=== PATIENT | male | born 1965 | race Caucasian/White ===

== ENCOUNTER 2016-08-06 15:20 | Emergency (ER) | payer MEDICARE, BC, OTHER ==
[~2016-08-06] VITALS: Ht 172.7 cm; Wt 110.0 kg
[~2016-08-06 15:20] MED LIST: CLON.2 PO; LORTA10 PO; NICO21DI2 TD; OXYC15TA PO; OXYC80TA PO; PROT40TA PO; SUCR1S PO; XANA0.5T PO
[2016-08-06 15:22] VITALS: BP 139/86; PULSE 107; RESP 16; TEMP 97.7; O2SAT 93
[2016-08-06] MEDS ORDERED: [UNRECOGNIZED DRUG - REMARK] LEFT EYE (15:45)
[2016-08-06] MEDS ORDERED: CLON0.2T PO ×2 (15:45→19:27)
[2016-08-06] MEDS ORDERED: DEPRESSION PO (16:03)
--- NOTE | 2016-08-06 16:05 | PD ---
HPI Chief Complaint: Fall Time Seen by Provider: 15:43 Travel History International Travel<30 days: No Contact w/Intl Traveler<30days: No Traveled to known affect area: No History of Present Illness HPI This 50-year-old male said he had a fall 2 days ago. He tripped on something and fell forward. He is not sure if he had a loss of consciousness. He does think he was on the ground for about 15 minutes. 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 At times. He also has some left facial palsy. He has a history of hypertension and has run out of his blood pressure medicine. He is here for evaluation of injuries from a fall. He complains of pain in his right arm. The arm is diffusely swollen and ecchymotic. He also has a lot of trouble with his left eye and sees an community organizer locally. He is on steroid drops in left eye. Patient admits to drinking a 12 pack a day but has never been told that he has cirrhosis and denies any history of withdrawal. PFSH Past Medical History Hx Anticoagulant Therapy: No Arthritis: Yes Depression: Yes Cardiovascular Problems: Yes (HTN) Diabetes: Yes Patient Takes Glucophage: No Diminished Hearing: No Gastrointestinal Disorders: Yes GERD: Yes Hypertension: Yes Medical other: Yes (CATERACT) Neurologic: Yes (BALANCE ISSUES) Immunizations Current: Yes Ulcer: Yes Tetanus Vaccination: > 5 Years Influenza Vaccination: Yes Past Surgical History Abdominal Surgery: Yes (gastric bypass- 2010, perforated bowel 02/19/13 & ) Cholecystectomy: Yes Ear Surgery: Yes (LEFT EAR) Eye Surgery: Yes Neurologic Surgery: Yes (removal of acoustic neuroma) Other Surgery: Yes (bicep- right arm) Social History Alcohol Use: No Tobacco Use: No (quit 3 weeks ago, smoked 4 ppd for 19 yrs) Substance Use: No Allergies-Medications (Allergen,Severity, Reaction): Coded Allergies: Ativan (Verified Allergy, Severe, AGITATION, 08/06/16) Celebrex (Verified Allergy, Severe, Swelling, 08/06/16) Reported Meds & Prescriptions Reported Meds & Active Scripts Active Reported [Depression] 1 Tab PO DIRECTED [Eye Steroid] 1 Drop LEFT EYE DIRECTED Clonidine (Clonidine HCl) 0.2 Mg Tab 0.2 Mg PO BID Review of Systems General / Constitutional: No: Fever, Chills Eyes: No: Diploplia, Blurred Vision HENT: Positive: Vertigo, No: Headaches, Rhinitis Cardiovascular: No: Chest Pain or Discomfort, Palpitations Respiratory: No: Cough Gastrointestinal: No: Nausea, Vomiting Genitourinary: No: Urgency, Frequency Musculoskeletal: Positive: Myalgias, Arthralgias Skin: No Itching, No Dryness Neurologic: Positive: Dizziness, No: Weakness Endocrine: Positive: Heat Intolerance, Cold Intolerance Hematologic/Lymphatic: Positive: Easy Bruising Physical Exam Narrative GENERAL: Well-developed male SKIN: Focused skin assessment warm/dry. There is extensive bruising of the face , the right arm and the right flank area HEAD: Normocephalic. He has bilateral periorbital ecchymoses. Pupils are equal. There is a left subconjunctival hemorrhage. It does appear to be some scleral icterus ENT: No nasal bleeding or discharge. Mucous membranes pink and moist. NECK: Trachea midline. No JVD. CARDIOVASCULAR: Regular rate and rhythm. No murmur appreciated. RESPIRATORY: No accessory muscle use. Clear to auscultation. Breath sounds equal bilaterally. GASTROINTESTINAL: Abdomen soft, non-tender, nondistended. Hepatic and splenic margins not palpable. There is extensive ecchymosis in the right flank area MUSCULOSKELETAL: No obvious deformities. No clubbing. No cyanosis. No edema. He has bruising and swelling of the upper and lower arm on the right side. This some tenderness with palpation of the elbow. Passive flexion and extension of the wrist does not elicit much pain NEUROLOGICAL: Awake and alert. No obvious cranial nerve deficits. Motor grossly within normal limits. Normal speech. PSYCHIATRIC: Appropriate mood and affect; insight and judgment normal. Data Data Last Documented VS Vital Signs Date Time Temp Pulse Resp B/P Pulse Ox O2 Delivery O2 Flow Rate FiO2 08/06/16 15:22 97.7 107 16 139/86 93 Orders Complete Blood Count With Diff (08/06/16 15:53) Comprehensive Metabolic Panel (08/06/16 15:53) Creatine Kinase (Cpk) (08/06/16 15:53) Prothrombin Time / Inr (Pt) (08/06/16 15:53) Act Partial Throm Time (Ptt) (08/06/16 15:53) Urinalysis - C+S If Indicated (08/06/16 15:53) Ct Brain W/O Iv Contrast(Rout) (08/06/16 15:53) Elbow, Complete (4 Vws) (08/06/16 15:53) Wrist, Complete ([id number]) (08/06/16 15:53) Ondansetron Inj (Zofran Inj) (08/06/16 17:00) Morphine Inj (Morphine Inj) (08/06/16 17:00) Phytonadione Inj (Vitamin K Inj) (08/06/16 17:00) Ct Abd/Pel W Iv Contrast(Rout) (08/06/16 16:53) Iohexol 350 Inj (Omnipaque 350 Inj) (08/06/16 18:13) Labs Laboratory Tests Test 08/06/16 08/06/16 16:00 16:20 White Blood Count 5.9 TH/MM3 Red Blood Count 2.55 MIL/MM3 Hemoglobin 9.0 GM/DL Hematocrit 26.6 % Mean Corpuscular Volume 104.5 FL Mean Corpuscular Hemoglobin 35.2 PG Mean Corpuscular Hemoglobin 33.7 % Concent Red Cell Distribution Width 17.8 % Platelet Count 22 TH/MM3 Mean Platelet Volume 8.3 FL Neutrophils (%) (Auto) 68.2 % Lymphocytes (%) (Auto) 18.2 % Monocytes (%) (Auto) 8.8 % Eosinophils (%) (Auto) 0.7 % Basophils (%) (Auto) 4.1 % Neutrophils # (Auto) 4.1 TH/MM3 Lymphocytes # (Auto) 1.1 TH/MM3 Monocytes # (Auto) 0.5 TH/MM3 Eosinophils # (Auto) 0.0 TH/MM3 Basophils # (Auto) 0.2 TH/MM3 CBC Comment AUTO DIFF Differential Comment AUTO DIFF CONFIRMED Platelet Estimate LOW Platelet Morphology Comment NORMAL Rouleau PRESENT Prothrombin Time 22.9 SEC Prothromb Time International 2.0 RATIO Ratio Activated Partial 48.3 SEC Thromboplast Time Sodium Level 130 MEQ/L Potassium Level 3.9 MEQ/L Chloride Level 96 MEQ/L Carbon Dioxide Level 20.3 MEQ/L Anion Gap 14 MEQ/L Blood Urea Nitrogen 6 MG/DL Creatinine 0.58 MG/DL Estimat Glomerular Filtration 147 ML/MIN Rate Random Glucose 140 MG/DL Calcium Level 7.2 MG/DL Protein Corrected Calcium 7.1 MG/DL Total Bilirubin 7.5 MG/DL Aspartate Amino Transf 259 U/L (AST/SGOT) Alanine Aminotransferase 55 U/L (ALT/SGPT) Alkaline Phosphatase 119 U/L Total Creatine Kinase 163 U/L Total Protein 7.5 GM/DL Albumin 1.8 GM/DL [facility] Medical Decision Making Medical Screen Exam Complete: Yes Emergency Medical Condition: Yes Medical Record Reviewed: Yes Differential Diagnosis Differential includes hepatic cirrhosis, multiple contusions, coagulopathy Narrative Course His INR is 2. His platelet count is 21,000. Gastrointestinal abdomen and CT scan is suggestive of cirrhosis he does have contusion in the flank. I think the patient would benefit from admission. He clearly needs stop drinking and has multiple problems related to heavy drinking. I discussed this at length with the patient. He is quite alert and oriented now and understands is going on. I recommended admission and the patient refuses. He says he has a dog at home that he has to care. I will prescribe him some pain medication for the arm recommended he keep it elevated. The importance that he stop drinking was stressed to the patient Diagnosis Primary Impression: Cirrhosis Qualified Code: K70.31 - Alcoholic cirrhosis of liver with ascites Additional Impressions: Coagulopathy Contusion Scripts Hydrocodone-Acetaminophen (Lortab)7.5-325 Mg Tab1 Tab PO Q4H PRN (PAIN) #20 TAB Ref 0 Prov:Kory Sanchez MD 08/06/16 Disposition: 01 DISCHARGE HOME Condition: Stable Kory Sanchez MD Aug 06, 2016 16:05
[2016-08-06 16:08] LABS: AUTOMATED NEUTROPHIL # 4.1 TH/MM3 (1.8-7.7); BASOPHIL # 0.2 TH/MM3 (0-0.2); BASOPHIL % 4.1 % (0.0-2.0); EOSINOPHIL % 0.7 % (0.0-4.0); HEMATOCRIT 26.6 % (39.0-51.0); LYMPH % 18.2 % (9.0-44.0); LYMPHOCYTE # 1.1 TH/MM3 (1.0-4.8); MEAN CELL VOLUME 104.5 FL (80.0-100.0); MEAN CORPUSCULAR HEMOGLOBIN 35.2 PG (27.0-34.0); MEAN CORPUSCULAR HGB CONC 33.7 % (32.0-36.0); MONO % 8.8 % (0.0-8.0); NEUT % 68.2 % (16.0-70.0); PLATELET COUNT 22 TH/MM3 (150-450); RED BLOOD COUNT 2.55 MIL/MM3 (4.50-5.90); RED CELL DISTRIBUTION WIDTH 17.8 % (11.6-17.2); WHITE BLOOD COUNT 5.9 TH/MM3 (4.0-11.0)
[2016-08-06 16:13] LABS: HEMO FLAGS AUTO DIFF
[2016-08-06 16:40] LABS: POTASSIUM 3.9 MEQ/L (3.5-5.1)
[2016-08-06 16:44] LABS: ROULEAUX PRESENT (NORMAL)
[2016-08-06 16:44] LABS: APTT (PATIENT) 48.3 SEC (24.3-30.1); PROTHROMBIN TIME - PATIENT 22.9 SEC (9.8-11.6)
[2016-08-06 16:47] LABS: PLATELET ESTIMATE SMEAR LOW (NORMAL); PLATELET MORPHOLOGY NORMAL (NORMAL); SCAN/DIFF AUTO DIFF CONFIRMED
[2016-08-06] MEDS ORDERED: PHYTONADIONE 10 MG/ML VIAL SQ ONE (17:00)
[2016-08-06] MEDS ORDERED: ONDANSETRON HCL 4 MG/2 ML VIAL IV PUSH ONE (17:00)
[2016-08-06] MEDS ORDERED: MORPHINE SULFATE 8 MG/ML INJ IV PUSH ONE (17:00)
--- NOTE | 2016-08-06 17:27 | RADHPO ---
EXAM DATE/TIME: 08/06/2016 16:53 [facility] COMPARISON: No previous studies available for comparison. INDICATIONS : Fall. Right elbow pain. MEDICAL HISTORY : None. SURGICAL HISTORY : None. ENCOUNTER: Initial ACUITY: 1 day PAIN SCORE: 7/10 LOCATION: Right upper extremity FINDINGS: Multiple view examination of the right elbow demonstrates no soft tissue swelling, joint effusion, or fracture. The osseous structures are in normal alignment. Bony mineralization is normal. CONCLUSION: 1. No acute fracture. No joint effusion identified. Mild irregularity at the radial tuberosity which appears chronic. Enthesopathy at the lateral epicondyle. Santos Benitez MD on August 06, 2016 at 17:25 Board Certified Radiologist. This report was verified electronically.
--- NOTE | 2016-08-06 17:29 | RADHPO ---
EXAM DATE/TIME: 08/06/2016 16:56 [facility] COMPARISON: No previous studies available for comparison. INDICATIONS : Fall. Right wrist pain. MEDICAL HISTORY : None. SURGICAL HISTORY : None. ENCOUNTER: Initial ACUITY: 2 days PAIN SCORE: 6/10 LOCATION: Right upper extremity FINDINGS: Three view examination of the right wrist demonstrates no soft tissue swelling, dislocation, or fract ure. The carpal bones are in normal alignment. The joint spaces are maintained. Bony mineralizatio n is normal. CONCLUSION: Unremarkable examination of the right wrist. Santos Benitez MD on August 06, 2016 at 17:26 Board Certified Radiologist. This report was verified electronically.
[2016-08-06 17:33] LABS: BICARBONATE 20.3 MEQ/L (21.0-32.0); TOTAL BILIRUBIN ADULT 7.5 MG/DL (0.2-1.0)
[2016-08-06 17:34] LABS: CALCIUM-PROTEIN CORRECTED 7.1 MG/DL (8.5-10.1)
[2016-08-06] MEDS ORDERED: IOHEXOL 350 MG/ML 10 ML VIAL (for RAD DIAG) IV ONE (18:13)
--- NOTE | 2016-08-06 18:24 | RADHPO ---
EXAM DATE/TIME: 08/06/2016 17:46 [facility] COMPARISON: No previous studies available for comparison. INDICATIONS : Fell two days ago. RADIATION DOSE: 59.62 CTDIvol (mGy) MEDICAL HISTORY : Hypertension. SURGICAL HISTORY : Left acoustic neuroma removed. ENCOUNTER: Initial ACUITY: 2 days PAIN SCALE: 0/10 LOCATION: cranial TECHNIQUE: Multiple contiguous axial images were obtained of the head. Using automated exposure control and adj ustment of the mA and/or kV according to patient size, radiation dose was kept as low as reasonably a chievable to obtain optimal diagnostic quality images. FINDINGS: CEREBRUM: The ventricles are normal for age. No evidence of midline shift, mass lesion, hemorrhage or acute in farction. No extra-axial fluid collections are seen. POSTERIOR FOSSA: The cerebellum and brainstem are intact. The 4th ventricle is midline. The cerebellopontine angle i s unremarkable. EXTRACRANIAL: The visualized portion of the orbits is intact. SKULL: There postoperative changes of partial resection in the left temporal bone with fluid in left mastoid air cells. CONCLUSION: 1. No acute intracranial abnormalities. Left mastoid air cell disease with postoperative changes of p artial resection of left temporal bone. Santos Benitez MD on August 06, 2016 at 18:21 Board Certified Radiologist. This report was verified electronically.
--- NOTE | 2016-08-06 18:32 | RADHPO ---
EXAM DATE/TIME: 08/06/2016 17:52 [facility] COMPARISON: No previous studies available for comparison. INDICATIONS : Fell two days ago. Right abdominal bruising and redness. IV CONTRAST: 90 cc Omnipaque 350 (iohexol) IV ORAL CONTRAST: No oral contrast ingested. RADIATION DOSE: 22.29 CTDIvol (mGy) MEDICAL HISTORY : Gastroesophageal reflux disease. Hypertension. SURGICAL HISTORY : Gastric bypass. Cholecystectomy. ENCOUNTER: Initial ACUITY: 2 days PAIN SCALE: 0/10 LOCATION: abdomen TECHNIQUE: Volumetric scanning of the abdomen and pelvis was performed. Using automated exposure control and ad justment of the mA and/or kV according to patient size, radiation dose was kept as low as reasonably achievable to obtain optimal diagnostic quality images. FINDINGS: There is a small left-sided pleural effusion. There is mild to moderate ascites. There is hepatic nile atosis. Spleen, adrenals, kidneys and pancreas unremarkable. Previous cholecystectomy. There is no bowel obstruction. No free air. No acute bony abnormalities. Postoperative changes of gas tric bypass surgery. There is also mild anasarca. Probable 2.6 cm hematoma right lateral abdominal wall. CONCLUSION: 1. Subcutaneous bruise in the right flank with probable 2.6 cm hematoma. Mild anasarca. 2. Mild to moderate ascites with hepatic steatosis. 3. Small left pleural effusion. Santos Benitez MD on August 06, 2016 at 18:23 Board Certified Radiologist. This report was verified electronically.
[2016-08-06] MEDS ORDERED: HYDR-3534 PO (19:02)
[2016-08-06 19:12] VITALS: BP 139/79; PULSE 102; RESP 16; O2SAT 98
== END 2016-08-06 19:43 | disposition home or self-care (01) ==
LOC: PHED 15:20
DX: S40.021A Contusion of right upper arm, initial encounter (principal); S00.83XA Contusion of other part of head, initial encounter; K74.60 Unspecified cirrhosis of liver; D68.9 Coagulation defect, unspecified; I10 Essential (primary) hypertension; E11.9 Type 2 diabetes mellitus without complications; K21.9 Gastro-esophageal reflux disease without esophagitis; Z87.891 Personal history of nicotine dependence; R42 Dizziness and giddiness; W18.09XA Striking against other object with subsequent fall, initial encounter; Y93.9 Activity, unspecified; Y92.9 Unspecified place or not applicable; Y99.8 Other external cause status
CPT/HCPCS: 70450; 73080; 73110; 74177; 80053; 82550; 85025; 85610; 85730; 96372; 96374; 96375; 99284; J2270; J2405; J3430; Q9967

== ENCOUNTER 2016-08-07 18:28 | Inpatient (IN) | payer MEDICARE, BC, OTHER ==
[~2016-08-07] VITALS: Ht 172.7 cm; Wt 118.2 kg
[2016-08-07] VITALS (7 sets, daily range): BP systolic 115–153; BP diastolic 66–82; PULSE 84–94; RESP 18–19; TEMP 97.7–98; O2SAT 92–95
[~2016-08-07 18:28] MED LIST changes: -CLON.2 PO; +CLON0.2T PO; +DEPRESSION PO; +HYDR-3534 PO; -LORTA10 PO; -NICO21DI2 TD; -OXYC15TA PO; -OXYC80TA PO; -PROT40TA PO; -SUCR1S PO; -XANA0.5T PO; +[UNRECOGNIZED DRUG - REMARK] LEFT EYE
--- NOTE | 2016-08-07 19:44 | PD ---
HPI Chief Complaint: Pain: Acute or Chronic Time Seen by Provider: 19:29 Travel History International Travel<30 days: No Contact w/Intl Traveler<30days: No Traveled to known affect area: No History of Present Illness HPI The patient is a 50-year-old male alcoholic who was seen here yesterday for a fall and was offered admission by Dr. Jerome. Apparently his platelet count was low at 22,000 and he had ecchymoses over the right arm. X-rays of the right arm showed no fracture. The patient lives alone but he had several friends over, drinking beer, and he got up to go to the bathroom but fell on the floor and couldn't get up. An ambulance needed be called because he was generally weak and could not get off the floor. He states he normally drinks a 12 pack a day. PFSH Past Medical History Hx Anticoagulant Therapy: No Arthritis: Yes Depression: Yes Cardiovascular Problems: Yes (HTN) Diabetes: Yes Patient Takes Glucophage: No Diminished Hearing: No Gastrointestinal Disorders: Yes GERD: Yes Hypertension: Yes Neurologic: Yes (BALANCE ISSUES) Immunizations Current: Yes Ulcer: Yes Past Surgical History Abdominal Surgery: Yes (gastric bypass- 2010, perforated bowel 02/19/13 & ) Cholecystectomy: Yes Ear Surgery: Yes (LEFT EAR) Eye Surgery: Yes Neurologic Surgery: Yes (removal of acoustic neuroma) Other Surgery: Yes (bicep- right arm) Social History Alcohol Use: Yes (~12 PK DAILY) Tobacco Use: Yes (~1 PK DAILY) Substance Use: No Allergies-Medications (Allergen,Severity, Reaction): Coded Allergies: Ativan (Verified Allergy, Severe, AGITATION, 08/07/16) Celebrex (Verified Allergy, Severe, Swelling, 08/07/16) Reported Meds & Prescriptions Reported Meds & Active Scripts Active Lortab (Hydrocodone-Acetaminophen) 7.5-325 Mg Tab 1 Tab PO Q4H PRN Reported [Depression] 1 Tab PO DIRECTED [Eye Steroid] 1 Drop LEFT EYE DIRECTED Clonidine (Clonidine HCl) 0.2 Mg Tab 0.2 Mg PO BID Review of Systems Except as stated in HPI: all other systems reviewed are Neg Physical Exam Narrative GENERAL: The patient is alert, oriented 3, smells slightly of beer but does not appear clinically intoxicated. His vital signs are normal. SKIN: Focused skin assessment warm/dry. HEAD: Atraumatic. Normocephalic. EYES: Pupils equal and round. No scleral icterus. No injection or drainage. ENT: No nasal bleeding or discharge. Mucous membranes pink and moist. Ecchymoses are present over the entire right arm. The right arm is generally swollen but no obvious bony deformity is present. NECK: Trachea midline. No JVD. CARDIOVASCULAR: Regular rate and rhythm. No murmur appreciated. RESPIRATORY: No accessory muscle use. Clear to auscultation. Breath sounds equal bilaterally. GASTROINTESTINAL: Abdomen soft, non-tender, nondistended. Hepatic and splenic margins not palpable. MUSCULOSKELETAL: No obvious deformities. No clubbing. No cyanosis. No edema. NEUROLOGICAL: Awake and alert. No obvious cranial nerve deficits. Motor grossly decreased in all 4 extremities, particularly the right arm. Normal speech. The patient has decreased pinprick sensation on the entire right arm but does feel pinprick. He can move the right arm, his strength is decreased. Pain and swelling of the right arm apparently decreases strength and ability to move normally. PSYCHIATRIC: Appropriate mood and affect; insight and judgment normal. RECTAL EXAM: No masses or tenderness, stool is brown, diarrhea and strongly guaiac positive Data Data Last Documented VS Vital Signs Date Time Temp Pulse Resp B/P Pulse Ox O2 Delivery O2 Flow Rate FiO2 08/07/16 20:25 92 18 153/72 94 Room Air 08/07/16 18:33 98.0 Orders Complete Blood Count With Diff (08/07/16 19:38) Comprehensive Metabolic Panel (08/07/16 19:38) Prothrombin Time / Inr (Pt) (08/07/16 19:38) Act Partial Throm Time (Ptt) (08/07/16 19:38) Alcohol (Ethanol) (08/07/16 19:38) Lipase (08/07/16 20:53) Type And Screen (08/07/16 20:53) Ecg Monitoring (08/07/16 20:53) Iv Access Insert/Monitor (08/07/16 20:53) Oximetry (08/07/16 20:53) Sodium Chloride 0.9% Flush (Ns Flush) (08/07/16 21:00) Sodium Chlor 0.9% 1000 Ml Inj (Ns 1000 M (08/07/16 20:53) Pantoprazole Inj (Protonix Inj) (08/07/16 21:00) Pantoprazole Inj (Protonix Inj) (08/07/16 21:00) Labs Laboratory Tests Test 08/07/16 08/07/16 19:00 20:19 Prothrombin Time 22.9 SEC Prothromb Time International 2.0 RATIO Ratio Activated Partial 49.0 SEC Thromboplast Time Sodium Level 121 MEQ/L Potassium Level 4.5 MEQ/L Chloride Level 88 MEQ/L Carbon Dioxide Level 20.0 MEQ/L Anion Gap 13 MEQ/L Blood Urea Nitrogen 10 MG/DL Creatinine 0.80 MG/DL Estimat Glomerular Filtration 102 ML/MIN Rate Random Glucose 136 MG/DL Calcium Level 7.0 MG/DL Protein Corrected Calcium 7.0 MG/DL Total Bilirubin 8.4 MG/DL Aspartate Amino Transf 277 U/L (AST/SGOT) Alanine Aminotransferase 58 U/L (ALT/SGPT) Alkaline Phosphatase 109 U/L Total Protein 7.2 GM/DL Albumin 1.7 GM/DL Ethyl Alcohol Level 258 MG/DL White Blood Count 7.9 TH/MM3 Red Blood Count 2.23 MIL/MM3 Hemoglobin 8.0 GM/DL Hematocrit 23.3 % Mean Corpuscular Volume 104.4 FL Mean Corpuscular Hemoglobin 35.8 PG Mean Corpuscular Hemoglobin 34.3 % Concent Red Cell Distribution Width 16.9 % Platelet Count 28 TH/MM3 Mean Platelet Volume 8.1 FL Neutrophils (%) (Auto) 77.8 % Lymphocytes (%) (Auto) 12.3 % Monocytes (%) (Auto) 7.3 % Eosinophils (%) (Auto) 0.4 % Basophils (%) (Auto) 2.2 % Neutrophils # (Auto) 6.1 TH/MM3 Lymphocytes # (Auto) 1.0 TH/MM3 Monocytes # (Auto) 0.6 TH/MM3 Eosinophils # (Auto) 0.0 TH/MM3 Basophils # (Auto) 0.2 TH/MM3 CBC Comment AUTO DIFF MDM Medical Decision Making Medical Screen Exam Complete: Yes Emergency Medical Condition: Yes Medical Record Reviewed: Yes Interpretation(s) The CBC shows a hemoglobin of 8.0 with platelets of 28,000. The MCV is 104.4. The hematocrit is 23.3. The glucose is 136 and the albumin is 1.7 with a calcium of 7.0. The GOT is 277 and the total bilirubin is 8.4. The sodium is 121. The bicarbonate is 20. The alcohol level is 258. The APTT is 49.0 and the ProTime is 22.9 with an INR of 2.0. Differential Diagnosis Anemia, coagulopathy, thrombocytopenia, electrolyte disorder, alcohol abuse/ intoxication, GI bleed, generalized weakness with inability to ambulate, falling spells, cirrhosis Narrative Course The patient has falling spells with inability to get off the floor today. He also has anemia with ongoing GI bleed. His rectal exam shows strongly guaiac positive stool. He has thrombocytopenia with a platelet count of 28,000. He also has a coagulopathy with an APTT of 49 and ProTime of 22.9. He has continued alcohol abuse and his alcohol level is 258. His liver enzymes exhibits cirrhosis. His hemoglobin is going down, yesterday his hemoglobin was 9.0 on today it's 8.0. Part of this may be some blood loss into the arm but much of it appears to be from GI bleed. The patient also lives alone and he was fortunate that he had friends over today that could call the ambulance for him. I discussed the patient with MIKE Rainey and the patient will be admitted to Dr. Ramiro Perez. Diagnosis Primary Impression: Anemia due to acute blood loss Additional Impressions: Alcohol abuse Falling episodes Coagulopathy Thrombocytopenia Cirrhosis Generalized weakness Og Mcdermott MD Aug 07, 2016 19:44
[2016-08-07 20:20] LABS: PROTHROMBIN TIME - PATIENT 22.9 SEC (9.8-11.6)
[2016-08-07 20:24] LABS: AUTOMATED NEUTROPHIL # 6.1 TH/MM3 (1.8-7.7); BASOPHIL # 0.2 TH/MM3 (0-0.2); BASOPHIL % 2.2 % (0.0-2.0); EOSINOPHIL % 0.4 % (0.0-4.0); HEMATOCRIT 23.3 % (39.0-51.0); LYMPH % 12.3 % (9.0-44.0); MEAN CELL VOLUME 104.4 FL (80.0-100.0); MEAN CORPUSCULAR HEMOGLOBIN 35.8 PG (27.0-34.0); MEAN CORPUSCULAR HGB CONC 34.3 % (32.0-36.0); MONO % 7.3 % (0.0-8.0); NEUT % 77.8 % (16.0-70.0); PLATELET COUNT 28 TH/MM3 (150-450); RED BLOOD COUNT 2.23 MIL/MM3 (4.50-5.90); RED CELL DISTRIBUTION WIDTH 16.9 % (11.6-17.2); WHITE BLOOD COUNT 7.9 TH/MM3 (4.0-11.0)
[2016-08-07 20:26] LABS: HEMO FLAGS AUTO DIFF
[2016-08-07 20:28] LABS: POTASSIUM 4.5 MEQ/L (3.5-5.1); TOTAL BILIRUBIN ADULT 8.4 MG/DL (0.2-1.0)
[2016-08-07] MEDS ORDERED: SODIUM CHLOR 0.9% 1000 ML INJ 1,000 ML IV SCH (20:53)
[2016-08-07] MEDS ORDERED: SODIUM CHLORIDE 0.9% FLUSH 10 ML FLUSH IVF PRN (21:00)
[2016-08-07] MEDS ORDERED: PANTOPRAZOLE INJ 80 MG in SODIUM CHLORIDE 0.9% INJ 35 ML IV ONE (21:00)
[2016-08-07 21:23] LABS: PLATELET ESTIMATE SMEAR LOW (NORMAL); PLATELET MORPHOLOGY NORMAL (NORMAL); SCAN/DIFF AUTO DIFF CONFIRMED
[2016-08-07] MEDS: PANTOPRAZOLE INJ 80 MG in SODIUM CHLORIDE 0.9% INJ 100 ML IV SCH (21:38)
[2016-08-07] MEDS ORDERED: SODIUM CHLORIDE 0.9% FLUSH 10 ML FLUSH IV FLUSH PRN (22:45)
[2016-08-07] MEDS ORDERED: ONDANSETRON HCL 4 MG/2 ML VIAL IVP PRN (22:45)
[2016-08-07] MEDS ORDERED: FLUMAZENIL 0.5 MG/5 ML VIAL IV PUSH PRN (22:45)
[2016-08-07] MEDS ORDERED: PHYTONADIONE 10 MG/ML VIAL SQ ONE (22:45)
[2016-08-07] MEDS ORDERED: NALOXONE HCL 0.4 MG/ML AMP IV PRN (22:45)
[2016-08-07] MEDS: DEXT 5%-NACL 0.9% 1000 ML INJ 1,000 ML IV SCH (23:24)
[2016-08-08] VITALS (7 sets, daily range): BP systolic 134–160; BP diastolic 70–83; PULSE 86–101; RESP 16–22; TEMP 96.6–98.7; O2SAT 91–96
[2016-08-08] MEDS ORDERED: CALCIUM GLUCONATE INJ 1 GM in SODIUM CHLORIDE 0.9% INJ 100 ML IV ONE (01:00)
[2016-08-08] MEDS: THIAMINE INJ 100 MG in SODIUM CHLORIDE 0.9% INJ 100 ML IV SCH (01:09)
[2016-08-08] MEDS: MULTIVITAMIN INJ 10 ML, FOLIC ACID INJ 1 MG in SODIUM CHLORID 0.9% 500 ML INJ 500 ML IV SCH (01:09)
[2016-08-08] MEDS: PANTOPRAZOLE INJ 80 MG in SODIUM CHLORIDE 0.9% INJ 100 ML IV SCH ×2 (06:28→19:32)
[2016-08-08] MEDS: DEXT 5%-NACL 0.9% 1000 ML INJ 1,000 ML IV SCH ×2 (06:29→21:39)
[2016-08-08 07:00] LABS: AUTOMATED NEUTROPHIL # 6.2 TH/MM3 (1.8-7.7); BASOPHIL % 0.6 % (0.0-2.0); EOSINOPHIL % 0.6 % (0.0-4.0); LYMPH % 16.2 % (9.0-44.0); LYMPHOCYTE # 1.3 TH/MM3 (1.0-4.8); MEAN CELL VOLUME 104.1 FL (80.0-100.0); MEAN CORPUSCULAR HEMOGLOBIN 36.1 PG (27.0-34.0); MEAN CORPUSCULAR HGB CONC 34.7 % (32.0-36.0); MONO % 7.5 % (0.0-8.0); NEUT % 75.1 % (16.0-70.0); PLATELET COUNT 30 TH/MM3 (150-450); RED BLOOD COUNT 1.97 MIL/MM3 (4.50-5.90); RED CELL DISTRIBUTION WIDTH 16.9 % (11.6-17.2); WHITE BLOOD COUNT 8.1 TH/MM3 (4.0-11.0)
[2016-08-08 07:03] LABS: INTERNATIONAL NORMALIZED RATIO 2.1 RATIO; PROTHROMBIN TIME - PATIENT 23.6 SEC (9.8-11.6)
[2016-08-08 07:13] LABS: HEMO FLAGS AUTO DIFF
[2016-08-08 07:14] LABS: HEMATOCRIT 20.5 % (39.0-51.0)
[2016-08-08 07:23] LABS: BICARBONATE 18.9 MEQ/L (21.0-32.0); INDIRECT BILIRUBIN 3.5 MG/DL (0.0-0.8); TOTAL BILIRUBIN ADULT 8.6 MG/DL (0.2-1.0)
[2016-08-08 07:45] LABS: SCAN/DIFF AUTO DIFF CONFIRMED
[2016-08-08 07:50] LABS: CALCIUM-PROTEIN CORRECTED 6.9 MG/DL (8.5-10.1)
[2016-08-08] MEDS ORDERED: LORazepam 2 MG/ML VIAL IV PRN (09:15)
[2016-08-08] MEDS: ACETAMINOPHEN/HYDROcodone 325 MG/7.5 MG TAB PO PRN ×2 (09:32→13:19)
[2016-08-08] MEDS: cloNIDine HCL 0.2 MG TAB PO SCH ×2 (09:32→21:40)
[2016-08-08] MEDS: SODIUM CHLORIDE 0.9% FLUSH 10 ML FLUSH IV FLUSH SCH ×2 (09:33→21:40)
--- NOTE | 2016-08-08 09:49 | MH ---
cc: RAMIRO RAMIREZ MD DATE OF ADMISSION 08/07/2016 CHIEF COMPLAINT Status post fall, swelling and pain on the right upper extremity and bruising. HISTORY OF PRESENT ILLNESS This is 50-year-old chronic alcoholic male with past medical-surgical history significant for hypertension, arthritis, depression, history of gastroesophageal reflux disease, history of ascites, portal hypertension, history of balance issue, has a history of left ear acoustic neuroma surgeries, had a gastric bypass surgery in 2010, stomach ulcer, perforated bowel on February 19, 2013 and February 21, 2013 had a cholecystectomy. He smoke one pack daily and drinks a 12-pack of alcohol daily. He said that he had a fall because he has a balance problem at home. Platelet count was 22,000. He drinks heavily for many years. His INR is 2.1 and his APTT is 49.0. He is not on any blood thinner like Coumadin. He has a hemoglobin of 7.1 with hematocrit of 20.5, with a platelet count of 30. Alcohol level is 258. He has a bruise and swelling on the right upper extremity. X-ray of the arm done shows no fracture. He lives alone, but had several friends over drinking beer. He went to the bathroom and then he said he had a balance problem and he fell down and could not get up. He was brought by the ambulance feels generalized weak. Denies any chest pain, any blood in stool, any black stool any bloody vomiting, any nausea, vomiting, diarrhea, any chest pain, shortness of breath, any fever or chills, any injury anywhere else. Other than that, nothing significant. PAST MEDICAL/SURGICAL HISTORY As dictated above. SOCIAL HISTORY He smoked one pack a day for many years and drinks a 12-pack on a daily basis. Denies any drug abuse. Lives at home alone. He is on disability. FAMILY HISTORY Significant for cancer or coronary artery disease. ALLERGIES ATIVAN AND CELEBREX. MEDICATIONS Include: 1. Lortab 7.5/325 p.o. q4h p.r.n/pain 2. Clonidine 0.2 mg p.o. b.i.d. REVIEW OF SYSTEMS Positive for swelling, pain on the right upper extremity, distended abdomen, feeling weak and tired, all other review of systems negative. PHYSICAL EXAMINATION This is a 50-year-old male laying on the bed not in acute distress. VITAL SIGNS: Temperature 96.6, heart rate 99, respirations 16, blood pressure 160/83, O2 saturation 91% at room air. HEENT: Normocephalic, atraumatic. EOMI. PERRL. Oral mucosa moist. NECK: Supple. CARDIOVASCULAR: Regular rate and rhythm. Respirations clear to auscultation bilaterally. ABDOMEN: Soft, obese. Bowel sounds audible. EXTREMITIES: Shows swelling of the right upper extremity with tightness and right forearm keeping the right upper extremity elevated. The right upper extremity is warm to touch, has a passive range of motion. range of motion, mild pain, moving all extremities well. No cyanosis or clubbing. NEUROLOGIC: Awake, alert, and oriented x4. No focal deficits. SKIN: Warm with multiple bruises in the right upper extremity and chest area. PSYCH: The mood and affect is normal. The patient is cooperative. LABORATORY DATA Include PTT 22.9 and 23.6, INR 2.0 and 2.1, APTT 49.0. BMP shows sodium was 121 now it is 125, chloride 93 low, carbon dioxide 18.9 low, glucose 157 high, calcium 6.7 low, bilirubin total 8.6, direct bilirubin 5.1, indirect bilirubin 3.5. AST 262, ALT and alkaline phosphatase are normal. Ammonia level 79, albumin 1.6 low, lipase 1314. Initially lipase was 1773, decreased down to 1314. CBC showed WBC count 8.1, hemoglobin 7.1, hematocrit 20.5, MCV is 104.1, MCH is 36.1. Alcohol level 258, blood group B+, antibody screen negative. ASSESSMENT/PLAN This is 50-year-old male who came to the ER diagnosed with status post fall secondary to balance problem, secondary to the left acoustic neuroma removed causing the large bruises. Need to check the right upper extremity frequently for compartment syndrome, general surgery is consulted. Keep the right upper extremity elevated and frequently check neurovascular status. Acute anemia secondary to acute bleed in the right upper extremity. We will monitor H&H and give two units packed RBC blood transfusion. Low platelets secondary to alcoholic liver disease. Hematology consulted, give platelet transfusion. Hyponatremia. The patient is on normal saline. We will monitor, improving. Hypocalcemia. The patient is status post calcium gluconate. High LFTs secondary to alcoholic liver disease. GI consulted. Further recommendation per GI. High lipase. The patient denies any abdominal pain. Alcohol abuse. The patient's alcohol level is 258. The patient advised to stop drinking alcohol. The patient is on DVT prophylaxis, Ativan, thiamine, folic acid and Librium.. Coagulopathy, INR 2.1, secondary to alcohol liver disease. Generalized weakness secondary to multiple factor as dictated above. History of left acoustic neuroma status post removal, the patient has a balance problem because of that. DVT prophylaxis, SCD's. GI prophylaxis, Protonix. PLAN We are going to manage the patient on a daily basis and make recommendations on a daily basis. Discussed the case with Maricarmen and the patient in detail. The patient verbalized understanding and agrees with the plan. Ramiro Ramirez MD EA/MACK /9:07 AM /9:34 AM
[2016-08-08] MEDS: chlordiazePOXIDE 25 MG CAP PO SCH ×2 (13:19→17:10)
--- NOTE | 2016-08-08 14:26 | RADHPO ---
EXAM DATE/TIME: 08/08/2016 10:34 [facility] COMPARISON: No previous studies available for comparison. INDICATIONS : Right arm swelling and bruising. MEDICAL HISTORY : Gastroesophageal reflux disease. Hypertension. Arthritis. Ulcer. SURGICAL HISTORY : Cholecystectomy. Total knee replacement, left. Total knee replacement, right. Tail bone removal. Lef t ear surgery. ENCOUNTER: Initial ACUITY: 1 week PAIN SCORE: 5/10 LOCATION: Right arm. FINDINGS: There is spontaneous flow documented in the brachial, basilic, cephalic, axillary, and subclavian vei ns. The vessels are compressible and augmentation response is documented. No filling defects are se en. The flow is phasic with respiration. Direction of flow in the jugular vein is caudal. There is some regional soft tissue swelling. CONCLUSION: Soft tissue swelling. Otherwise negative without DVT. Kishor Kim MD on August 08, 2016 at 14:22 Board Certified Radiologist. This report was verified electronically.
[2016-08-08] MEDS: MORPHINE SULFATE 4 MG/ML INJ IV PUSH PRN (14:53)
--- NOTE | 2016-08-08 17:10 | PD.CAR.PN ---
CVT Progress Note Subjective/Hospital Course: 08/08/2016 Consult received patient examined Full consult dictated Patient does not have compartment syndrome however he does have swelling and bleeding into the tissues of the right arm and the should be elevated on pillows and warm compresses applied Will follow Lenore Nieves Objective: Vital Signs Date Time Temp Pulse Resp B/P Pulse Ox O2 Delivery O2 Flow Rate FiO2 08/08/16 15:00 90 08/08/16 14:58 20 08/08/16 14:19 18 08/08/16 12:00 98.0 95 22 138/70 96 08/08/16 08:00 96.6 99 16 160/83 91 08/08/16 07:20 98 08/08/16 04:00 97.6 101 20 134/80 91 08/07/16 23:45 80 18 150/81 95 08/07/16 23:40 97.7 94 18 152/82 92 08/07/16 23:00 91 08/07/16 21:20 84 19 139/67 94 Room Air 08/07/16 20:25 92 18 153/72 94 Room Air 08/07/16 19:00 84 18 115/66 94 Room Air 08/07/16 18:38 86 08/07/16 18:33 98.0 86 18 134/70 95 Labs: Laboratory Tests Test 08/08/16 08/08/16 08/08/16 05:35 09:24 09:50 White Blood Count 8.1 TH/MM3 (4.0-11.0) Red Blood Count 1.97 MIL/MM3 (4.50-5.90) Hemoglobin 7.1 GM/DL (13.0-17.0) Hematocrit 20.5 % (39.0-51.0) Mean Corpuscular Volume 104.1 FL (80.0-100.0) Mean Corpuscular Hemoglobin 36.1 PG (27.0-34.0) Mean Corpuscular Hemoglobin 34.7 % Concent (32.0-36.0) Red Cell Distribution Width 16.9 % (11.6-17.2) Platelet Count 30 TH/MM3 (150-450) Mean Platelet Volume 8.9 FL (7.0-11.0) Neutrophils (%) (Auto) 75.1 % (16.0-70.0) Lymphocytes (%) (Auto) 16.2 % (9.0-44.0) Monocytes (%) (Auto) 7.5 % (0.0-8.0) Eosinophils (%) (Auto) 0.6 % (0.0-4.0) Basophils (%) (Auto) 0.6 % (0.0-2.0) Neutrophils # (Auto) 6.2 TH/MM3 (1.8-7.7) Lymphocytes # (Auto) 1.3 TH/MM3 (1.0-4.8) Monocytes # (Auto) 0.6 TH/MM3 (0-0.9) Eosinophils # (Auto) 0.0 TH/MM3 (0-0.4) Basophils # (Auto) 0.0 TH/MM3 (0-0.2) CBC Comment AUTO DIFF Differential Comment AUTO DIFF CONFIRMED Prothrombin Time 23.6 SEC (9.8-11.6) Prothromb Time International 2.1 RATIO Ratio Sodium Level 125 MEQ/L (136-145) Potassium Level 4.0 MEQ/L (3.5-5.1) Chloride Level 93 MEQ/L (98-107) Carbon Dioxide Level 18.9 MEQ/L (21.0-32.0) Anion Gap 13 MEQ/L (5-15) Blood Urea Nitrogen 9 MG/DL (7-18) Creatinine 0.62 MG/DL (0.60-1.30) Estimat Glomerular Filtration 136 ML/MIN Rate (>89) Random Glucose 157 MG/DL (74-106) Calcium Level 6.7 MG/DL (8.5-10.1) Protein Corrected Calcium 6.9 MG/DL (8.5-10.1) Total Bilirubin 8.6 MG/DL (0.2-1.0) Direct Bilirubin 5.1 MG/DL (0.0-0.2) Indirect Bilirubin 3.5 MG/DL (0.0-0.8) Aspartate Amino Transf 262 U/L (15-37) (AST/SGOT) Alanine Aminotransferase 55 U/L (12-78) (ALT/SGPT) Alkaline Phosphatase 99 U/L (45-117) Ammonia 79 MCMOL/L (11-32) Total Protein 6.8 GM/DL (6.4-8.2) Albumin 1.6 GM/DL (3.4-5.0) Lipase 1314 U/L (73-393) Blood Type B POSITIVE B POSITIVE Crossmatch Leukocyte-Reduced Red Blood Cells Blood Bank Comment Result Diagram: 08/08/16 0535 08/08/16 0535 Khloe Neumann MD Aug 08, 2016 17:10
[2016-08-08] MEDS ORDERED: SODIUM CHLOR 0.9% 250 ML INJ 250 ML IV ONE (18:30)
[2016-08-08] MEDS ORDERED: PHYTONADIONE 10 MG/ML VIAL SQ ONE (18:30)
--- NOTE | 2016-08-08 20:23 | MB ---
cc: KHLOE DUKES MD DATE OF CONSULTATION 08/08/16 REASON FOR CONSULTATION Liver failure, cirrhosis, portal hypertension, injury to the right arm - possible compartment syndrome, HISTORY OF PRESENT ILLNESS This 50-year-old male was admitted to [facility] after he fell at home, drunk, and apparently somebody brought him to the hospital. The patient is known to our institution. He has history of ascites, portal hypertension and alcoholism. The patient has other medical problems. He has swelling of the right arm and some bruising without any fracture and question arises if he has a compartment syndrome considering the swelling of his lower arm. PAST MEDICAL HISTORY Complex including 1. Alcoholism 2. Portal hypertension, 3. Ascites 4. Liver insufficiency. PAST SURGICAL HISTORY 1. Perforated gastric ulcer 2. Perforated colon. 3. In 2012, cholecystectomy, 4. Left ear acoustic neuroma surgery 5. Gastric bypass surgery in 2010 6. Hypocoagulable state with chronic thrombocytopenia, elevated PT/INR. SOCIAL HISTORY The patient drinks heavily at least a 12-pack of beer and additional alcohol. Smokes one to two packs a day. MEDICATIONS Variable. Patient should be on clonidine. Whether he is or not I do not know. REVIEW OF SYSTEMS The patient is awake and alert. PHYSICAL EXAMINATION GENERAL: A 50-year-old male in no acute distress. HEENT: Normocephalic. No trauma to the head. Pupils are equal, reactive. Extraocular muscles appear to be intact. Sclerae are icteric lightly, probably with bilirubin of 5 or so; usually when it is over 6 then it is becomes obvious CHEST: Bilateral breath sounds decreased over both lung salazar consistent with COPD. HEART: Regular rhythm. ABDOMEN: Distended, soft. Hypoactive bowel sounds on percussion hyperresonant on the Top consistent with small bowel loops floating on the top and then dull on the sides consistent with ascites, no rebound or guarding. Scars from previous surgery noted. This patient has pretty significant ascites. Liver is palpated about 4 inches below the costal margin in midclavicular line and can feel the spleen due to abdominal distension. GROIN: Groins are normal. The patient has bilateral small inguinal hernias. EXTREMITIES: The patient has atrophy of all four extremities with atrophy of the musculature. He has palpable femoral pulses, palpable posterior tibial and dorsalis pedis. In the arms, he has palpable brachial, radial and ulnar on both sides. Right arm is swollen somewhat in the upper arm but mainly below the level of elbow. There is bruising noted with dark discoloration which is fairly fresh bruising and lower arm is somewhat firm. However, motorically and sensory, the patient is fully intact and has good palpable pulses. Tissue is firm but not tense and clearly the patient does not have a compartment syndrome, but merely swelling venous ultrasound would be negative as it is. NEUROLOGIC: Neurologically, the patient is fully intact. He has no deficit in either arm. He has no motoric deficit either. IMPRESSION/RECOMMENDATIONS This gentleman does not have a compartment syndrome, but merely bruising and injury to the arm with soft tissue edema and bleeding. Considering that platelet count is around 20 to 30,000 and his INR is over 2 i.e. being fully anticoagulated despite the fact ge is not on Coumadin puts him on ADILENE 4 criteria category in addition to ascites and liver failure, elevated ammonia and bilirubin. With this MELD score, this patient's survival is less than one year average just by natural history of the disease. At this point, he does not require any surgical therapy. I will continue to follow patient which you. Thank you much for referral. Critical care time 40 minutes. Khloe VALENTE /4:53 PM /8:01 PM
--- NOTE | 2016-08-08 22:33 | MB ---
cc: AURELIO MENDIETA MD DATE OF CONSULTATION 08/08/[address] Perez REASON FOR CONSULTATION Hematology was consulted to render opinion regarding patient with thrombocytopenia and anemia. HISTORY OF PRESENT ILLNESS The patient is a 50 year old male with history of alcohol abuse and cirrhosis with portal hypertension, brought into the hospital after he fell. The patient he had history of unsteady gait and fell about four days ago. He went to the emergency room two days ago and found to have platelet count of 21,000. He was complaining of pain in the right arm at that time. He was offered admission but refused. When he went home, he started drinking again with his friend. He fell in the bathroom and could not get up. He was brought into emergency room by EMS. He was found to have a platelet count of 28,000 and hemoglobin of eight. He was noted to have increased swelling of the right upper extremity. He was transferred to the [facility] to be evaluated by a surgeon to make sure he does not have compartment syndrome. The patient is not a very good historian. He denies chest pain. Denies shortness of breath or cough. Denies nausea, vomiting, diarrhea, abdominal pain. Denies any melena or hematochezia. Denies any dysuria or hematuria, denies any headache. Denies any visual changes. He stated he drinks up to 12 packs of beer a day. PAST MEDICAL HISTORY 1. Hypertension, 2. Osteoarthritis, 3. Depression, 4. Alcohol abuse, 5. Gastroesophageal reflux disease, 6. Cirrhosis 7. Portal hypertension 8. Ascites. 9. Stomach ulcer 10. History of perforated bowel 11. Unsteady gait. PAST SURGICAL HISTORY 1. Resection of left ear acoustic neuroma 2. Gastric bypass surgery, 3. Cholecystectomy. SOCIAL HISTORY Smoked a pack a day and drinks a 12-pack of beer a day. He lives alone. FAMILY HISTORY Noncontributory. SOCIAL HISTORY Ativan and Celebrex MEDICATIONS 1. Lortab. 2. Clonidine. Outpatient currently on. 1. Folic acid. 2. Thiamine 3. Librium 4. Pantoprazole. REVIEW OF SYSTEMS CONSTITUTIONAL: Denies any fever, chills, night sweat, weight loss. EYES: Denies any blurry vision, double vision. ENT: Denies mouth sores or voice changes. CARDIOVASCULAR: Denies chest pressure, palpitation RESPIRATORY: Shortness of breath, cough. GI: Denies nausea, vomiting, diarrhea, abdominal pain : No dysuria or hematuria. MUSCULOSKELETAL: Right arm pain HEMATOLOGY: As above. ENDOCRINE: Negative DERMATOLOGY: Diffuse ecchymosis, no rash. NEUROLOGIC: Negative. PHYSICAL EXAMINATION VITAL SIGNS: Temperature 98.7, blood pressure 153/82, O2 saturation 94% room air. GENERAL: He is alert and oriented x3 in no acute distress. HEENT: Ecchymosis of left periorbital area. Oropharynx no lesion. NECK: No thyromegaly, no palpable mass LYMPHATIC: No palpable cervical, clavicular, axillary or inguinal lymph node CARDIOVASCULAR: Regular S1-S2 no murmur. LUNGS: Clear to auscultation bilaterally. ABDOMEN: Little distended, soft, nontender. Liver and spleen edge is palpable. EXTREMITIES: 2+ lower extremity edema. No calf tenderness. SKIN: Ecchymosis on his lower extremities, abdominal wall and especially the right upper extremity. Right upper extremity is edematous but soft. NEUROLOGIC: Nonfocal. LABORATORY DATA Reviewed ASSESSMENT 1. Thrombocytopenia which is acute on chronic. I think he has underlying thrombocytopenia due to cirrhosis and splenomegaly. He presented on August 06 with platelet count 22,000. Yesterday it went up to 28,000. I think the recent drop in platelet count is likely due to alcohol intoxication. His alcohol level was 258. He had received one unit of platelet transfusion this morning. 2. Anemia likely multifactorial from bleeding and bone marrow suppression due to alcohol. He can also have vitamin deficiency given his history of gastric bypass surgery. 3. Coagulopathy. He presented with INR of 2.0. I think this is due to liver disease from alcohol use. Given that he has bleeding, we will give him vitamin K as well as fresh frozen plasma. Continue to monitor. 4. Right arm swelling after a fall. He has ecchymosis. He likely had bleeding in the soft tissue. He was evaluated by cardiovascular surgeon and no compartment syndrome noted. Ultrasound did not show any deep venous thrombosis. 5. Alcohol abuse. He drinks up to a 12-pack of beer a day. 6. Hypertension. 7. Cirrhosis with portal hypertension and ascites due to alcohol abuse. RECOMMENDATIONS 1. Proceed with anemia workup. 2. We will give him two units of FFP. 3. We will give him vitamin K 4. He is getting packed red blood cells transfusion and platelet transfusion. 5. Monitor CBC and coagulation study. Thank you, Dr. Perez, for asking me to see this patient. MD JUDI Adames/ /6:33 PM /10:06 PM GERARDO
[2016-08-08] MEDS: HALOPERIDOL LACTATE 5 MG/ML AMP IM PRN (23:18)
[2016-08-09] VITALS (8 sets, daily range): BP systolic 139–164; BP diastolic 67–91; PULSE 83–124; RESP 20–22; TEMP 97.8–98.7; O2SAT 95–97
[2016-08-09] MEDS: MULTIVITAMIN INJ 10 ML, FOLIC ACID INJ 1 MG in SODIUM CHLORID 0.9% 500 ML INJ 500 ML IV SCH (02:48)
[2016-08-09] MEDS: THIAMINE INJ 100 MG in SODIUM CHLORIDE 0.9% INJ 100 ML IV SCH (02:48)
[2016-08-09] MEDS: PANTOPRAZOLE INJ 80 MG in SODIUM CHLORIDE 0.9% INJ 100 ML IV SCH (03:41)
[2016-08-09 05:19] LABS: AUTOMATED NEUTROPHIL # 4.2 TH/MM3 (1.8-7.7); BASOPHIL % 0.6 % (0.0-2.0); EOSINOPHIL % 0.8 % (0.0-4.0); HEMATOCRIT 25.4 % (39.0-51.0); LYMPHOCYTE # 0.5 TH/MM3 (1.0-4.8); MEAN CELL VOLUME 99.3 FL (80.0-100.0); MEAN CORPUSCULAR HEMOGLOBIN 34.1 PG (27.0-34.0); MEAN CORPUSCULAR HGB CONC 34.4 % (32.0-36.0); MONO % 7.9 % (0.0-8.0); NEUT % 81.7 % (16.0-70.0); PLATELET COUNT 34 TH/MM3 (150-450); RED BLOOD COUNT 2.56 MIL/MM3 (4.50-5.90); RED CELL DISTRIBUTION WIDTH 22.5 % (11.6-17.2); WHITE BLOOD COUNT 5.1 TH/MM3 (4.0-11.0)
[2016-08-09 05:20] LABS: HEMO FLAGS AUTO DIFF
[2016-08-09 05:32] LABS: APTT (PATIENT) 49.9 SEC (24.3-30.1); INTERNATIONAL NORMALIZED RATIO 1.9 RATIO; PROTHROMBIN TIME - PATIENT 21.8 SEC (9.8-11.6)
[2016-08-09] MEDS: ACETAMINOPHEN/HYDROcodone 325 MG/7.5 MG TAB PO PRN ×2 (05:58→14:41)
[2016-08-09 06:05] LABS: ALKALINE PHOSPHATASE 103 U/L (45-117); ALT (GPT) 55 U/L (12-78); ANION GAP 7 MEQ/L (5-15); AST (GOT) 249 U/L (15-37); BICARBONATE 23.9 MEQ/L (21.0-32.0); BLOOD UREA NITROGEN 8 MG/DL (7-18); CHLORIDE 93 MEQ/L (98-107); FERRITIN 183 NG/ML (26-388); GLOMERULAR FILTRATION RATE 141 ML/MIN (>89); POTASSIUM 3.9 MEQ/L (3.5-5.1); TOTAL BILIRUBIN ADULT 9.8 MG/DL (0.2-1.0); TRANSFERRIN IRON PROFILE 143 MG/DL (200-360)
[2016-08-09 06:20] LABS: SODIUM (NA) 124 MEQ/L (136-145)
[2016-08-09 07:19] LABS: BANDS 9 % (0-6); NEUTROPHIL # MANUAL DIFF 4.8 TH/MM3 (1.8-7.7); POLYS (SEG NEUTROPHILS) 85 % (16-70)
[2016-08-09 07:20] LABS: PLATELET ESTIMATE SMEAR LOW (NORMAL); PLATELET MORPHOLOGY NORMAL (NORMAL); SCAN/DIFF FINAL DIFF MANUAL; TARGET CELLS 1+ (NORMAL); WBC DIFF SAMPLE 100
--- NOTE | 2016-08-09 08:21 | HHI.PR ---
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 no Acute Issue Review of Systems Constitutional Constitutional: Fatigue, Weakness Integumentary Skin Remarks Multiple right arm and chest Bruises Vitals/Results Intake & Output 08/08/16 08/08/16 08/09/16 15:00 23:00 07:00 Intake Total 652 ml 487 ml Output Total 700 ml 600 ml Balance -48 ml -113 ml Intake Oral 0 ml 0 ml IV Total 402 ml 487 ml Packed Cells 250 ml Output Urine Total 700 ml 600 ml # Bowel Movements 0 0 Vital Signs Vital Signs Date Time Temp Pulse Resp B/P Pulse Ox O2 Delivery O2 Flow Rate FiO2 08/09/16 06:58 22 08/09/16 04:00 98.5 90 22 152/88 96 08/09/16 04:00 90 08/09/16 00:00 83 08/09/16 00:00 98.4 83 20 145/67 97 08/08/16 20:00 98.2 86 22 143/82 96 08/08/16 20:00 86 08/08/16 16:00 98.7 92 20 153/82 94 08/08/16 15:00 90 08/08/16 14:58 20 08/08/16 12:00 98.0 95 22 138/70 96 CBC/BMP: 08/09/16 0402 08/09/16 0402 Lab Results Laboratory Tests Test 08/08/16 08/08/16 08/08/16 08/09/16 09:24 09:50 18:25 04:02 Blood Type B POSITIVE B POSITIVE Crossmatch Leukocyte-Reduced Red Blood Cells Blood Bank Comment White Blood Count 5.1 TH/MM3 Red Blood Count 2.56 MIL/MM3 Hemoglobin 8.7 GM/DL Hematocrit 25.4 % Mean Corpuscular Volume 99.3 FL Mean Corpuscular Hemoglobin 34.1 PG Mean Corpuscular Hemoglobin 34.4 % Concent Red Cell Distribution Width 22.5 % Platelet Count 34 TH/MM3 Mean Platelet Volume 8.5 FL Neutrophils (%) (Auto) 81.7 % Lymphocytes (%) (Auto) 9.0 % Monocytes (%) (Auto) 7.9 % Eosinophils (%) (Auto) 0.8 % Basophils (%) (Auto) 0.6 % Neutrophils # (Auto) 4.2 TH/MM3 Lymphocytes # (Auto) 0.5 TH/MM3 Monocytes # (Auto) 0.4 TH/MM3 Eosinophils # (Auto) 0.0 TH/MM3 Basophils # (Auto) 0.0 TH/MM3 CBC Comment AUTO DIFF Differential Total Cells 100 Counted Neutrophils % (Manual) 85 % Band Neutrophils % 9 % Lymphocytes % 3 % Monocytes % 3 % Neutrophils # (Manual) 4.8 TH/MM3 Differential Comment FINAL DIFF MANUAL Platelet Estimate LOW Platelet Morphology Comment NORMAL Polychromasia 2.0 % Target Cells 1+ Prothrombin Time 21.8 SEC Prothromb Time International 1.9 RATIO Ratio Activated Partial 49.9 SEC Thromboplast Time Fibrinogen 91 mg/dL Sodium Level 124 MEQ/L Potassium Level 3.9 MEQ/L Chloride Level 93 MEQ/L Carbon Dioxide Level 23.9 MEQ/L Anion Gap 7 MEQ/L Blood Urea Nitrogen 8 MG/DL Creatinine 0.60 MG/DL Estimat Glomerular Filtration 141 ML/MIN Rate Random Glucose 140 MG/DL Calcium Level 6.9 MG/DL Protein Corrected Calcium 7.0 MG/DL Iron Level 140 MCG/DL Total Iron Binding Capacity 200 MCG/DL Percent Iron Saturation 69.9 % Ferritin 183 NG/ML Total Bilirubin 9.8 MG/DL Aspartate Amino Transf 249 U/L (AST/SGOT) Alanine Aminotransferase 55 U/L (ALT/SGPT) Alkaline Phosphatase 103 U/L Total Protein 6.9 GM/DL Albumin 1.8 GM/DL Vitamin B12 Level 5267 PG/ML Folate 5.7 NG/ML Physical Exam General General Appearance: No Acute Distress, Comfortable Eyes Eye Exam: Pupils Equal, Pupils Reactive, Sclera White, Extraocular Movement Intact Throat Throat Exam: Oral Mucosa [place] & Moist, Oral Pharynx Normal Neck Neck Exam: Neck Supple, Trachea Midline Pulmonary Resp Exam: Clear Bilaterally, Breath Sounds Equal, No Distress Cardiology CV Exam: Regular, Normal Sinus Rhythm Gastrointestinal/Abdomen GI Exam: Soft, Non-Tender, Bowel Sounds Present Musculoskeletal MS Exam: Normal Tone, Unable to Ambulate MS Remarks swelling and bruises right upper extremity. Integumentary Skin Exam: Warm, Dry Skin Remarks Multiple Bruises right upper extremity and chest. Neurologic Neuro Exam: Alert, Awake, Oriented, Speech Clear, Moving All Extremities, No Focal Deficits Psychiatric Psych Exam: Appropriate Responses VTE Prophylaxis VTE Prophylaxis Device: SCDs PUD Prophylasis PUD Prophylaxis: Protonix Assessment/Plan Assessment/Plan ASSESSMENT/PLAN This is 50-year-old male who came to the ER diagnosed with status post fall secondary to balance problem, secondary to the left acoustic neuroma removed and Alcohol intoxication causing the large bruises. Need to check the right upper extremity frequently for compartment syndrome, Vascular surgery input noted. Keep the right upper extremity elevated and frequently check neurovascular status. Acute anemia secondary to acute bleed in the right upper extremity. We will monitor H&H and give two units packed RBC blood transfusion. Low platelets secondary to alcoholic liver disease. Hematology input noted, s/p platelet transfusion. Hyponatremia. The patient is on normal saline. We will monitor, improving. Hypocalcemia. The patient is status post calcium gluconate. High LFTs secondary to alcoholic liver disease. GI input noted. Further recommendation per GI. High lipase. The patient denies any abdominal pain. Alcohol abuse. The patient's alcohol level is 258. The patient advised to stop drinking alcohol. The patient is on DVT prophylaxis, thiamine, folic acid and Librium.. Coagulopathy, INR 2.1, secondary to alcohol liver disease. Generalized weakness secondary to multiple factor as dictated above. History of left acoustic neuroma status post removal, the patient has a balance problem because of that. DVT prophylaxis, SCD's. GI prophylaxis, Protonix. We are going to manage the patient on a daily basis and make recommendations on a daily basis. Discussed Condition with: Patient Ramiro Perez MD Aug 09, 2016 08:21
[2016-08-09] MEDS: cloNIDine HCL 0.2 MG TAB PO SCH ×2 (09:00→21:21)
[2016-08-09] MEDS: SODIUM CHLORIDE 0.9% FLUSH 10 ML FLUSH IV FLUSH SCH ×2 (09:00→21:00)
[2016-08-09] MEDS: FOLIC ACID 1 MG TAB PO SCH (09:00)
[2016-08-09] MEDS: THIAMINE HCL 100 MG TAB PO SCH (09:00)
[2016-08-09] MEDS: chlordiazePOXIDE 25 MG CAP PO SCH ×3 (09:00→18:26)
--- NOTE | 2016-08-09 09:17 | PD.CONS ---
HPI History of Present Illness This is a 50 year old male patient who came to the ER after a fall 5 days ago for evaluation of RUE swelling and ecchymosis. He was found to have severe pancytopenia and multiple electrolyte abnormalities and admitted to the ICU for further evaluation. US of the RUE revealed soft tissue swelling, but no DVT. Xray of the wrist and elbow was negative for acute fracture. He was sent to this facility for evaluation of RUE swelling, possible compartment syndrome. However, he was evaluated by CVT and he does not feel that this is compartment syndrome- he has good pulses, no numbness, tingling, pain. GI was consulted for anemia, possible GIB. He is on a Protonix Gtt. H/H 8.7/25.4, Plt 34, PT 21.8, INR 1.9, APTT 49.9, Fibrinogen 91. The patient and nurse denies any active GI bleeding. The patient reports that he did have a nose bleed when he fell, but denies any melena, hematochezia, or hematemesis. He denies any abnormal weight loss, decreased appetite, nausea, vomiting, reflux, heartburn, abdominal pain, bowel changes, or any other GI symptoms. Of note, he also denies any known history of liver disease, cirrhosis, or hepatitis- although there is mention of liver cirrhosis and portal hypertension in the EMR. He also denies any hx of GI bleeding, although there is mention of PUD in the chart. He drinks 12 beers per day. He denies any hx of pancreatitis. He is a poor historian. (Lena Gabriel) PFSH Past Medical History HTN ETOH abuse Liver cirrhosis- pt denies any known hx of this, but it is in past records Portal hypertensin Ascites Memory loss Left ear acoustic neuroma OA Depression GERD PUD according to EMR, pt denies any known hx of this. Past Surgical History Left ear acoustic neuroma resection Gastric bypass Cholecystectomy Tonsillectomy (Lena Gabriel) Coded Allergies: Ativan (Verified Allergy, Severe, AGITATION, 08/07/16) Celebrex (Verified Allergy, Severe, Swelling, 08/07/16) Medications Allergies Coded Allergies Type Severity Reaction Last Updated Verified Ativan Allergy Severe AGITATION 08/07/16 Yes Celebrex Allergy Severe Swelling 08/07/16 Yes Active Scripts Medications Dose Route/Sig Days Date Category Lortab (Hydrocodone-Acetaminophen) 7.5-325 Mg Tab 1 Tab PO Q4H PRN 08/06/16 Rx [Depression] 1 Tab PO DIRECTED 08/06/16 Reported [Eye Steroid] 1 Drop LEFT EYE DIRECTED 08/06/16 Reported Clonidine (Clonidine HCl) 0.2 Mg Tab 0.2 Mg PO BID 08/06/16 Reported Family History Mother from brain cancer Father from CAD/[place]. Social History Smokes 1-1.5 PPD since he was 28 Drinks 12 beers per day. (Lena Gabriel) Review of Systems Constitutional: COMPLAINS OF: Fatigue, Weight gain, DENIES: Weight loss, Change in appetite Respiratory: DENIES: Cough, Shortness of breath Cardiovascular: DENIES: Chest pain Gastrointestinal: DENIES: Abdominal pain, Black stools, Bloody stools, Constipation, Diarrhea, Nausea, Vomiting, Swelling of Abdomen, Heartburn, Hematemesis Musculoskeletal: COMPLAINS OF: Muscle aches, DENIES: Joint pain Hematologic/lymphatic: COMPLAINS OF: Bruising Neurologic: DENIES: Headache Psychiatric: DENIES: Confusion (Lena Gabriel) GI Exam Vitals I&O Vital Signs Date Time Temp Pulse Resp B/P Pulse Ox O2 Delivery O2 Flow Rate FiO2 08/09/16 06:58 22 08/09/16 04:00 98.5 90 22 152/88 96 08/09/16 04:00 90 08/09/16 00:00 83 08/09/16 00:00 98.4 83 20 145/67 97 08/08/16 20:00 98.2 86 22 143/82 96 08/08/16 20:00 86 08/08/16 16:00 98.7 92 20 153/82 94 08/08/16 15:00 90 08/08/16 14:58 20 08/08/16 12:00 98.0 95 22 138/70 96 I/O 08/08/16 08/08/16 08/08/16 08/09/16 08/09/16 08/09/16 07:00 15:00 23:00 07:00 15:00 23:00 Intake Total 1520 ml 652 ml 487 ml Output Total 700 ml 600 ml Balance 1520 ml -48 ml -113 ml Intake Oral 520 ml 0 ml 0 ml IV Total 1000 ml 402 ml 487 ml Packed Cells 250 ml Output Urine Total 700 ml 600 ml # Voids 2 # Bowel Movements 0 0 0 Imaging Last Impressions Upper Extremity Ultrasound 08/08/16 0000 Signed Impressions: Service Date/Time: Monday, August 08, 2016 10:34 - CONCLUSION: Soft tissue swelling. Otherwise negative without DVT. Kishor Kim MD Laboratory Test 08/08/16 08/08/16 08/08/16 08/09/16 09:24 09:50 18:25 04:02 Blood Type B POSITIVE B POSITIVE Crossmatch Leukocyte-Reduced Red Blood Cells Blood Bank Comment White Blood Count 5.1 TH/MM3 Red Blood Count 2.56 MIL/MM3 Hemoglobin 8.7 GM/DL Hematocrit 25.4 % Mean Corpuscular Volume 99.3 FL Mean Corpuscular Hemoglobin 34.1 PG Mean Corpuscular Hemoglobin 34.4 % Concent Red Cell Distribution Width 22.5 % Platelet Count 34 TH/MM3 Mean Platelet Volume 8.5 FL Neutrophils (%) (Auto) 81.7 % Lymphocytes (%) (Auto) 9.0 % Monocytes (%) (Auto) 7.9 % Eosinophils (%) (Auto) 0.8 % Basophils (%) (Auto) 0.6 % Neutrophils # (Auto) 4.2 TH/MM3 Lymphocytes # (Auto) 0.5 TH/MM3 Monocytes # (Auto) 0.4 TH/MM3 Eosinophils # (Auto) 0.0 TH/MM3 Basophils # (Auto) 0.0 TH/MM3 CBC Comment AUTO DIFF Differential Total Cells 100 Counted Neutrophils % (Manual) 85 % Band Neutrophils % 9 % Lymphocytes % 3 % Monocytes % 3 % Neutrophils # (Manual) 4.8 TH/MM3 Differential Comment FINAL DIFF MANUAL Platelet Estimate LOW Platelet Morphology Comment NORMAL Polychromasia 2.0 % Target Cells 1+ Prothrombin Time 21.8 SEC Prothromb Time International 1.9 RATIO Ratio Activated Partial 49.9 SEC Thromboplast Time Fibrinogen 91 mg/dL Sodium Level 124 MEQ/L Potassium Level 3.9 MEQ/L Chloride Level 93 MEQ/L Carbon Dioxide Level 23.9 MEQ/L Anion Gap 7 MEQ/L Blood Urea Nitrogen 8 MG/DL Creatinine 0.60 MG/DL Estimat Glomerular Filtration 141 ML/MIN Rate Random Glucose 140 MG/DL Calcium Level 6.9 MG/DL Protein Corrected Calcium 7.0 MG/DL Iron Level 140 MCG/DL Total Iron Binding Capacity 200 MCG/DL Percent Iron Saturation 69.9 % Ferritin 183 NG/ML Total Bilirubin 9.8 MG/DL Aspartate Amino Transf 249 U/L (AST/SGOT) Alanine Aminotransferase 55 U/L (ALT/SGPT) Alkaline Phosphatase 103 U/L Total Protein 6.9 GM/DL Albumin 1.8 GM/DL Vitamin B12 Level 5267 PG/ML Folate 5.7 NG/ML Physical Examination HEENT: Ecchymosis CHEST: CTA CARDIAC: RRR ABDOMEN: Soft, rounded, nondistended, nontender; hepatosplenomegaly; bowel sounds are present in all four quadrants. EXTREMITIES: Significant edema and ecchymosis to RUE- although not tender, good pulse, no numbness/tingling, BLE edema SKIN: Significant bruising- especially to face and RUE. 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 (Lena Gabriel) Assessment and Plan Plan ASSESSMENT: - Anemia. 8.7/25.4. No obvious active GI bleeding. Pt reports significant nose bleed when he originally fell, but denies any hematemesis, melena, or hematochezia. The nurse denies any obvious active bleeding. He is on Protonix Gtt and has significant coagulopathy/thrombocytopenia. Of note, CT on 08/06 mentioned probable right flank hematoma and he has significant ecchymosis to RUE. S/P 2 units of PRBC. Of note, has hx of gastric bypass. - Thrombocytopenia, Coagulopathy. Plt 34, PT 21.8, INR 1.9, APTT 49.9, Fibrinogen 91. S/P 1 unit Plt. - Elevated LFTs, Alcoholic Hepatitis on underlying liver cirrhosis. T. Bili 9.8 , AST 249, ALT 55, Alk Phosph 103. DF 54.880. MELD 17. - Elevated Lipase. Lipase 1314- no n/v, abdominal pain with this. No evidence of pancreatitis on CT scan on 08/06. - RUE Edema/Ecchymosis. S/P CVT eval. No compartment syndrome. - Probable right flank hematoma. CT 08/06 probable 2.6 cm hematoma - GERD. PPI - Multiple electrolyte abnormalities. Na+ 124, PCC 7.0 per primary - HTN, MAHENDRA, Depression. per primary - ETOH abuse. Librium per patient. PLAN: - Plan for EGD in am - Obtain consents - Change protonix to 40mg IV BID - Add Pentoxifylline - Consider repeat CT scan if worsening anemia to f/u on hematoma - Monitor labs - Supportive care - Further recommendations to follow based on results of above - Pt seen and examined by Dr. Collins and myself and this note is written on his behalf (Lena Gabriel) Physician Comments seen, examined agree with above egd when more stable (Bisi Collins MD) Lena Gabriel Aug 09, 2016 09:17 Bisi Collins MD Aug 09, 2016 18:21
[2016-08-09] MEDS: PANTOPRAZOLE SODIUM 40 MG VIAL IV PUSH SCH ×2 (09:30→21:21)
[2016-08-09] MEDS ORDERED: SODIUM CHLOR 0.9% 250 ML INJ 250 ML IV ONE (09:30)
[2016-08-09] MEDS: DEXT 5%-NACL 0.9% 1000 ML INJ 1,000 ML IV SCH (09:57)
[2016-08-09] MEDS: MORPHINE SULFATE 4 MG/ML INJ IV PUSH PRN ×2 (12:09→22:34)
--- NOTE | 2016-08-09 12:34 | PD.ONC.PN ---
Subjective Subjective Remarks Afebrile overnight. No bleeding today. Patient resting comfortably without complaint. Objective Data Date Time Temp Pulse Resp B/P Pulse Ox O2 Delivery O2 Flow Rate FiO2 08/09/16 09:40 98.0 90 20 139/67 96 08/09/16 08:00 98.7 90 22 164/91 96 08/09/16 08:00 90 08/09/16 06:58 22 08/09/16 04:00 98.5 90 22 152/88 96 08/09/16 04:00 90 08/09/16 00:00 83 08/09/16 00:00 98.4 83 20 145/67 97 08/08/16 20:00 98.2 86 22 143/82 96 08/08/16 20:00 86 08/08/16 16:00 98.7 92 20 153/82 94 08/08/16 15:00 90 08/08/16 14:58 20 08/09/16 08/09/16 08/09/16 07:00 15:00 23:00 Intake Total 487 ml Output Total 600 ml Balance -113 ml Result Diagram: 08/09/16 0402 08/09/16 0402 Laboratory Results Laboratory Tests Test 08/08/16 08/09/16 18:25 04:02 Blood Bank Comment White Blood Count 5.1 TH/MM3 Red Blood Count 2.56 MIL/MM3 Hemoglobin 8.7 GM/DL Hematocrit 25.4 % Mean Corpuscular Volume 99.3 FL Mean Corpuscular Hemoglobin 34.1 PG Mean Corpuscular Hemoglobin 34.4 % Concent Red Cell Distribution Width 22.5 % Platelet Count 34 TH/MM3 Mean Platelet Volume 8.5 FL Neutrophils (%) (Auto) 81.7 % Lymphocytes (%) (Auto) 9.0 % Monocytes (%) (Auto) 7.9 % Eosinophils (%) (Auto) 0.8 % Basophils (%) (Auto) 0.6 % Neutrophils # (Auto) 4.2 TH/MM3 Lymphocytes # (Auto) 0.5 TH/MM3 Monocytes # (Auto) 0.4 TH/MM3 Eosinophils # (Auto) 0.0 TH/MM3 Basophils # (Auto) 0.0 TH/MM3 CBC Comment AUTO DIFF Differential Total Cells 100 Counted Neutrophils % (Manual) 85 % Band Neutrophils % 9 % Lymphocytes % 3 % Monocytes % 3 % Neutrophils # (Manual) 4.8 TH/MM3 Differential Comment FINAL DIFF MANUAL Platelet Estimate LOW Platelet Morphology Comment NORMAL Polychromasia 2.0 % Target Cells 1+ Prothrombin Time 21.8 SEC Prothromb Time International 1.9 RATIO Ratio Activated Partial 49.9 SEC Thromboplast Time Fibrinogen 91 mg/dL Sodium Level 124 MEQ/L Potassium Level 3.9 MEQ/L Chloride Level 93 MEQ/L Carbon Dioxide Level 23.9 MEQ/L Anion Gap 7 MEQ/L Blood Urea Nitrogen 8 MG/DL Creatinine 0.60 MG/DL Estimat Glomerular Filtration 141 ML/MIN Rate Random Glucose 140 MG/DL Calcium Level 6.9 MG/DL Protein Corrected Calcium 7.0 MG/DL Iron Level 140 MCG/DL Total Iron Binding Capacity 200 MCG/DL Percent Iron Saturation 69.9 % Ferritin 183 NG/ML Total Bilirubin 9.8 MG/DL Aspartate Amino Transf 249 U/L (AST/SGOT) Alanine Aminotransferase 55 U/L (ALT/SGPT) Alkaline Phosphatase 103 U/L Total Protein 6.9 GM/DL Albumin 1.8 GM/DL Vitamin B12 Level 5267 PG/ML Folate 5.7 NG/ML Administered Medications Medications (Trade) Dose Ordered Sig/Ivan Route PRN Reason Start Time Stop Time Status Last Admin Dose Admin Sodium Chloride (NS Flush) 2 ml BID IV FLUSH 08/08/16 09:00 08/09/16 09:00 Haloperidol Lactate 2 mg 2 mg Q15M PRN IM SEE LABEL COMMENTS 08/07/16 22:45 08/08/16 23:18 Multivitamins 10 ml/Folic Acid 1 mg/Sodium Chloride 510.2 ml @ 125 mls/hr Q24H IV 08/08/16 01:00 08/12/16 00:59 08/09/16 02:48 Thiamine HCl 100 mg/Sodium Chloride 101 ml @ 100 mls/hr Q24H IV 08/08/16 01:00 08/10/16 00:59 08/09/16 02:48 Dextrose/Sodium Chloride (D5W-NS 1000 ml Inj) 1,000 ml @ 70 mls/hr [id number] IV 08/07/16 23:00 08/09/16 09:57 Clonidine (Catapres) 0.2 mg BID PO 08/08/16 09:00 08/09/16 09:00 Acetaminophen/ Hydrocodone Bitart ([place] 7.5-325 Mg) 1 tab Q4H PRN PO PAIN 08/08/16 09:00 08/09/16 05:58 Folic Acid (Folate) 1 mg DAILY PO 08/09/16 09:00 08/09/16 09:00 Thiamine HCl (Vitamin B1) 100 mg DAILY PO 08/09/16 09:00 08/09/16 09:00 Chlordiazepoxide (Librium) 25 mg TID PO 08/08/16 13:00 08/09/16 12:08 Morphine Sulfate 2 mg 2 mg Q6H PRN IV PUSH PAIN 1-10 08/08/16 14:30 08/09/16 12:09 Sodium Chloride (NS 250 ml Inj) 250 ml @ 15 mls/hr ONCE ONCE IV 08/09/16 09:30 08/10/16 02:09 08/09/16 09:30 Pantoprazole Sodium (Protonix Inj) 40 mg Q12H IV PUSH 08/09/16 09:30 08/09/16 09:30 Objective Remarks GENERAL: Middle aged male, sitting up in bed in [place] SKIN: Warm and dry. scattered bruises on all extremities HEAD: Normocephalic. EYES: No injection or drainage. NECK: Supple, trachea midline. CARDIOVASCULAR: Regular rate and rhythm RESPIRATORY: Breath sounds equal bilaterally. No accessory muscle use. GASTROINTESTINAL: Abdomen soft, non-tender, nondistended. EXTREMITIES: No cyanosis. RUE with extensive edema. fingertips warm and well perfused. NEUROLOGICAL: No obvious focal deficit. Awake, alert, and oriented x3. Assessment/Plan Problem List: (1) Thrombocytopenia Status: Acute Plan: --is acute on chronic. --underlying thrombocytopenia due to cirrhosis and splenomegaly. (2) Anemia Status: Acute Plan: --multifactorial from bleeding and bone marrow suppression due to alcohol. --can also have vitamin deficiency given his history of gastric bypass surgery. (3) Coagulopathy Status: Acute Plan: -- due to liver disease from alcohol use. --give cryo 1 unit today. monitor coags. --s/p vitamin K and FFP Assessment 50y/o male admitted to [facility] [place]. Hematology consulted for thrombocytopenia and anemia. history of alcohol abuse and cirrhosis with portal hypertension Gastric bypass surgery, cholecystectomy. Plan 1. give 1 unit cryo this evening (patient still receiving 2 units FFP This morning) 2. monitor CBC, coags 3. monitor for bleeding Attending Statement The exam, history, and the medical decision-making described in the above note were completed with the assistance of the mid-level provider. I reviewed and agree with the findings presented. I attest that I had a [id number] encounter with the patient on the same day, and personally performed and documented my assessment and findings in the medical record. No bleeding reported. Left arm edema slightly improved. Ecchymosis stable. Fibrinogen is low possibly due to liver disease and consumptive process. Give cryoprecipitate 1 Unit. No active bleeding. Hgb trended up with transfusion. Platelet also trending up slightly. Continue to monitor CBC and coags. Radha Wright Aug 09, 2016 12:34 Ronni Casarez MD Aug 09, 2016 17:17
[2016-08-09] MEDS: PENTOXIFYLLINE 400 MG CONTROLLED RELEASE TAB PO SCH ×2 (14:00→23:06)
[2016-08-09] MEDS: HALOPERIDOL LACTATE 5 MG/ML AMP IM PRN ×3 (14:40→22:37)
--- NOTE | 2016-08-09 15:10 | PD.CAR.PN ---
CVT Progress Note Subjective/Hospital Course: 08/08/2016 Patient who fell drunk sustained the along noted injuries and had a question of compartment syndrome of the right arm his gentleman does not have a compartment syndrome, but merely bruising and injury to the arm with soft tissue edema and bleeding. Considering that platelet count is around 20 to 30,000 and his INR is over 2 i.e. being fully anticoagulated despite the fact ge is not on Coumadin puts him on ADILENE 4 criteria category in addition to ascites and liver failure, elevated ammonia and bilirubin. With this MELD score, this patient's survival is less than one year average just by natural history of the disease. At this point, he does not require any surgical therapy. 08/09/16 Patient remains in the medical ICU with major metabolic derangements consistent with a child's 4 criteria of terminal liver failure and developing hepatorenal syndrome, hyponatremia hypocoagulable state etc.. Patient at this point has no surgical condition that needs to be addressed from a vascular point Arm is swollen however soft with excellent distal pulses and no appreciable neurologic deficit Again patient does not have compartment syndrome Objective: Vital Signs Date Time Temp Pulse Resp B/P Pulse Ox O2 Delivery O2 Flow Rate FiO2 08/09/16 12:14 18 08/09/16 09:40 98.0 90 20 139/67 96 08/09/16 08:00 98.7 90 22 164/91 96 08/09/16 08:00 90 08/09/16 06:58 22 08/09/16 04:00 98.5 90 22 152/88 96 08/09/16 04:00 90 08/09/16 00:00 83 08/09/16 00:00 98.4 83 20 145/67 97 08/08/16 20:00 98.2 86 22 143/82 96 08/08/16 20:00 86 08/08/16 16:00 98.7 92 20 153/82 94 Labs: Laboratory Tests Test 08/09/16 04:02 White Blood Count 5.1 TH/MM3 (4.0-11.0) Red Blood Count 2.56 MIL/MM3 (4.50-5.90) Hemoglobin 8.7 GM/DL (13.0-17.0) Hematocrit 25.4 % (39.0-51.0) Mean Corpuscular Volume 99.3 FL (80.0-100.0) Mean Corpuscular Hemoglobin 34.1 PG (27.0-34.0) Mean Corpuscular Hemoglobin 34.4 % Concent (32.0-36.0) Red Cell Distribution Width 22.5 % (11.6-17.2) Platelet Count 34 TH/MM3 (150-450) Mean Platelet Volume 8.5 FL (7.0-11.0) Neutrophils (%) (Auto) 81.7 % (16.0-70.0) Lymphocytes (%) (Auto) 9.0 % (9.0-44.0) Monocytes (%) (Auto) 7.9 % (0.0-8.0) Eosinophils (%) (Auto) 0.8 % (0.0-4.0) Basophils (%) (Auto) 0.6 % (0.0-2.0) Neutrophils # (Auto) 4.2 TH/MM3 (1.8-7.7) Lymphocytes # (Auto) 0.5 TH/MM3 (1.0-4.8) Monocytes # (Auto) 0.4 TH/MM3 (0-0.9) Eosinophils # (Auto) 0.0 TH/MM3 (0-0.4) Basophils # (Auto) 0.0 TH/MM3 (0-0.2) CBC Comment AUTO DIFF Differential Total Cells 100 Counted Neutrophils % (Manual) 85 % (16-70) Band Neutrophils % 9 % (0-6) Lymphocytes % 3 % (9-44) Monocytes % 3 % (0-8) Neutrophils # (Manual) 4.8 TH/MM3 (1.8-7.7) Differential Comment FINAL DIFF MANUAL Platelet Estimate LOW (NORMAL) Platelet Morphology Comment NORMAL (NORMAL) Polychromasia 2.0 % (0.0-1.9) Target Cells 1+ (NORMAL) Prothrombin Time 21.8 SEC (9.8-11.6) Prothromb Time International 1.9 RATIO Ratio Activated Partial 49.9 SEC Thromboplast Time (24.3-30.1) Fibrinogen 91 mg/dL (181-393) Sodium Level 124 MEQ/L (136-145) Potassium Level 3.9 MEQ/L (3.5-5.1) Chloride Level 93 MEQ/L (98-107) Carbon Dioxide Level 23.9 MEQ/L (21.0-32.0) Anion Gap 7 MEQ/L (5-15) Blood Urea Nitrogen 8 MG/DL (7-18) Creatinine 0.60 MG/DL (0.60-1.30) Estimat Glomerular Filtration 141 ML/MIN Rate (>89) Random Glucose 140 MG/DL (74-106) Calcium Level 6.9 MG/DL (8.5-10.1) Protein Corrected Calcium 7.0 MG/DL (8.5-10.1) Iron Level 140 MCG/DL (65-175) Total Iron Binding Capacity 200 MCG/DL (250-450) Percent Iron Saturation 69.9 % (20-50) Ferritin 183 NG/ML (26-388) Total Bilirubin 9.8 MG/DL (0.2-1.0) Aspartate Amino Transf 249 U/L (15-37) (AST/SGOT) Alanine Aminotransferase 55 U/L (12-78) (ALT/SGPT) Alkaline Phosphatase 103 U/L (45-117) Total Protein 6.9 GM/DL (6.4-8.2) Albumin 1.8 GM/DL (3.4-5.0) Vitamin B12 Level 5267 PG/ML (193-986) Folate 5.7 NG/ML (3.1-17.5) Result Diagram: 08/09/16 0402 08/09/16 0402 Khloe Neumann MD Aug 09, 2016 15:10
[2016-08-10] VITALS (12 sets, daily range): BP systolic 133–183; BP diastolic 66–103; PULSE 69–105; RESP 16–28; TEMP 98–98.2; O2SAT 96–100
[2016-08-10] MEDS: HALOPERIDOL LACTATE 5 MG/ML AMP IM PRN ×4 (00:08→16:01)
[2016-08-10] MEDS: DEXT 5%-NACL 0.9% 1000 ML INJ 1,000 ML IV SCH ×2 (00:10→14:33)
[2016-08-10] MEDS: MULTIVITAMIN INJ 10 ML, FOLIC ACID INJ 1 MG in SODIUM CHLORID 0.9% 500 ML INJ 500 ML IV SCH (00:15)
[2016-08-10] MEDS: PENTOXIFYLLINE 400 MG CONTROLLED RELEASE TAB PO SCH ×3 (06:00→21:07)
[2016-08-10 06:41] LABS: AUTOMATED NEUTROPHIL # 2.9 TH/MM3 (1.8-7.7); BASOPHIL % 0.7 % (0.0-2.0); EOSINOPHIL % 0.6 % (0.0-4.0); LYMPH % 13.4 % (9.0-44.0); LYMPHOCYTE # 0.5 TH/MM3 (1.0-4.8); MEAN CELL VOLUME 99.6 FL (80.0-100.0); MEAN CORPUSCULAR HEMOGLOBIN 35.5 PG (27.0-34.0); MEAN CORPUSCULAR HGB CONC 35.6 % (32.0-36.0); MONO % 10.9 % (0.0-8.0); NEUT % 74.4 % (16.0-70.0); PLATELET COUNT 43 TH/MM3 (150-450); RED BLOOD COUNT 2.31 MIL/MM3 (4.50-5.90); RED CELL DISTRIBUTION WIDTH 23.4 % (11.6-17.2); WHITE BLOOD COUNT 3.9 TH/MM3 (4.0-11.0)
[2016-08-10 06:51] LABS: APTT (PATIENT) 39.6 SEC (24.3-30.1); INTERNATIONAL NORMALIZED RATIO 1.8 RATIO; PROTHROMBIN TIME - PATIENT 19.9 SEC (9.8-11.6)
[2016-08-10 07:02] LABS: HEMO FLAGS AUTO DIFF
[2016-08-10 07:07] LABS: BICARBONATE 24.9 MEQ/L (21.0-32.0); TOTAL BILIRUBIN ADULT 11.4 MG/DL (0.2-1.0)
[2016-08-10 07:52] LABS: BANDS 6 % (0-6); NEUTROPHIL # MANUAL DIFF 3.5 TH/MM3 (1.8-7.7); POLYS (SEG NEUTROPHILS) 85 % (16-70); WBC DIFF SAMPLE 100
[2016-08-10 07:53] LABS: PLATELET ESTIMATE SMEAR LOW (NORMAL); PLATELET MORPHOLOGY NORMAL (NORMAL); SCAN/DIFF FINAL DIFF MANUAL
[2016-08-10] MEDS ORDERED: PHYTONADIONE 10 MG/ML VIAL SQ ONE (08:15)
[2016-08-10] MEDS: SODIUM CHLORIDE 0.9% FLUSH 10 ML FLUSH IV FLUSH SCH ×2 (09:00→21:09)
[2016-08-10] MEDS: cloNIDine HCL 0.2 MG TAB PO SCH ×2 (09:00→21:07)
[2016-08-10] MEDS: THIAMINE HCL 100 MG TAB PO SCH (09:00)
[2016-08-10] MEDS: PANTOPRAZOLE SODIUM 40 MG VIAL IV PUSH SCH ×2 (09:14→21:07)
[2016-08-10] MEDS: MORPHINE SULFATE 4 MG/ML INJ IV PUSH PRN ×3 (09:14→21:09)
[2016-08-10] MEDS: chlordiazePOXIDE 25 MG CAP PO SCH ×4 (09:15→21:07)
[2016-08-10] MEDS: FOLIC ACID 1 MG TAB PO SCH (09:15)
--- NOTE | 2016-08-10 10:09 | HHI.PR ---
Subjective History of Present Illness Patient agitated on restraints in DT on librium will increase does and also thiamine and folic acid. 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 Integumentary Skin Remarks Multiple right arm and chest Bruises Vitals/Results Intake & Output 08/09/16 08/09/16 08/10/16 15:00 23:00 07:00 Intake Total 1738 ml 500 ml Output Total 1500 ml 850 ml Balance 238 ml -350 ml Intake Oral 440 ml 300 ml IV Total 1298 ml 200 ml Output Urine Total 1500 ml 850 ml # Bowel Movements 0 0 Vital Signs Vital Signs Date Time Temp Pulse Resp B/P Pulse Ox O2 Delivery O2 Flow Rate FiO2 08/10/16 08:00 98.0 105 20 183/83 96 08/10/16 08:00 105 08/10/16 06:00 97 08/10/16 04:00 103 08/10/16 04:00 98.1 103 28 179/103 08/10/16 02:00 101 08/10/16 00:00 100 08/10/16 00:00 98.2 100 20 160/91 96 08/09/16 22:00 93 08/09/16 20:00 98.5 102 22 162/90 95 08/09/16 20:00 102 08/09/16 16:00 97.8 124 20 160/75 96 08/09/16 16:00 97 08/09/16 15:37 20 08/09/16 12:14 18 08/09/16 12:00 109 CBC/BMP: 08/10/16 0555 08/10/16 0555 Lab Results Laboratory Tests Test 08/10/16 05:55 White Blood Count 3.9 TH/MM3 Red Blood Count 2.31 MIL/MM3 Hemoglobin 8.2 GM/DL Hematocrit 23.0 % Mean Corpuscular Volume 99.6 FL Mean Corpuscular Hemoglobin 35.5 PG Mean Corpuscular Hemoglobin 35.6 % Concent Red Cell Distribution Width 23.4 % Platelet Count 43 TH/MM3 Mean Platelet Volume 7.7 FL Neutrophils (%) (Auto) 74.4 % Lymphocytes (%) (Auto) 13.4 % Monocytes (%) (Auto) 10.9 % Eosinophils (%) (Auto) 0.6 % Basophils (%) (Auto) 0.7 % Neutrophils # (Auto) 2.9 TH/MM3 Lymphocytes # (Auto) 0.5 TH/MM3 Monocytes # (Auto) 0.4 TH/MM3 Eosinophils # (Auto) 0.0 TH/MM3 Basophils # (Auto) 0.0 TH/MM3 CBC Comment AUTO DIFF Differential Total Cells 100 Counted Neutrophils % (Manual) 85 % Band Neutrophils % 6 % Lymphocytes % 5 % Monocytes % 4 % Neutrophils # (Manual) 3.5 TH/MM3 Differential Comment FINAL DIFF MANUAL Platelet Estimate LOW Platelet Morphology Comment NORMAL Prothrombin Time 19.9 SEC Prothromb Time International 1.8 RATIO Ratio Activated Partial 39.6 SEC Thromboplast Time Fibrinogen 137 mg/dL Sodium Level 130 MEQ/L Potassium Level 3.0 MEQ/L Chloride Level 96 MEQ/L Carbon Dioxide Level 24.9 MEQ/L Anion Gap 9 MEQ/L Blood Urea Nitrogen 5 MG/DL Creatinine 0.58 MG/DL Estimat Glomerular Filtration 147 ML/MIN Rate Random Glucose 132 MG/DL Calcium Level 6.9 MG/DL Protein Corrected Calcium 7.0 MG/DL Total Bilirubin 11.4 MG/DL Aspartate Amino Transf 228 U/L (AST/SGOT) Alanine Aminotransferase 53 U/L (ALT/SGPT) Alkaline Phosphatase 98 U/L Total Protein 7.0 GM/DL Albumin 2.0 GM/DL Lipase 646 U/L Physical Exam General General Appearance: No Acute Distress, Comfortable Eyes Eye Exam: Pupils Equal, Pupils Reactive, Sclera White, Extraocular Movement Intact Throat Throat Exam: Oral Mucosa [place] & Moist, Oral Pharynx Normal Neck Neck Exam: Neck Supple, Trachea Midline Pulmonary Resp Exam: Clear Bilaterally, Breath Sounds Equal, No Distress Cardiology CV Exam: Regular, Normal Sinus Rhythm Gastrointestinal/Abdomen GI Exam: Soft, Non-Tender, Bowel Sounds Present Musculoskeletal MS Exam: Normal Tone, Unable to Ambulate MS Remarks swelling and bruises right upper extremity. Integumentary Skin Exam: Warm, Dry Skin Remarks Multiple Bruises right upper extremity and chest. Neurologic Neuro Exam: Alert, Awake, Oriented, Speech Clear, Moving All Extremities, No Focal Deficits Psychiatric Psych Exam: Appropriate Responses VTE Prophylaxis VTE Prophylaxis Device: SCDs PUD Prophylasis PUD Prophylaxis: Protonix Assessment/Plan Assessment/Plan ASSESSMENT/PLAN This is 50-year-old male who came to the ER diagnosed with status post fall secondary to balance problem, secondary to the left acoustic neuroma removed and Alcohol intoxication causing the large bruises. Need to check the right upper extremity frequently for compartment syndrome, Vascular surgery input noted. Keep the right upper extremity elevated and frequently check neurovascular status. Acute anemia secondary to acute bleed in the right upper extremity. We will monitor H&H and give two units packed RBC blood transfusion. Low platelets secondary to alcoholic liver disease. Hematology input noted, s/p platelet transfusion. Hyponatremia. The patient is on normal saline. We will monitor, improving. Hypocalcemia. The patient is status post calcium gluconate. High LFTs secondary to alcoholic liver disease. GI input noted. Further recommendation per GI. High lipase. The patient denies any abdominal pain. Alcohol abuse/Intoxication. The patient's alcohol level is 258. The patient advised to stop drinking alcohol. The patient is on DT prophylaxis, thiamine, folic acid and Librium.. Coagulopathy, INR 2.1, secondary to alcohol liver disease. Generalized weakness secondary to multiple factor as dictated above. History of left acoustic neuroma status post removal, the patient has a balance problem because of that. DVT prophylaxis, SCD's. GI prophylaxis, Protonix. Poor prognosis with advance liver disease. We are going to manage the patient on a daily basis and make recommendations on a daily basis. Ramiro Perez MD Aug 10, 2016 10:09
[2016-08-10] MEDS ORDERED: ICU - POTASSIUM PHOSPHATE MONOBASIC 500 MG TAB PO PRN (10:45)
[2016-08-10] MEDS ORDERED: ICU - D/C ICU ELECTROLYTE ORDERS PRN (10:45)
[2016-08-10] MEDS ORDERED: POTASSIUM CHLORIDE 25 MEQ EFFERVESCENT TAB PO PRN (10:45)
[2016-08-10] MEDS ORDERED: ICU - SODIUM PHOSPHATE 30 MMOL/NS 250 ML IV PRN ×2 (10:45)
[2016-08-10] MEDS ORDERED: ICU - MAGNESIUM OXIDE 400 MG TAB PO PRN (10:45)
[2016-08-10] MEDS ORDERED: ICU - CALL ORDERING PHYSICIAN PRN (10:45)
[2016-08-10] MEDS ORDERED: ICU - POTASSIUM PHOSPHATE 30 MMOL/NS 250 ML IV PRN ×2 (10:45)
[2016-08-10] MEDS ORDERED: ICU - MAGNESIUM SULFATE 4 GM/NS 100 ML IV PRN ×2 (10:45)
[2016-08-10] MEDS ORDERED: ICU - MAGNESIUM SULFATE 2 GM/NS 100 ML IV PRN ×2 (10:45)
[2016-08-10] MEDS ORDERED: ICU - POTASSIUM CHLORIDE/AQUEOUS SOLN 20 MEQ/100 ML IVPB IV PRN (10:45)
[2016-08-10] MEDS ORDERED: ICU - POTASSIUM CHLORIDE/AQUEOUS SOLN 40 MEQ/100 ML IVPB IV PRN (10:45)
[2016-08-10] MEDS: POTASSIUM CHLOR 20 MEQ PREMIX 100 ML IV SCH ×3 (11:00→14:33)
--- NOTE | 2016-08-10 13:30 | PD.ONC.PN ---
Subjective Subjective Remarks Afebrile overnight. Patient resting comfortably. No bleeding. Objective Data Date Time Temp Pulse Resp B/P Pulse Ox O2 Delivery O2 Flow Rate FiO2 08/10/16 12:00 98.0 73 20 142/69 96 08/10/16 12:00 73 08/10/16 10:00 105 08/10/16 08:00 98.0 105 20 183/83 96 08/10/16 08:00 105 08/10/16 06:00 97 08/10/16 04:00 103 08/10/16 04:00 98.1 103 28 179/103 08/10/16 02:00 101 08/10/16 00:00 100 08/10/16 00:00 98.2 100 20 160/91 96 08/09/16 22:00 93 08/09/16 20:00 98.5 102 22 162/90 95 08/09/16 20:00 102 08/09/16 16:00 97.8 124 20 160/75 96 08/09/16 16:00 97 08/09/16 15:37 20 08/10/16 08/10/16 08/10/16 07:00 15:00 23:00 Intake Total 500 ml Output Total 850 ml Balance -350 ml Result Diagram: 08/10/16 0555 08/10/16 0555 Laboratory Results Laboratory Tests Test 08/10/16 05:55 White Blood Count 3.9 TH/MM3 Red Blood Count 2.31 MIL/MM3 Hemoglobin 8.2 GM/DL Hematocrit 23.0 % Mean Corpuscular Volume 99.6 FL Mean Corpuscular Hemoglobin 35.5 PG Mean Corpuscular Hemoglobin 35.6 % Concent Red Cell Distribution Width 23.4 % Platelet Count 43 TH/MM3 Mean Platelet Volume 7.7 FL Neutrophils (%) (Auto) 74.4 % Lymphocytes (%) (Auto) 13.4 % Monocytes (%) (Auto) 10.9 % Eosinophils (%) (Auto) 0.6 % Basophils (%) (Auto) 0.7 % Neutrophils # (Auto) 2.9 TH/MM3 Lymphocytes # (Auto) 0.5 TH/MM3 Monocytes # (Auto) 0.4 TH/MM3 Eosinophils # (Auto) 0.0 TH/MM3 Basophils # (Auto) 0.0 TH/MM3 CBC Comment AUTO DIFF Differential Total Cells 100 Counted Neutrophils % (Manual) 85 % Band Neutrophils % 6 % Lymphocytes % 5 % Monocytes % 4 % Neutrophils # (Manual) 3.5 TH/MM3 Differential Comment FINAL DIFF MANUAL Platelet Estimate LOW Platelet Morphology Comment NORMAL Prothrombin Time 19.9 SEC Prothromb Time International 1.8 RATIO Ratio Activated Partial 39.6 SEC Thromboplast Time Fibrinogen 137 mg/dL Sodium Level 130 MEQ/L Potassium Level 3.0 MEQ/L Chloride Level 96 MEQ/L Carbon Dioxide Level 24.9 MEQ/L Anion Gap 9 MEQ/L Blood Urea Nitrogen 5 MG/DL Creatinine 0.58 MG/DL Estimat Glomerular Filtration 147 ML/MIN Rate Random Glucose 132 MG/DL Calcium Level 6.9 MG/DL Protein Corrected Calcium 7.0 MG/DL Total Bilirubin 11.4 MG/DL Aspartate Amino Transf 228 U/L (AST/SGOT) Alanine Aminotransferase 53 U/L (ALT/SGPT) Alkaline Phosphatase 98 U/L Total Protein 7.0 GM/DL Albumin 2.0 GM/DL Lipase 646 U/L Administered Medications Medications (Trade) Dose Ordered Sig/Ivan Route PRN Reason Start Time Stop Time Status Last Admin Dose Admin Sodium Chloride (NS Flush) 2 ml BID IV FLUSH 08/08/16 09:00 08/10/16 09:00 Haloperidol Lactate 2 mg 2 mg Q15M PRN IM SEE LABEL COMMENTS 08/07/16 22:45 08/10/16 12:41 Multivitamins 10 ml/Folic Acid 1 mg/Sodium Chloride 510.2 ml @ 125 mls/hr Q24H IV 08/08/16 01:00 08/12/16 00:59 08/10/16 00:15 Dextrose/Sodium Chloride (D5W-NS 1000 ml Inj) 1,000 ml @ 70 mls/hr [id number] IV 08/07/16 23:00 08/10/16 00:10 Clonidine (Catapres) 0.2 mg BID PO 08/08/16 09:00 08/10/16 09:00 Acetaminophen/ Hydrocodone Bitart ([place] 7.5-325 Mg) 1 tab Q4H PRN PO PAIN 08/08/16 09:00 08/09/16 14:41 Folic Acid (Folate) 1 mg DAILY PO 08/09/16 09:00 08/10/16 09:15 Thiamine HCl (Vitamin B1) 100 mg DAILY PO 08/09/16 09:00 08/10/16 09:00 Morphine Sulfate (Morphine Inj) 2 mg Q6H PRN IV PUSH PAIN 1-10 08/08/16 14:30 08/10/16 12:43 Pantoprazole Sodium (Protonix Inj) 40 mg Q12H IV PUSH 08/09/16 09:30 08/10/16 09:14 Pentoxifylline (TRENtal SR) 400 mg Q8HR PO 08/09/16 14:00 08/10/16 12:41 Chlordiazepoxide 50 mg 50 mg QID PO 08/10/16 13:00 08/10/16 12:41 Potassium Chloride (KCl 20 Meq Premix Inj) 100 ml @ 50 mls/hr Q2H IV 08/10/16 11:00 08/10/16 16:59 08/10/16 12:40 Objective Remarks GENERAL: Chronically ill male, sitting up in bed in [facility]. SKIN: Warm and dry. scattered bruises on all extremities HEAD: Normocephalic. EYES: No injection or drainage. NECK: Supple, trachea midline. CARDIOVASCULAR: Regular rate and rhythm RESPIRATORY: Breath sounds equal bilaterally. No accessory muscle use. GASTROINTESTINAL: Abdomen soft, non-tender, nondistended. EXTREMITIES: No cyanosis. RUE with with ecchymoses and edema. NEUROLOGICAL: awake and alert, normal speech. Assessment/Plan Problem List: (1) Thrombocytopenia Status: Acute Plan: --is acute on chronic. --underlying thrombocytopenia due to cirrhosis and splenomegaly. (2) Anemia Status: Acute Plan: --multifactorial from bleeding and bone marrow suppression due to alcohol. --can also have vitamin deficiency given his history of gastric bypass surgery. (3) Coagulopathy Status: Acute Plan: -- due to liver disease from alcohol use. -s/p cryo and FFP Assessment 50y/o male admitted to [facility]. Hematology consulted for thrombocytopenia and anemia. history of alcohol abuse and cirrhosis with portal hypertension Gastric bypass surgery, cholecystectomy. Plan 1. monitor CBC, coags 2. give Vitamin K 5mg SQ x 1 today 3. monitor for bleeding Attending Statement The exam, history, and the medical decision-making described in the above note were completed with the assistance of the mid-level provider. I reviewed and agree with the findings presented. I attest that I had a [id number] encounter with the patient on the same day, and personally performed and documented my assessment and findings in the medical record.Slightly confused. RUE ecchymosis stable. Hgb stable. Coags improved slightly with cryoprecipitate. Fibrinogen trended up. Will give more vit K. Continue to monitor CBC and coags. Radha Wright Aug 10, 2016 13:30 Ronni Casarez MD Aug 10, 2016 16:34
--- NOTE | 2016-08-10 15:45 | HHI.GIFU ---
Subjective Remarks Resting in bed. Confused, restless at times. No active bleeding. Denies n/v/ abdominal pain. (Lena Gabriel) Objective Vitals I&O Vital Signs Date Time Temp Pulse Resp B/P Pulse Ox O2 Delivery O2 Flow Rate FiO2 08/10/16 14:00 73 08/10/16 12:00 98.0 73 20 142/69 96 08/10/16 12:00 73 08/10/16 10:00 105 08/10/16 08:00 98.0 105 20 183/83 96 08/10/16 08:00 105 08/10/16 06:00 97 08/10/16 04:00 103 08/10/16 04:00 98.1 103 28 179/103 08/10/16 02:00 101 08/10/16 00:00 100 08/10/16 00:00 98.2 100 20 160/91 96 08/09/16 22:00 93 08/09/16 20:00 98.5 102 22 162/90 95 08/09/16 20:00 102 08/09/16 16:00 97.8 124 20 160/75 96 08/09/16 16:00 97 I/O 08/09/16 08/09/16 08/09/16 08/10/16 08/10/16 08/10/16 07:00 15:00 23:00 07:00 15:00 23:00 Intake Total 487 ml 1738 ml 500 ml 770 ml Output Total 600 ml 1500 ml 850 ml 975 ml Balance -113 ml 238 ml -350 ml -205 ml Intake Oral 0 ml 440 ml 300 ml 320 ml IV Total 487 ml 1298 ml 200 ml 450 ml Output Urine Total 600 ml 1500 ml 850 ml 975 ml # Bowel Movements 0 0 0 Laboratory Laboratory Tests Test 08/10/16 05:55 White Blood Count 3.9 Red Blood Count 2.31 Hemoglobin 8.2 Hematocrit 23.0 Mean Corpuscular Volume 99.6 Mean Corpuscular Hemoglobin 35.5 Mean Corpuscular Hemoglobin 35.6 Concent Red Cell Distribution Width 23.4 Platelet Count 43 Mean Platelet Volume 7.7 Neutrophils (%) (Auto) 74.4 Lymphocytes (%) (Auto) 13.4 Monocytes (%) (Auto) 10.9 Eosinophils (%) (Auto) 0.6 Basophils (%) (Auto) 0.7 Neutrophils # (Auto) 2.9 Lymphocytes # (Auto) 0.5 Monocytes # (Auto) 0.4 Eosinophils # (Auto) 0.0 Basophils # (Auto) 0.0 CBC Comment AUTO DIFF Differential Total Cells 100 Counted Neutrophils % (Manual) 85 Band Neutrophils % 6 Lymphocytes % 5 Monocytes % 4 Neutrophils # (Manual) 3.5 Differential Comment FINAL DIFF MANUAL Platelet Estimate LOW Platelet Morphology Comment NORMAL Prothrombin Time 19.9 Prothromb Time International 1.8 Ratio Activated Partial 39.6 Thromboplast Time Fibrinogen 137 Sodium Level 130 Potassium Level 3.0 Chloride Level 96 Carbon Dioxide Level 24.9 Anion Gap 9 Blood Urea Nitrogen 5 Creatinine 0.58 Estimat Glomerular Filtration 147 Rate Random Glucose 132 Calcium Level 6.9 Protein Corrected Calcium 7.0 Total Bilirubin 11.4 Aspartate Amino Transf 228 (AST/SGOT) Alanine Aminotransferase 53 (ALT/SGPT) Alkaline Phosphatase 98 Total Protein 7.0 Albumin 2.0 Lipase 646 Imaging Last Impressions Upper Extremity Ultrasound 08/08/16 0000 Signed Impressions: Service Date/Time: Monday, August 08, 2016 10:34 - CONCLUSION: Soft tissue swelling. Otherwise negative without DVT. Kishor Kim MD Physical Exam HEENT: Multiple ecchymotic areas to face, more on left side. CHEST: CTA CARDIAC: RRR ABDOMEN: Soft, nondistended, nontender; hepatosplenomegaly; bowel sounds are present in all four quadrants. EXTREMITIES: Significant edema and ecchymosis to RUE- although not tender, good pulse, no numbness/tingling, BLE edema SKIN: Significant bruising- especially to face and RUE. 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 (Lena Gabriel) Assessment and Plan Plan ASSESSMENT: - Anemia. No obvious active GI bleeding. Pt reports significant nose bleed when he originally fell, but denies any hematemesis, melena, or hematochezia. The nurse denies any obvious active bleeding. Of note, CT on 08/06 mentioned probable right flank hematoma and he has significant ecchymosis to RUE. S/P 2 units of PRBC. Of note, has hx of gastric bypass. HH stable 8.2/23.0. Will plan for EGD once condition improves. If significant drop in Hgb, consider repeat CT to evaluate hematoma. - Thrombocytopenia, Coagulopathy. Plt 43, PT 19.9, INR 1.8, APTT 39.6, Fibrinogen 137. S/P 2 units FFP, 2 units of Plt 2 units, 1 unit cryoprecipitate. - Elevated LFTs, Alcoholic Hepatitis on underlying liver cirrhosis. T. Bili 11.4, AST 228, ALT 53, Alk Phosph 98 DF 54.880. MELD 17. Pentoxifylline - Elevated Lipase. No n/v, abdominal pain with this. No evidence of pancreatitis on CT scan on 08/06. Lipase improved. - AMS, likely combination of hepatic encephalopathy and DTs. Ammonia 79. Start Xifaxan/Lactulose. - RUE Edema/Ecchymosis. S/P CVT eval. No compartment syndrome. - Probable right flank hematoma. CT 08/06 probable 2.6 cm hematoma - GERD. PPI - Multiple electrolyte abnormalities. K+ 3.0, Na+ 130, PCC 7.0 per primary - HTN, MAHENDRA, Depression. per primary - ETOH abuse. Librium per patient. PLAN: - Full liquids - Add Xifaxan - Add Lactulose - Cont. PPI - Cont. Pentoxifylline - Monitor labs - Consider EGD when more stable - Consider repeat CT scan if worsening anemia to f/u on hematoma - Further recommendations to follow based on results of above - Pt seen and examined by Dr. Collins and myself and this note is written on his behalf (Lena Gabriel) Physician Comments agree with above (Bisi Collins MD) Lena Gabriel Aug 10, 2016 15:45 Bisi Collins MD Aug 10, 2016 18:14
[2016-08-10] MEDS: ACETAMINOPHEN/HYDROcodone 325 MG/7.5 MG TAB PO PRN (16:02)
[2016-08-10] MEDS: cloNIDine HCL 0.1 MG TAB PO PRN (16:02)
[2016-08-10] MEDS: LACTULOSE SYRUP 20 GM/30 ML CUP PO SCH (18:00)
[2016-08-10] MEDS: RIFAXIMIN 550 MG TAB PO SCH (21:07)
[2016-08-11] VITALS (12 sets, daily range): BP systolic 117–206; BP diastolic 57–89; PULSE 63–96; RESP 16–20; TEMP 97.4–98.4; O2SAT 96–100
[2016-08-11] MEDS: MULTIVITAMIN INJ 10 ML, FOLIC ACID INJ 1 MG in SODIUM CHLORID 0.9% 500 ML INJ 500 ML IV SCH (01:15)
[2016-08-11] MEDS: DEXT 5%-NACL 0.9% 1000 ML INJ 1,000 ML IV SCH ×2 (04:51→19:09)
[2016-08-11 05:20] LABS: AUTOMATED NEUTROPHIL # 2.7 TH/MM3 (1.8-7.7); BASOPHIL # 0.1 TH/MM3 (0-0.2); BASOPHIL % 1.4 % (0.0-2.0); EOSINOPHIL # 0.1 TH/MM3 (0-0.4); EOSINOPHIL % 1.4 % (0.0-4.0); LYMPH % 21.5 % (9.0-44.0); LYMPHOCYTE # 0.9 TH/MM3 (1.0-4.8); MEAN CORPUSCULAR HEMOGLOBIN 35.8 PG (27.0-34.0); MEAN CORPUSCULAR HGB CONC 35.1 % (32.0-36.0); MONO % 11.8 % (0.0-8.0); NEUT % 63.9 % (16.0-70.0); PLATELET COUNT 43 TH/MM3 (150-450); RED BLOOD COUNT 2.35 MIL/MM3 (4.50-5.90); RED CELL DISTRIBUTION WIDTH 24.1 % (11.6-17.2); WHITE BLOOD COUNT 4.3 TH/MM3 (4.0-11.0)
[2016-08-11 05:23] LABS: HEMO FLAGS AUTO DIFF
[2016-08-11 05:47] LABS: BICARBONATE 25.4 MEQ/L (21.0-32.0); POTASSIUM 3.4 MEQ/L (3.5-5.1); TOTAL BILIRUBIN ADULT 10.2 MG/DL (0.2-1.0)
[2016-08-11] MEDS: PENTOXIFYLLINE 400 MG CONTROLLED RELEASE TAB PO SCH ×3 (06:07→21:14)
[2016-08-11 07:26] LABS: BANDS 12 % (0-6); BASOPHILS 1 % (0-2); EOSINOPHILS 1 % (0-4); NEUTROPHIL # MANUAL DIFF 3.6 TH/MM3 (1.8-7.7); PLATELET ESTIMATE SMEAR LOW (NORMAL); PLATELET MORPHOLOGY NORMAL (NORMAL); POLYS (SEG NEUTROPHILS) 72 % (16-70); SCAN/DIFF FINAL DIFF MANUAL; WBC DIFF SAMPLE 100
[2016-08-11] MEDS: RIFAXIMIN 550 MG TAB PO SCH ×2 (08:03→21:13)
[2016-08-11] MEDS: FOLIC ACID 1 MG TAB PO SCH (08:03)
[2016-08-11] MEDS: cloNIDine HCL 0.2 MG TAB PO SCH ×2 (08:03→21:13)
[2016-08-11] MEDS: THIAMINE HCL 100 MG TAB PO SCH (08:03)
[2016-08-11] MEDS: MORPHINE SULFATE 4 MG/ML INJ IV PUSH PRN (08:03)
[2016-08-11] MEDS: chlordiazePOXIDE 25 MG CAP PO SCH ×4 (08:03→21:13)
[2016-08-11] MEDS: LACTULOSE SYRUP 20 GM/30 ML CUP PO SCH ×4 (08:04→21:13)
[2016-08-11] MEDS: PANTOPRAZOLE SODIUM 40 MG VIAL IV PUSH SCH ×2 (08:04→21:13)
--- NOTE | 2016-08-11 08:42 | HHI.PR ---
Subjective History of Present Illness Patient agitated on restraints in DT on librium and also thiamine and folic acid. 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 sodium better. Review of Systems Constitutional Constitutional: Fatigue, Weakness GI/Abdomen GI/Abdomen Remarks Jaundice, Abdominal distention. Integumentary Skin Remarks Multiple right arm and chest Bruises Vitals/Results Intake & Output 08/10/16 08/10/16 08/11/16 15:00 23:00 07:00 Intake Total 770 ml 686 ml 624 ml Output Total 975 ml 400 ml 150 ml Balance -205 ml 286 ml 474 ml Intake Oral 320 ml 100 ml IV Total 450 ml 586 ml 624 ml Output Urine Total 975 ml 400 ml 150 ml # Bowel Movements 0 0 Vital Signs Vital Signs Date Time Temp Pulse Resp B/P Pulse Ox O2 Delivery O2 Flow Rate FiO2 08/11/16 08:00 98.0 89 16 187/82 99 08/11/16 08:00 72 08/11/16 06:00 85 08/11/16 04:00 97.7 63 16 117/58 99 08/11/16 04:00 63 08/11/16 02:00 65 08/11/16 00:00 70 08/11/16 00:00 97.4 70 16 132/64 100 08/10/16 22:00 72 08/10/16 20:00 72 08/10/16 20:00 98.2 72 16 133/66 100 08/10/16 18:00 70 08/10/16 16:00 70 08/10/16 16:00 98.0 69 20 167/75 96 08/10/16 14:00 73 08/10/16 12:00 98.0 73 20 142/69 96 08/10/16 12:00 73 08/10/16 10:00 105 CBC/BMP: 08/11/16 0503 08/11/16 0503 Lab Results Laboratory Tests Test 08/10/16 08/11/16 21:27 05:03 Potassium Level 3.9 MEQ/L 3.4 MEQ/L White Blood Count 4.3 TH/MM3 Red Blood Count 2.35 MIL/MM3 Hemoglobin 8.4 GM/DL Hematocrit 24.0 % Mean Corpuscular Volume 102.0 FL Mean Corpuscular Hemoglobin 35.8 PG Mean Corpuscular Hemoglobin 35.1 % Concent Red Cell Distribution Width 24.1 % Platelet Count 43 TH/MM3 Mean Platelet Volume 8.1 FL Neutrophils (%) (Auto) 63.9 % Lymphocytes (%) (Auto) 21.5 % Monocytes (%) (Auto) 11.8 % Eosinophils (%) (Auto) 1.4 % Basophils (%) (Auto) 1.4 % Neutrophils # (Auto) 2.7 TH/MM3 Lymphocytes # (Auto) 0.9 TH/MM3 Monocytes # (Auto) 0.5 TH/MM3 Eosinophils # (Auto) 0.1 TH/MM3 Basophils # (Auto) 0.1 TH/MM3 CBC Comment AUTO DIFF Differential Total Cells 100 Counted Neutrophils % (Manual) 72 % Band Neutrophils % 12 % Lymphocytes % 8 % Monocytes % 6 % Eosinophils % 1 % Basophils % 1 % Neutrophils # (Manual) 3.6 TH/MM3 Differential Comment FINAL DIFF MANUAL Platelet Estimate LOW Platelet Morphology Comment NORMAL Sodium Level 131 MEQ/L Chloride Level 98 MEQ/L Carbon Dioxide Level 25.4 MEQ/L Anion Gap 8 MEQ/L Blood Urea Nitrogen 7 MG/DL Creatinine 0.77 MG/DL Estimat Glomerular Filtration 106 ML/MIN Rate Random Glucose 120 MG/DL Calcium Level 6.7 MG/DL Protein Corrected Calcium 7.0 MG/DL Total Bilirubin 10.2 MG/DL Aspartate Amino Transf 183 U/L (AST/SGOT) Alanine Aminotransferase 48 U/L (ALT/SGPT) Alkaline Phosphatase 91 U/L Ammonia 78 MCMOL/L Total Protein 6.6 GM/DL Albumin 1.7 GM/DL Physical Exam General General Appearance: No Acute Distress, Comfortable Eyes Eye Exam: Pupils Equal, Pupils Reactive, Sclera White, Extraocular Movement Intact Throat Throat Exam: Oral Mucosa [place] & Moist, Oral Pharynx Normal Neck Neck Exam: Neck Supple, Trachea Midline Pulmonary Resp Exam: Clear Bilaterally, Breath Sounds Equal, No Distress Cardiology CV Exam: Regular, Normal Sinus Rhythm Gastrointestinal/Abdomen GI Exam: Soft, Non-Tender, Bowel Sounds Present Musculoskeletal MS Exam: Normal Tone, Unable to Ambulate MS Remarks swelling and bruises right upper extremity. Integumentary Skin Exam: Warm, Dry Skin Remarks Multiple Bruises right upper extremity and chest. Neurologic Neuro Exam: Alert, Awake, Moving All Extremities, Combative Neuro Remarks confused. Psychiatric Psych Exam: Appropriate Responses VTE Prophylaxis VTE Prophylaxis Device: SCDs PUD Prophylasis PUD Prophylaxis: Protonix Assessment/Plan Assessment/Plan ASSESSMENT/PLAN This is 50-year-old male who came to the ER diagnosed with status post fall secondary to balance problem, secondary to the left acoustic neuroma removed and Alcohol intoxication causing the large bruises. Need to check the right upper extremity frequently for compartment syndrome, Vascular surgery input noted. Keep the right upper extremity elevated and frequently check neurovascular status. Acute anemia secondary to acute bleed in the right upper extremity. We will monitor H&H and give two units packed RBC blood transfusion. Low platelets secondary to alcoholic liver disease. Hematology input noted, s/p platelet transfusion. Hyponatremia. The patient is on normal saline. We will monitor, improving. Hypocalcemia. The patient is status post calcium gluconate. High LFTs secondary to alcoholic liver disease. GI input noted. Further recommendation per GI. High lipase. The patient denies any abdominal pain. Alcohol abuse/Intoxication. The patient's alcohol level is 258. The patient advised to stop drinking alcohol. The patient is on DT prophylaxis, thiamine, folic acid and Librium.. Coagulopathy, INR 1.9, secondary to alcohol liver disease. Generalized weakness secondary to multiple factor as dictated above. History of left acoustic neuroma status post removal, the patient has a balance problem DVT prophylaxis, SCD's. GI prophylaxis, Protonix. Altered mental status hepatic encephalopathy ( Ammonia level 78 ) and DT Poor prognosis with advance liver disease. We are going to manage the patient on a daily basis and make recommendations on a daily basis. Ramiro Perez MD Aug 11, 2016 08:42
[2016-08-11] MEDS: SODIUM CHLORIDE 0.9% FLUSH 10 ML FLUSH IV FLUSH SCH ×2 (09:00→21:00)
--- NOTE | 2016-08-11 10:37 | HHI.GIFU ---
Subjective Remarks Pt resting in bed. Lethargic, no distress. Confused. No active bleeding. ( Lena Gabriel) Objective Vitals I&O Vital Signs Date Time Temp Pulse Resp B/P Pulse Ox O2 Delivery O2 Flow Rate FiO2 08/11/16 08:00 98.0 89 16 187/82 99 08/11/16 08:00 72 08/11/16 06:00 85 08/11/16 04:00 97.7 63 16 117/58 99 08/11/16 04:00 63 08/11/16 02:00 65 08/11/16 00:00 70 08/11/16 00:00 97.4 70 16 132/64 100 08/10/16 22:00 72 08/10/16 20:00 72 08/10/16 20:00 98.2 72 16 133/66 100 08/10/16 18:00 70 08/10/16 16:00 70 08/10/16 16:00 98.0 69 20 167/75 96 08/10/16 14:00 73 08/10/16 12:00 98.0 73 20 142/69 96 08/10/16 12:00 73 I/O 08/10/16 08/10/16 08/10/16 08/11/16 08/11/16 08/11/16 07:00 15:00 23:00 07:00 15:00 23:00 Intake Total 500 ml 770 ml 686 ml 624 ml Output Total 850 ml 975 ml 400 ml 150 ml Balance -350 ml -205 ml 286 ml 474 ml Intake Oral 300 ml 320 ml 100 ml IV Total 200 ml 450 ml 586 ml 624 ml Output Urine Total 850 ml 975 ml 400 ml 150 ml # Bowel Movements 0 0 0 Laboratory Laboratory Tests Test 08/10/16 08/11/16 21:27 05:03 Potassium Level 3.9 3.4 White Blood Count 4.3 Red Blood Count 2.35 Hemoglobin 8.4 Hematocrit 24.0 Mean Corpuscular Volume 102.0 Mean Corpuscular Hemoglobin 35.8 Mean Corpuscular Hemoglobin 35.1 Concent Red Cell Distribution Width 24.1 Platelet Count 43 Mean Platelet Volume 8.1 Neutrophils (%) (Auto) 63.9 Lymphocytes (%) (Auto) 21.5 Monocytes (%) (Auto) 11.8 Eosinophils (%) (Auto) 1.4 Basophils (%) (Auto) 1.4 Neutrophils # (Auto) 2.7 Lymphocytes # (Auto) 0.9 Monocytes # (Auto) 0.5 Eosinophils # (Auto) 0.1 Basophils # (Auto) 0.1 CBC Comment AUTO DIFF Differential Total Cells 100 Counted Neutrophils % (Manual) 72 Band Neutrophils % 12 Lymphocytes % 8 Monocytes % 6 Eosinophils % 1 Basophils % 1 Neutrophils # (Manual) 3.6 Differential Comment FINAL DIFF MANUAL Platelet Estimate LOW Platelet Morphology Comment NORMAL Sodium Level 131 Chloride Level 98 Carbon Dioxide Level 25.4 Anion Gap 8 Blood Urea Nitrogen 7 Creatinine 0.77 Estimat Glomerular Filtration 106 Rate Random Glucose 120 Calcium Level 6.7 Protein Corrected Calcium 7.0 Total Bilirubin 10.2 Aspartate Amino Transf 183 (AST/SGOT) Alanine Aminotransferase 48 (ALT/SGPT) Alkaline Phosphatase 91 Ammonia 78 Total Protein 6.6 Albumin 1.7 Imaging Last Impressions Upper Extremity Ultrasound 08/08/16 0000 Signed Impressions: Service Date/Time: Monday, August 08, 2016 10:34 - CONCLUSION: Soft tissue swelling. Otherwise negative without DVT. Kishor Kim MD Physical Exam HEENT: Multiple ecchymotic areas to face, more on left side. CHEST: CTA CARDIAC: RRR ABDOMEN: Soft, nondistended, nontender; hepatosplenomegaly; bowel sounds are present in all four quadrants. EXTREMITIES: Significant edema and ecchymosis to RUE- although not tender, good pulse, no numbness/tingling, BLE edema SKIN: Significant bruising- especially to face and RUE. 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 No obvious active GI bleeding. Pt reports significant nose bleed when he originally fell, but denies any hematemesis, melena, or hematochezia. The nurse denies any obvious active bleeding. Of note, CT on 08/06 mentioned probable right flank hematoma and he has significant ecchymosis to RUE. S/P 2 units of PRBC. Of note, has hx of gastric bypass. HH stable 8.4/24.0. Will plan for EGD once condition improves. If significant drop in Hgb, consider repeat CT to evaluate hematoma. No obvious active GI bleeding. - Thrombocytopenia, Coagulopathy. Yesterday, Plt 43, PT 19.9, INR 1.8, APTT 39.6, Fibrinogen 137. S/P 2 units FFP, 2 units of Plt 2 units, 1 unit cryoprecipitate. - Elevated LFTs, Alcoholic Hepatitis on underlying liver cirrhosis. T. Bili 10.2, AST 183, ALT 48, Alk Phosph 91 DF 54.880. MELD 17. Pentoxifylline - Elevated Lipase. No n/v, abdominal pain with this. No evidence of pancreatitis on CT scan on 08/06. Lipase improved. - AMS, likely combination of hepatic encephalopathy and DTs. Ammonia 78. Xifaxan/Lactulose- increase lactulose to QID. - GERD. PPI - RUE Edema/Ecchymosis. S/P CVT eval. No compartment syndrome. - Probable right flank hematoma. CT 08/06 probable 2.6 cm hematoma - Multiple electrolyte abnormalities. K+ 3.4, Na+ 131, PCC 7.0 per primary - HTN, MAHENDRA, Depression. per primary - ETOH abuse. Librium per patient. PLAN: - Low salt diet - Cont. Xifaxan - Increase Lactulose to QID - Cont. PPI - Cont. Pentoxifylline - Monitor labs - Consider EGD when more stable - Consider repeat CT scan if worsening anemia to f/u on hematoma - Further recommendations to follow based on results of above - Pt seen and examined by Dr. Collins and myself and this note is written on his behalf (Lena Gabriel) Physician Comments agree with above (Bisi Collins MD) Lena Gabriel Aug 11, 2016 10:37 Bisi Collins MD Aug 11, 2016 17:44
--- NOTE | 2016-08-11 13:09 | PD.ONC.PN ---
Subjective Subjective Remarks Afebrile overnight. patient resting in bed. No reported bleeding per nurse. Objective Data Date Time Temp Pulse Resp B/P Pulse Ox O2 Delivery O2 Flow Rate FiO2 08/11/16 08:00 98.0 89 16 187/82 99 08/11/16 08:00 72 08/11/16 06:00 85 08/11/16 04:00 97.7 63 16 117/58 99 08/11/16 04:00 63 08/11/16 02:00 65 08/11/16 00:00 70 08/11/16 00:00 97.4 70 16 132/64 100 08/10/16 22:00 72 08/10/16 20:00 72 08/10/16 20:00 98.2 72 16 133/66 100 08/10/16 18:00 70 08/10/16 16:00 70 08/10/16 16:00 98.0 69 20 167/75 96 08/10/16 14:00 73 08/11/16 08/11/16 08/11/16 07:00 15:00 23:00 Intake Total 624 ml Output Total 150 ml Balance 474 ml Result Diagram: 08/11/16 0503 08/11/16 0503 Laboratory Results Laboratory Tests Test 08/10/16 08/11/16 21:27 05:03 Potassium Level 3.9 MEQ/L 3.4 MEQ/L White Blood Count 4.3 TH/MM3 Red Blood Count 2.35 MIL/MM3 Hemoglobin 8.4 GM/DL Hematocrit 24.0 % Mean Corpuscular Volume 102.0 FL Mean Corpuscular Hemoglobin 35.8 PG Mean Corpuscular Hemoglobin 35.1 % Concent Red Cell Distribution Width 24.1 % Platelet Count 43 TH/MM3 Mean Platelet Volume 8.1 FL Neutrophils (%) (Auto) 63.9 % Lymphocytes (%) (Auto) 21.5 % Monocytes (%) (Auto) 11.8 % Eosinophils (%) (Auto) 1.4 % Basophils (%) (Auto) 1.4 % Neutrophils # (Auto) 2.7 TH/MM3 Lymphocytes # (Auto) 0.9 TH/MM3 Monocytes # (Auto) 0.5 TH/MM3 Eosinophils # (Auto) 0.1 TH/MM3 Basophils # (Auto) 0.1 TH/MM3 CBC Comment AUTO DIFF Differential Total Cells 100 Counted Neutrophils % (Manual) 72 % Band Neutrophils % 12 % Lymphocytes % 8 % Monocytes % 6 % Eosinophils % 1 % Basophils % 1 % Neutrophils # (Manual) 3.6 TH/MM3 Differential Comment FINAL DIFF MANUAL Platelet Estimate LOW Platelet Morphology Comment NORMAL Sodium Level 131 MEQ/L Chloride Level 98 MEQ/L Carbon Dioxide Level 25.4 MEQ/L Anion Gap 8 MEQ/L Blood Urea Nitrogen 7 MG/DL Creatinine 0.77 MG/DL Estimat Glomerular Filtration 106 ML/MIN Rate Random Glucose 120 MG/DL Calcium Level 6.7 MG/DL Protein Corrected Calcium 7.0 MG/DL Total Bilirubin 10.2 MG/DL Aspartate Amino Transf 183 U/L (AST/SGOT) Alanine Aminotransferase 48 U/L (ALT/SGPT) Alkaline Phosphatase 91 U/L Ammonia 78 MCMOL/L Total Protein 6.6 GM/DL Albumin 1.7 GM/DL Administered Medications Medications (Trade) Dose Ordered Sig/Ivan Route PRN Reason Start Time Stop Time Status Last Admin Dose Admin Sodium Chloride (NS Flush) 2 ml BID IV FLUSH 08/08/16 09:00 08/10/16 21:09 Haloperidol Lactate 2 mg 2 mg Q15M PRN IM SEE LABEL COMMENTS 08/07/16 22:45 08/10/16 16:01 Multivitamins/ Folic Acid/Sodium Chloride (Mvi-12 Inj/ Folvite Inj/NS 500 ml Inj) 510.2 ml @ 125 mls/hr Q24H IV 08/08/16 01:00 08/12/16 00:59 08/11/16 01:15 Clonidine 0.1 mg 0.1 mg Q6H PRN PO SEE LABEL COMMENTS 08/07/16 22:45 08/10/16 16:02 Dextrose/Sodium Chloride (D5W-NS 1000 ml Inj) 1,000 ml @ 70 mls/hr [id number] IV 08/07/16 23:00 08/11/16 04:51 Clonidine (Catapres) 0.2 mg BID PO 08/08/16 09:00 08/11/16 08:03 Acetaminophen/ Hydrocodone Bitart ([place] 7.5-325 Mg) 1 tab Q4H PRN PO PAIN 08/08/16 09:00 08/10/16 16:02 Folic Acid (Folate) 1 mg DAILY PO 08/09/16 09:00 08/11/16 08:03 Thiamine HCl (Vitamin B1) 100 mg DAILY PO 08/09/16 09:00 08/11/16 08:03 Morphine Sulfate (Morphine Inj) 2 mg Q6H PRN IV PUSH PAIN 1-10 08/08/16 14:30 08/11/16 08:03 Pantoprazole Sodium (Protonix Inj) 40 mg Q12H IV PUSH 08/09/16 09:30 08/11/16 08:04 Pentoxifylline (TRENtal SR) 400 mg Q8HR PO 08/09/16 14:00 08/11/16 06:07 Chlordiazepoxide (Librium) 50 mg QID PO 08/10/16 13:00 08/11/16 08:03 Potassium Bicarb/ Potassium Chloride (K-Lyte Cl Eff) 50 meq UNSCH PRN PO ELECTROLYTE REPLACEMENT 08/10/16 10:45 08/11/16 06:07 Rifaximin (Xifaxan) 550 mg BID PO 08/10/16 21:00 08/11/16 08:03 Objective Remarks GENERAL: Chronically ill male, lying supine in bed SKIN: Warm and dry. HEAD: Normocephalic. EYES: No injection or drainage. NECK: Supple, trachea midline. CARDIOVASCULAR: Regular rate and rhythm RESPIRATORY: Breath sounds equal bilaterally. No accessory muscle use. GASTROINTESTINAL: Abdomen soft, non-tender, nondistended. EXTREMITIES: No cyanosis. RUE edematous with bruising. extremities warm and well perfused. Assessment/Plan Problem List: (1) Thrombocytopenia Status: Acute Plan: --is acute on chronic. --underlying thrombocytopenia due to cirrhosis and splenomegaly. (2) Anemia Status: Acute Plan: --multifactorial from bleeding and bone marrow suppression due to alcohol. --can also have vitamin deficiency given his history of gastric bypass surgery. (3) Coagulopathy Status: Acute Plan: -- due to liver disease from alcohol use. -s/p cryo and FFP Assessment 50y/o male admitted to [facility] [place]. Hematology consulted for thrombocytopenia and anemia. history of alcohol abuse and cirrhosis with portal hypertension Gastric bypass surgery, cholecystectomy. Plan 1. monitor CBC 2. check coags today 3. monitor for bleeding. Attending Statement The exam, history, and the medical decision-making described in the above note were completed with the assistance of the mid-level provider. I reviewed and agree with the findings presented. I attest that I had a [id number] encounter with the patient on the same day, and personally performed and documented my assessment and findings in the medical record. No bleeding reported. Hgb stable. RUE ecchymosis stable. Fibrinogen still low. Monitor CBC/coags. Tranasfuse cryoprecipitate if fibrinogen is below 100 or if any sign of bleeding. Radha Wright Aug 11, 2016 13:09 Ronni Casarez MD Aug 11, 2016 16:56
[2016-08-11 13:16] LABS: APTT (PATIENT) 44.3 SEC (24.3-30.1); INTERNATIONAL NORMALIZED RATIO 1.9 RATIO
[2016-08-11] MEDS ORDERED: CALCIUM GLUCONATE INJ 1 GM in SODIUM CHLORIDE 0.9% INJ 100 ML IV ONE (18:00)
[2016-08-11] MEDS: ACETAMINOPHEN/HYDROcodone 325 MG/7.5 MG TAB PO PRN (21:14)
[2016-08-12] VITALS (12 sets, daily range): BP systolic 138–163; BP diastolic 64–76; PULSE 64–91; RESP 18–20; TEMP 97.8–98.9; O2SAT 97–100
[2016-08-12] MEDS: MORPHINE SULFATE 4 MG/ML INJ IV PUSH PRN ×2 (01:01→10:15)
[2016-08-12] MEDS: cloNIDine HCL 0.1 MG TAB PO PRN (01:01)
[2016-08-12] MEDS: ACETAMINOPHEN/HYDROcodone 325 MG/7.5 MG TAB PO PRN (03:41)
[2016-08-12 05:22] LABS: AUTOMATED NEUTROPHIL # 3.5 TH/MM3 (1.8-7.7); BASOPHIL # 0.1 TH/MM3 (0-0.2); BASOPHIL % 1.1 % (0.0-2.0); EOSINOPHIL # 0.1 TH/MM3 (0-0.4); EOSINOPHIL % 1.3 % (0.0-4.0); HEMATOCRIT 23.1 % (39.0-51.0); LYMPH % 17.8 % (9.0-44.0); LYMPHOCYTE # 0.9 TH/MM3 (1.0-4.8); MEAN CELL VOLUME 103.4 FL (80.0-100.0); MEAN CORPUSCULAR HEMOGLOBIN 36.7 PG (27.0-34.0); MEAN CORPUSCULAR HGB CONC 35.5 % (32.0-36.0); MONO % 12.8 % (0.0-8.0); PLATELET COUNT 43 TH/MM3 (150-450); RED BLOOD COUNT 2.23 MIL/MM3 (4.50-5.90); RED CELL DISTRIBUTION WIDTH 23.6 % (11.6-17.2); WHITE BLOOD COUNT 5.3 TH/MM3 (4.0-11.0)
[2016-08-12 05:30] LABS: HEMO FLAGS AUTO DIFF
[2016-08-12 05:48] LABS: POTASSIUM 3.6 MEQ/L (3.5-5.1); TOTAL BILIRUBIN ADULT 9.9 MG/DL (0.2-1.0)
[2016-08-12 05:51] LABS: CALCIUM-PROTEIN CORRECTED 7.1 MG/DL (8.5-10.1)
[2016-08-12] MEDS: PENTOXIFYLLINE 400 MG CONTROLLED RELEASE TAB PO SCH ×3 (06:28→23:39)
[2016-08-12] MEDS ORDERED: CALCIUM GLUCONATE INJ 1 GM in SODIUM CHLORIDE 0.9% INJ 100 ML IV ONE (06:30)
[2016-08-12 09:07] LABS: BANDS 16 % (0-6); BASOPHILS 2 % (0-2); EOSINOPHILS 1 % (0-4); METAMYELOCYTES 1 % (0-1); MYELOCYTES 1 % (0-0); NEUTROPHIL # MANUAL DIFF 4.2 TH/MM3 (1.8-7.7); POLYS (SEG NEUTROPHILS) 61 % (16-70); WBC DIFF SAMPLE 100
[2016-08-12 09:08] LABS: PLATELET ESTIMATE SMEAR LOW (NORMAL); PLATELET MORPHOLOGY NORMAL (NORMAL); SCAN/DIFF FINAL DIFF MANUAL
[2016-08-12] MEDS: chlordiazePOXIDE 25 MG CAP PO SCH ×4 (09:47→23:39)
[2016-08-12] MEDS: LACTULOSE SYRUP 20 GM/30 ML CUP PO SCH ×4 (09:47→23:35)
[2016-08-12] MEDS: CALCIUM CARBONATE 500 MG CHEWABLE TAB PO SCH ×2 (09:47→23:41)
[2016-08-12] MEDS: FOLIC ACID 1 MG TAB PO SCH ×2 (09:47→23:37)
[2016-08-12] MEDS: RIFAXIMIN 550 MG TAB PO SCH ×2 (09:47→21:00)
[2016-08-12] MEDS: cloNIDine HCL 0.2 MG TAB PO SCH ×2 (09:47→23:42)
[2016-08-12] MEDS: PANTOPRAZOLE SODIUM 40 MG VIAL IV PUSH SCH ×2 (09:47→23:36)
[2016-08-12] MEDS: THIAMINE HCL 100 MG TAB PO SCH (09:47)
[2016-08-12] MEDS: SODIUM CHLORIDE 0.9% FLUSH 10 ML FLUSH IV FLUSH SCH ×2 (09:48→21:00)
[2016-08-12] MEDS: DEXT 5%-NACL 0.9% 1000 ML INJ 1,000 ML IV SCH ×2 (09:49→18:10)
--- NOTE | 2016-08-12 10:11 | HHI.PR ---
Subjective History of Present Illness Patient agitated on restraints in DT on librium and also thiamine and folic acid. have jaundice right hand swelling better Discussed with BID CLERK no Acute Issue low potassium resolved. Magnasium 1.9 Low sodium better. Review of Systems Constitutional Constitutional: Fatigue, Weakness GI/Abdomen GI/Abdomen Remarks Jaundice, Abdominal distention. Integumentary Skin Remarks Multiple right arm and chest Bruises Vitals/Results Intake & Output 08/11/16 08/11/16 08/12/16 15:00 23:00 07:00 Intake Total 905 ml 943 ml 1094 ml Output Total 250 ml 350 ml 650 ml Balance 655 ml 593 ml 444 ml Intake Oral 280 ml 360 ml 480 ml IV Total 625 ml 583 ml 614 ml Output Urine Total 250 ml 350 ml 650 ml # Bowel Movements 0 0 Vital Signs Vital Signs Date Time Temp Pulse Resp B/P Pulse Ox O2 Delivery O2 Flow Rate FiO2 08/12/16 06:00 67 08/12/16 04:00 98.9 84 18 153/68 99 08/12/16 04:00 84 08/12/16 02:00 68 08/12/16 00:00 98.8 87 20 163/76 98 08/12/16 00:00 91 08/11/16 22:00 67 08/11/16 20:00 98.4 96 20 206/89 96 08/11/16 20:00 94 08/11/16 20:00 Nasal Cannula 2.00 08/11/16 18:00 82 08/11/16 16:00 97.8 91 16 133/72 99 08/11/16 16:00 82 08/11/16 14:00 65 08/11/16 12:00 98.0 64 16 119/57 99 08/11/16 12:00 64 CBC/BMP: 08/12/16 0440 08/12/16 0440 Lab Results Laboratory Tests Test 08/11/16 08/11/16 08/12/16 12:30 18:15 04:40 Prothrombin Time 22.0 SEC Prothromb Time International 1.9 RATIO Ratio Activated Partial 44.3 SEC Thromboplast Time Fibrinogen 123 mg/dL Magnesium Level 1.9 MG/DL White Blood Count 5.3 TH/MM3 Red Blood Count 2.23 MIL/MM3 Hemoglobin 8.2 GM/DL Hematocrit 23.1 % Mean Corpuscular Volume 103.4 FL Mean Corpuscular Hemoglobin 36.7 PG Mean Corpuscular Hemoglobin 35.5 % Concent Red Cell Distribution Width 23.6 % Platelet Count 43 TH/MM3 Mean Platelet Volume 8.5 FL Neutrophils (%) (Auto) 67.0 % Lymphocytes (%) (Auto) 17.8 % Monocytes (%) (Auto) 12.8 % Eosinophils (%) (Auto) 1.3 % Basophils (%) (Auto) 1.1 % Neutrophils # (Auto) 3.5 TH/MM3 Lymphocytes # (Auto) 0.9 TH/MM3 Monocytes # (Auto) 0.7 TH/MM3 Eosinophils # (Auto) 0.1 TH/MM3 Basophils # (Auto) 0.1 TH/MM3 CBC Comment AUTO DIFF Differential Total Cells 100 Counted Neutrophils % (Manual) 61 % Band Neutrophils % 16 % Lymphocytes % 9 % Monocytes % 9 % Eosinophils % 1 % Basophils % 2 % Neutrophils # (Manual) 4.2 TH/MM3 Metamyelocytes 1 % Myelocytes 1 % Differential Comment FINAL DIFF MANUAL Platelet Estimate LOW Platelet Morphology Comment NORMAL Sodium Level 135 MEQ/L Potassium Level 3.6 MEQ/L Chloride Level 103 MEQ/L Carbon Dioxide Level 25.0 MEQ/L Anion Gap 7 MEQ/L Blood Urea Nitrogen 7 MG/DL Creatinine 0.73 MG/DL Estimat Glomerular Filtration 113 ML/MIN Rate Random Glucose 153 MG/DL Calcium Level 6.7 MG/DL Protein Corrected Calcium 7.1 MG/DL Total Bilirubin 9.9 MG/DL Aspartate Amino Transf 158 U/L (AST/SGOT) Alanine Aminotransferase 45 U/L (ALT/SGPT) Alkaline Phosphatase 87 U/L Total Protein 6.4 GM/DL Albumin 1.6 GM/DL Physical Exam General General Appearance: No Acute Distress, Comfortable Eyes Eye Exam: Pupils Equal, Pupils Reactive, Sclera White, Extraocular Movement Intact Throat Throat Exam: Oral Mucosa [place] & Moist, Oral Pharynx Normal Neck Neck Exam: Neck Supple, Trachea Midline Pulmonary Resp Exam: Clear Bilaterally, Breath Sounds Equal, No Distress Cardiology CV Exam: Regular, Normal Sinus Rhythm Gastrointestinal/Abdomen GI Exam: Soft, Non-Tender, Bowel Sounds Present Musculoskeletal MS Exam: Normal Tone, Unable to Ambulate MS Remarks swelling and bruises right upper extremity. Integumentary Skin Exam: Warm, Dry Skin Remarks Multiple Bruises right upper extremity and chest. Neurologic Neuro Exam: Alert, Awake, Moving All Extremities, Combative Neuro Remarks confused. Psychiatric Psych Exam: Appropriate Responses VTE Prophylaxis VTE Prophylaxis Device: SCDs PUD Prophylasis PUD Prophylaxis: Protonix Assessment/Plan Assessment/Plan ASSESSMENT/PLAN This is 50-year-old male who came to the ER diagnosed with status post fall secondary to balance problem, secondary to the left acoustic neuroma removed and Alcohol intoxication causing the large bruises. Need to check the right upper extremity frequently for compartment syndrome, Vascular surgery input noted. Keep the right upper extremity elevated and frequently check neurovascular status. Acute anemia secondary to acute bleed in the right upper extremity. We will monitor H&H and s/p packed RBC blood transfusion. Low platelets secondary to alcoholic liver disease. Hematology input noted, s/p platelet transfusion. Hyponatremia. The patient is on normal saline. We will monitor, improving...better. Hypocalcemia. The patient is status post calcium gluconate. High LFTs secondary to alcoholic liver disease. GI input noted. Further recommendation per GI. High lipase. The patient denies any abdominal pain. Alcohol abuse/Intoxication. The patient's alcohol level was 258. The patient advised to stop drinking alcohol. The patient is on DT prophylaxis, thiamine, folic acid and Librium.. Coagulopathy, INR was 1.9, secondary to alcohol liver disease. Generalized weakness secondary to multiple factor as dictated above. History of left acoustic neuroma status post removal, the patient has a balance problem DVT prophylaxis, SCD's. GI prophylaxis, Protonix. Altered mental status hepatic encephalopathy ( Ammonia level 78 ) and DT Poor prognosis with advance liver disease. Check CBC with diff CMP in AM. We are going to manage the patient on a daily basis and make recommendations on a daily basis. Ramiro Perez MD Aug 12, 2016 10:10
--- NOTE | 2016-08-12 11:52 | PD.ONC.PN ---
Subjective Subjective Remarks Afebrile overnight. Pt resting in bed in no distress. Pt obtunded, attempts to open eyes. Difficult to arouse. Per RN he has had no bleeding. He has been awake intermittently and following commands. Objective Data Date Time Temp Pulse Resp B/P Pulse Ox O2 Delivery O2 Flow Rate FiO2 08/12/16 06:00 67 08/12/16 04:00 98.9 84 18 153/68 99 08/12/16 04:00 84 08/12/16 02:00 68 08/12/16 00:00 98.8 87 20 163/76 98 08/12/16 00:00 91 08/11/16 22:00 67 08/11/16 20:00 98.4 96 20 206/89 96 08/11/16 20:00 94 08/11/16 20:00 Nasal Cannula 2.00 08/11/16 18:00 82 08/11/16 16:00 97.8 91 16 133/72 99 08/11/16 16:00 82 08/11/16 14:00 65 08/11/16 12:00 98.0 64 16 119/57 99 08/11/16 12:00 64 08/12/16 08/12/16 08/12/16 07:00 15:00 23:00 Intake Total 1094 ml Output Total 650 ml Balance 444 ml Result Diagram: 08/12/1643908/12/16439 Laboratory Results Laboratory Tests Test 08/11/16 08/11/16 08/12/16 12:30 18:15 04:40 Prothrombin Time 22.0 SEC Prothromb Time International 1.9 RATIO Ratio Activated Partial 44.3 SEC Thromboplast Time Fibrinogen 123 mg/dL Magnesium Level 1.9 MG/DL White Blood Count 5.3 TH/MM3 Red Blood Count 2.23 MIL/MM3 Hemoglobin 8.2 GM/DL Hematocrit 23.1 % Mean Corpuscular Volume 103.4 FL Mean Corpuscular Hemoglobin 36.7 PG Mean Corpuscular Hemoglobin 35.5 % Concent Red Cell Distribution Width 23.6 % Platelet Count 43 TH/MM3 Mean Platelet Volume 8.5 FL Neutrophils (%) (Auto) 67.0 % Lymphocytes (%) (Auto) 17.8 % Monocytes (%) (Auto) 12.8 % Eosinophils (%) (Auto) 1.3 % Basophils (%) (Auto) 1.1 % Neutrophils # (Auto) 3.5 TH/MM3 Lymphocytes # (Auto) 0.9 TH/MM3 Monocytes # (Auto) 0.7 TH/MM3 Eosinophils # (Auto) 0.1 TH/MM3 Basophils # (Auto) 0.1 TH/MM3 CBC Comment AUTO DIFF Differential Total Cells 100 Counted Neutrophils % (Manual) 61 % Band Neutrophils % 16 % Lymphocytes % 9 % Monocytes % 9 % Eosinophils % 1 % Basophils % 2 % Neutrophils # (Manual) 4.2 TH/MM3 Metamyelocytes 1 % Myelocytes 1 % Differential Comment FINAL DIFF MANUAL Platelet Estimate LOW Platelet Morphology Comment NORMAL Sodium Level 135 MEQ/L Potassium Level 3.6 MEQ/L Chloride Level 103 MEQ/L Carbon Dioxide Level 25.0 MEQ/L Anion Gap 7 MEQ/L Blood Urea Nitrogen 7 MG/DL Creatinine 0.73 MG/DL Estimat Glomerular Filtration 113 ML/MIN Rate Random Glucose 153 MG/DL Calcium Level 6.7 MG/DL Protein Corrected Calcium 7.1 MG/DL Total Bilirubin 9.9 MG/DL Aspartate Amino Transf 158 U/L (AST/SGOT) Alanine Aminotransferase 45 U/L (ALT/SGPT) Alkaline Phosphatase 87 U/L Total Protein 6.4 GM/DL Albumin 1.6 GM/DL Administered Medications Medications (Trade) Dose Ordered Sig/Ivan Route PRN Reason Start Time Stop Time Status Last Admin Dose Admin Sodium Chloride (NS Flush) 2 ml BID IV FLUSH 08/08/16 09:00 08/12/16 09:48 Haloperidol Lactate (Haldol Inj) 2 mg Q15M PRN IM SEE LABEL COMMENTS 08/07/16 22:45 08/10/16 16:01 Clonidine 0.1 mg 0.1 mg Q6H PRN PO SEE LABEL COMMENTS 08/07/16 22:45 08/12/16 01:01 Dextrose/Sodium Chloride (D5W-NS 1000 ml Inj) 1,000 ml @ 70 mls/hr [id number] IV 08/07/16 23:00 08/12/16 09:49 Clonidine (Catapres) 0.2 mg BID PO 08/08/16 09:00 08/12/16 09:47 Acetaminophen/ Hydrocodone Bitart ([place] 7.5-325 Mg) 1 tab Q4H PRN PO PAIN 08/08/16 09:00 08/12/16 03:41 Folic Acid (Folate) 1 mg DAILY PO 08/09/16 09:00 08/12/16 09:47 Thiamine HCl (Vitamin B1) 100 mg DAILY PO 08/09/16 09:00 08/12/16 09:47 Morphine Sulfate (Morphine Inj) 2 mg Q6H PRN IV PUSH PAIN 1-10 08/08/16 14:30 08/12/16 10:15 Pantoprazole Sodium (Protonix Inj) 40 mg Q12H IV PUSH 08/09/16 09:30 08/12/16 09:47 Pentoxifylline (TRENtal SR) 400 mg Q8HR PO 08/09/16 14:00 08/12/16 06:28 Chlordiazepoxide (Librium) 50 mg QID PO 08/10/16 13:00 08/12/16 09:47 Potassium Bicarb/ Potassium Chloride (K-Lyte Cl Eff) 50 meq UNSCH PRN PO ELECTROLYTE REPLACEMENT 08/10/16 10:45 08/11/16 06:07 Rifaximin (Xifaxan) 550 mg BID PO 08/10/16 21:00 08/12/16 09:47 Lactulose (Lactulose Liq) 30 ml QID PO 08/11/16 13:00 08/12/16 09:47 Calcium Carbonate (Tums Chew) 500 mg BID PO 08/12/16 09:00 08/12/16 09:47 Objective Remarks GENERAL: Chronically ill appearing male, lying supine in bed SKIN: Warm and dry. No oozing from lines. Ecchymoses to face. HEAD: Normocephalic. EYES: No injection or drainage. NECK: Supple, trachea midline. CARDIOVASCULAR: Regular rate and rhythm. RESPIRATORY: Breath sounds equal bilaterally. No accessory muscle use. GASTROINTESTINAL: Abdomen soft, non-tender, nondistended. EXTREMITIES: No cyanosis. +Anasarca to BUE. NEURO: Pt obtunded. Follows commands intermittently per RN. Assessment/Plan Problem List: (1) Thrombocytopenia Status: Acute Plan: --is acute on chronic. --underlying thrombocytopenia due to cirrhosis and splenomegaly. (2) Anemia Status: Acute Plan: --multifactorial from bleeding and bone marrow suppression due to alcohol. --can also have vitamin deficiency given his history of gastric bypass surgery. (3) Coagulopathy Status: Acute Plan: -- due to liver disease from alcohol use. -s/p cryo and FFP Assessment 50y/o male admitted to [facility] [place]. Hematology consulted for thrombocytopenia and anemia. history of alcohol abuse and cirrhosis with portal hypertension Gastric bypass surgery, cholecystectomy. Plan 1. Await fibrinogen level. Will transfuse cry if less than 100. 2. Monitor CBC, coags. 3. Supportive care.. Attending Statement The exam, history, and the medical decision-making described in the above note were completed with the assistance of the mid-level provider. I reviewed and agree with the findings presented. I attest that I had a [id number] encounter with the patient on the same day, and personally performed and documented my assessment and findings in the medical record. Pt seen and examined. He presents following a fall while intoxicated with EtOH. Has stigmata of advanced liver failure due to alcohol abuse. When asked how much he had been drinking; he tells me "quite a bit". Hematology was asked to see him for evaluation of cytopenias. The cytopenias are due to a combination of alcohol related myelosuppression with or without concomitant hypersplenism. Recommend continuation of folic acid, thiamine. Consider oral Vit K if his coags become deranged. I told him in no uncertain terms that he must stop drinking if he wishes to live. His survival is will be very limited if he continues to drink heavily. Alejandra Arroyo Aug 12, 2016 11:52 Tushar Love MD Aug 12, 2016 14:54
[2016-08-13] VITALS (8 sets, daily range): BP systolic 126–171; BP diastolic 58–71; PULSE 71–88; RESP 19–22; TEMP 96.1–97.8; O2SAT 95–97
[2016-08-13] MEDS: MORPHINE SULFATE 4 MG/ML INJ IV PUSH PRN (02:36)
[2016-08-13] MEDS: ACETAMINOPHEN/HYDROcodone 325 MG/7.5 MG TAB PO PRN ×2 (05:25→22:43)
[2016-08-13] MEDS: PENTOXIFYLLINE 400 MG CONTROLLED RELEASE TAB PO SCH ×3 (05:25→22:45)
[2016-08-13 07:06] LABS: AUTOMATED NEUTROPHIL # 4.4 TH/MM3 (1.8-7.7); BASOPHIL % 0.6 % (0.0-2.0); EOSINOPHIL % 0.7 % (0.0-4.0); HEMATOCRIT 23.5 % (39.0-51.0); LYMPH % 13.9 % (9.0-44.0); LYMPHOCYTE # 0.8 TH/MM3 (1.0-4.8); MEAN CELL VOLUME 104.9 FL (80.0-100.0); MEAN CORPUSCULAR HEMOGLOBIN 35.5 PG (27.0-34.0); MEAN CORPUSCULAR HGB CONC 33.8 % (32.0-36.0); MONO % 11.4 % (0.0-8.0); NEUT % 73.4 % (16.0-70.0); PLATELET COUNT 28 TH/MM3 (150-450); RED BLOOD COUNT 2.24 MIL/MM3 (4.50-5.90)
[2016-08-13 07:12] LABS: HEMO FLAGS AUTO DIFF
[2016-08-13 07:52] LABS: BICARBONATE 25.2 MEQ/L (21.0-32.0); POTASSIUM 3.6 MEQ/L (3.5-5.1)
[2016-08-13 08:06] LABS: CALCIUM-PROTEIN CORRECTED 7.3 MG/DL (8.5-10.1); TOTAL BILIRUBIN ADULT 9.9 MG/DL (0.2-1.0)
[2016-08-13] MEDS: chlordiazePOXIDE 25 MG CAP PO SCH ×4 (08:37→22:45)
[2016-08-13] MEDS: THIAMINE HCL 100 MG TAB PO SCH (08:37)
[2016-08-13] MEDS: cloNIDine HCL 0.2 MG TAB PO SCH ×2 (08:37→22:44)
[2016-08-13] MEDS: LACTULOSE SYRUP 20 GM/30 ML CUP PO SCH ×4 (08:37→22:44)
[2016-08-13] MEDS: CALCIUM CARBONATE 500 MG CHEWABLE TAB PO SCH ×2 (08:38→22:44)
[2016-08-13] MEDS: SODIUM CHLORIDE 0.9% FLUSH 10 ML FLUSH IV FLUSH SCH ×2 (08:38→22:46)
[2016-08-13] MEDS: PANTOPRAZOLE SODIUM 40 MG VIAL IV PUSH SCH ×2 (08:38→22:45)
[2016-08-13 09:04] LABS: PLATELET ESTIMATE SMEAR LOW (NORMAL); PLATELET MORPHOLOGY NORMAL (NORMAL); SCAN/DIFF AUTO DIFF CONFIRMED
[2016-08-13] MEDS ORDERED: DEXTROSE 50% IN WATER 50 ML VIAL(D50) IV ONE (11:00)
[2016-08-13] MEDS ORDERED: CALCIUM GLUCONATE INJ 1 GM in SODIUM CHLORIDE 0.9% INJ 100 ML IV ONE (11:30)
[2016-08-13] MEDS ORDERED: SODIUM POLYSTYRENE SULFONATE SUSP 15 GM/60 ML CUP PO ONE (11:30)
[2016-08-13] MEDS ORDERED: INSULIN HUMAN REGULAR 1,000 UNITS/10 ML VIAL SQ ONE (11:30)
--- NOTE | 2016-08-13 12:59 | HHI.GIFU ---
Subjective Remarks Pt more conversive today Pt states that he overall does not feel well Only pain he complains of is facial pain Pt had one BM reported last night bu nursing staff, nonbloody. (Vilma Schwarz) Objective Vitals I&O Vital Signs Date Time Temp Pulse Resp B/P Pulse Ox O2 Delivery O2 Flow Rate FiO2 08/13/16 07:50 96.1 81 20 171/69 95 08/13/16 04:00 97.8 71 22 159/71 97 08/13/16 00:00 97.1 72 22 126/58 97 08/12/16 23:30 Nasal Cannula 2.00 08/12/16 20:00 98.1 72 20 142/64 98 08/12/16 17:44 75 08/12/16 17:35 98.0 72 20 141/69 97 08/12/16 16:00 64 08/12/16 16:00 97.8 69 18 151/68 100 08/12/16 14:00 64 I/O 08/12/16 08/12/16 08/12/16 08/13/16 08/13/16 08/13/16 07:00 15:00 23:00 07:00 15:00 23:00 Intake Total 1094 ml 1393 ml 480 ml Output Total 650 ml 850 ml 175 ml Balance 444 ml 543 ml 305 ml Intake Oral 480 ml 720 ml 480 ml IV Total 614 ml 673 ml Output Urine Total 650 ml 850 ml 175 ml # Bowel Movements 0 0 1 Laboratory Laboratory Tests Test 08/13/16 06:31 White Blood Count 6.0 Red Blood Count 2.24 Hemoglobin 8.0 Hematocrit 23.5 Mean Corpuscular Volume 104.9 Mean Corpuscular Hemoglobin 35.5 Mean Corpuscular Hemoglobin 33.8 Concent Red Cell Distribution Width 24.0 Platelet Count 28 Mean Platelet Volume 8.5 Neutrophils (%) (Auto) 73.4 Lymphocytes (%) (Auto) 13.9 Monocytes (%) (Auto) 11.4 Eosinophils (%) (Auto) 0.7 Basophils (%) (Auto) 0.6 Neutrophils # (Auto) 4.4 Lymphocytes # (Auto) 0.8 Monocytes # (Auto) 0.7 Eosinophils # (Auto) 0.0 Basophils # (Auto) 0.0 CBC Comment AUTO DIFF Differential Comment AUTO DIFF CONFIRMED Platelet Estimate LOW Platelet Morphology Comment NORMAL Sodium Level 136 Potassium Level 3.6 Chloride Level 104 Carbon Dioxide Level 25.2 Anion Gap 7 Blood Urea Nitrogen 9 Creatinine 0.77 Estimat Glomerular Filtration 106 Rate Random Glucose 164 Calcium Level 6.9 Protein Corrected Calcium 7.3 Total Bilirubin 9.9 Aspartate Amino Transf 125 (AST/SGOT) Alanine Aminotransferase 40 (ALT/SGPT) Alkaline Phosphatase 89 Total Protein 6.3 Albumin 1.5 Imaging Last Impressions Upper Extremity Ultrasound 08/08/16 0000 Signed Impressions: Service Date/Time: Monday, August 08, 2016 10:34 - CONCLUSION: Soft tissue swelling. Otherwise negative without DVT. Kishor Kim MD Physical Exam HEENT: Multiple ecchymotic areas to face CHEST: CTA CARDIAC: RRR ABDOMEN: Soft, nondistended, nontender; hepatosplenomegaly; bowel sounds are present in all four quadrants. EXTREMITIES: Significant edema and ecchymosis to RUE- although not tender, good pulse, no numbness/tingling, BLE edema SKIN: Significant bruising- especially to face and UE. COMPUTER SECURITY SPECIALIST: More alert and conversive but still overall lethargic, won't open his eyes to speak with me (Vilma Schwarz) Assessment and Plan Plan ASSESSMENT: - Anemia. No obvious active GI bleeding. Pt reports significant nose bleed when he originally fell, but denies any hematemesis, melena, or hematochezia. The nurse denies any obvious active bleeding. Of note, CT on 08/06 mentioned probable right flank hematoma and he has significant ecchymosis to RUE. S/P 2 units of PRBC. Of note, has hx of gastric bypass. HH stable 8.0/23.5. If significant drop in Hgb, consider repeat CT to evaluate hematoma. No obvious active GI bleeding. - Thrombocytopenia, Coagulopathy. Plt 28 today. Labs on 08/11 with PT 22.0, INR 1.9, APTT 44.3, Fibrinogen 123. S/P 2 units FFP, 2 units of Plt 2 units, 1 unit cryoprecipitate. - Elevated LFTs, Alcoholic Hepatitis on underlying liver cirrhosis. T. Bili 9.9 , AST 125, ALT 40, Alk Phosph 89 DF 57.4. MELD 23. Pentoxifylline - Elevated Lipase. No n/v, abdominal pain with this. No evidence of pancreatitis on CT scan on 08/06. Lipase improved. - AMS, likely combination of hepatic encephalopathy and DTs. Ammonia 78. Xifaxan/Lactulose QID. - GERD. PPI - RUE Edema/Ecchymosis. S/P CVT eval. No compartment syndrome. - Probable right flank hematoma. CT 08/06 probable 2.6 cm hematoma - Multiple electrolyte abnormalities. per primary - HTN, MAHENDRA, Depression. per primary - ETOH abuse. Librium per patient. PLAN: - Low salt diet - Cont. Xifaxan - Lactulose QID - Cont. PPI - Cont. Pentoxifylline - Monitor labs - Consider EGD when more stable - Consider repeat CT scan if worsening anemia to f/u on hematoma - Further recommendations as the case develops - Pt seen and examined by Dr. Collins and myself and this note is written on her behalf (Vilma Schwarz) Physician Comments seen, examined agree with above (Bisi Collins MD) Vilma Schwarz Aug 13, 2016 12:59 Bisi Collins MD Aug 13, 2016 15:25
--- NOTE | 2016-08-13 13:36 | EKG ---
Date Performed: 08/13/2016 Time Performed: 10:59:53 PTAGE: 50 years EKG: Sinus rhythm PROLONGED QT INTERVAL ABNORMAL ECG NO PREVIOUS TRACING DOCTOR: Rick Muro Interpretating Date/Time 08/13/2016 13:32:46
[2016-08-13] MEDS: RIFAXIMIN 550 MG TAB PO SCH ×2 (16:26→22:43)
[2016-08-14] VITALS (7 sets, daily range): BP systolic 150–188; BP diastolic 69–80; PULSE 70–97; RESP 18–20; TEMP 96.1–97.8; O2SAT 96–99
[2016-08-14] MEDS: DEXT 5%-NACL 0.9% 1000 ML INJ 1,000 ML IV SCH ×2 (04:40→18:33)
[2016-08-14] MEDS: PENTOXIFYLLINE 400 MG CONTROLLED RELEASE TAB PO SCH ×3 (06:45→22:00)
--- NOTE | 2016-08-14 08:34 | HHI.PR ---
Subjective History of Present Illness Patient seen on 08/13/16 Patient agitation better off restraints was in DT on librium and also thiamine and folic acid. have jaundice right hand swelling better Discussed with RN no Acute Issue low potassium resolved. Magnasium 1.9 Low sodium better. Review of Systems Constitutional Constitutional: Fatigue, Weakness GI/Abdomen GI/Abdomen Remarks Jaundice, Abdominal distention. Integumentary Skin Remarks Multiple right arm and chest Bruises Vitals/Results Intake & Output 08/13/16 08/13/16 08/14/16 15:00 23:00 07:00 Intake Total 629 ml 480 ml 480 ml Output Total 800 ml 575 ml Balance 629 ml -320 ml -95 ml Intake Oral 480 ml 480 ml IV Total 629 ml Output Urine Total 800 ml 575 ml # Bowel Movements 1 Vital Signs Vital Signs Date Time Temp Pulse Resp B/P Pulse Ox O2 Delivery O2 Flow Rate FiO2 08/14/16 04:00 97.0 85 19 167/69 96 08/14/16 00:00 97.8 87 18 164/72 97 08/13/16 20:07 80 08/13/16 20:00 97.8 73 19 151/67 96 08/13/16 19:27 Nasal Cannula 2.00 08/13/16 15:50 96.3 72 20 155/63 97 08/13/16 11:50 96.4 88 20 162/67 97 08/13/16 08:42 80 08/13/16 08:40 97 Nasal Cannula 2.00 CBC/BMP: 08/13/16 0631 08/13/16 0631 Physical Exam General General Appearance: No Acute Distress, Comfortable Eyes Eye Exam: Pupils Equal, Pupils Reactive, Sclera White, Extraocular Movement Intact Throat Throat Exam: Oral Mucosa [place] & Moist, Oral Pharynx Normal Neck Neck Exam: Neck Supple, Trachea Midline Pulmonary Resp Exam: Clear Bilaterally, Breath Sounds Equal, No Distress Cardiology CV Exam: Regular, Normal Sinus Rhythm Gastrointestinal/Abdomen GI Exam: Soft, Non-Tender, Bowel Sounds Present Musculoskeletal MS Exam: Normal Tone, Unable to Ambulate MS Remarks swelling and bruises right upper extremity. Integumentary Skin Exam: Warm, Dry Skin Remarks Multiple Bruises right upper extremity and chest. Neurologic Neuro Exam: Alert, Awake, Moving All Extremities, Combative Neuro Remarks confused. Psychiatric Psych Exam: Appropriate Responses VTE Prophylaxis VTE Prophylaxis Device: SCDs PUD Prophylasis PUD Prophylaxis: Protonix Assessment/Plan Assessment/Plan ASSESSMENT/PLAN This is 50-year-old male who came to the ER diagnosed with status post fall secondary to balance problem, secondary to the left acoustic neuroma removed and Alcohol intoxication causing the large bruises. Need to check the right upper extremity frequently for compartment syndrome, Vascular surgery input noted. Keep the right upper extremity elevated and frequently check neurovascular status. Acute anemia secondary to acute bleed in the right upper extremity. We will monitor H&H and s/p packed RBC blood transfusion. Low platelets secondary to alcoholic liver disease. Hematology input noted, s/p platelet transfusion. Hyponatremia. The patient is on normal saline. We will monitor, improving...better. Hypocalcemia. The patient is status post calcium gluconate. High LFTs secondary to alcoholic liver disease. GI input noted. Further recommendation per GI. High lipase. The patient denies any abdominal pain. Alcohol abuse/Intoxication. The patient's alcohol level was 258. The patient advised to stop drinking alcohol. The patient is on DT prophylaxis, thiamine, folic acid and Librium.. Coagulopathy, INR was 1.9, secondary to alcohol liver disease. Generalized weakness secondary to multiple factor as dictated above. History of left acoustic neuroma status post removal, the patient has a balance problem DVT prophylaxis, SCD's. GI prophylaxis, Protonix. Altered mental status hepatic encephalopathy ( Ammonia level 78 ) and DT Poor prognosis with advance liver disease. Check CBC with diff CMP in AM. We are going to manage the patient on a daily basis and make recommendations on a daily basis. Discussed Condition with: Patient Ramiro Perez MD Aug 14, 2016 08:34
[2016-08-14] MEDS: SODIUM CHLORIDE 0.9% FLUSH 10 ML FLUSH IV FLUSH SCH ×2 (09:00→21:33)
[2016-08-14 09:34] LABS: INTERNATIONAL NORMALIZED RATIO 1.9 RATIO; PROTHROMBIN TIME - PATIENT 21.6 SEC (9.8-11.6)
[2016-08-14 09:37] LABS: AUTOMATED NEUTROPHIL # 3.5 TH/MM3 (1.8-7.7); BASOPHIL % 0.9 % (0.0-2.0); EOSINOPHIL # 0.1 TH/MM3 (0-0.4); EOSINOPHIL % 1.1 % (0.0-4.0); HEMATOCRIT 27.2 % (39.0-51.0); LYMPH % 19.3 % (9.0-44.0); MEAN CELL VOLUME 104.9 FL (80.0-100.0); MEAN CORPUSCULAR HEMOGLOBIN 36.2 PG (27.0-34.0); MEAN CORPUSCULAR HGB CONC 34.5 % (32.0-36.0); MONO % 13.7 % (0.0-8.0); PLATELET COUNT 32 TH/MM3 (150-450); RED CELL DISTRIBUTION WIDTH 23.4 % (11.6-17.2); WHITE BLOOD COUNT 5.3 TH/MM3 (4.0-11.0)
[2016-08-14 09:41] LABS: HEMO FLAGS AUTO DIFF
[2016-08-14] MEDS: RIFAXIMIN 550 MG TAB PO SCH ×2 (09:53→21:59)
[2016-08-14] MEDS: THIAMINE HCL 100 MG TAB PO SCH (09:53)
[2016-08-14] MEDS: PANTOPRAZOLE SODIUM 40 MG VIAL IV PUSH SCH ×2 (09:53→21:34)
[2016-08-14] MEDS: LACTULOSE SYRUP 20 GM/30 ML CUP PO SCH ×4 (09:53→21:59)
[2016-08-14] MEDS: cloNIDine HCL 0.2 MG TAB PO SCH ×2 (09:54→21:41)
[2016-08-14] MEDS: CALCIUM CARBONATE 500 MG CHEWABLE TAB PO SCH ×2 (09:54→21:59)
[2016-08-14] MEDS: FOLIC ACID 1 MG TAB PO SCH (09:54)
[2016-08-14] MEDS: chlordiazePOXIDE 25 MG CAP PO SCH ×4 (09:54→21:59)
[2016-08-14 10:15] LABS: ALKALINE PHOSPHATASE 101 U/L (45-117); ALT (GPT) 48 U/L (12-78); ANION GAP 9 MEQ/L (5-15); AST (GOT) 132 U/L (15-37); BICARBONATE 23.3 MEQ/L (21.0-32.0); CHLORIDE 104 MEQ/L (98-107); GLOMERULAR FILTRATION RATE 117 ML/MIN (>89); POTASSIUM 3.3 MEQ/L (3.5-5.1); SODIUM (NA) 136 MEQ/L (136-145); TOTAL BILIRUBIN ADULT 12.1 MG/DL (0.2-1.0)
[2016-08-14 10:17] LABS: BLOOD UREA NITROGEN 5 MG/DL (7-18)
[2016-08-14 10:27] LABS: ACANTHOCYTES OCC (NORMAL); PLATELET ESTIMATE SMEAR LOW (NORMAL); PLATELET MORPHOLOGY NORMAL (NORMAL); SCAN/DIFF AUTO DIFF CONFIRMED
[2016-08-14 11:15] LABS: APTT (PATIENT) 40.5 SEC (24.3-30.1)
[2016-08-14 11:17] LABS: INTERNATIONAL NORMALIZED RATIO 1.9 RATIO; PROTHROMBIN TIME - PATIENT 21.6 SEC (9.8-11.6)
--- NOTE | 2016-08-14 13:16 | PD.ONC.PN ---
Subjective Subjective Remarks Afebrile overnight. Patient resting. Reports he feels "awful." No bleeding reported. Objective Data Date Time Temp Pulse Resp B/P Pulse Ox O2 Delivery O2 Flow Rate FiO2 08/14/16 08:00 96.1 85 18 186/77 99 08/14/16 04:00 97.0 85 19 167/69 96 08/14/16 00:00 97.8 87 18 164/72 97 08/13/16 20:07 80 08/13/16 20:00 97.8 73 19 151/67 96 08/13/16 19:27 Nasal Cannula 2.00 08/13/16 15:50 96.3 72 20 155/63 97 08/14/16 08/14/16 08/14/16 07:00 15:00 23:00 Intake Total 480 ml Output Total 575 ml Balance -95 ml Result Diagram: 08/14/16 0853 08/14/16 0853 Laboratory Results Laboratory Tests Test 08/14/16 08:53 White Blood Count 5.3 TH/MM3 Red Blood Count 2.60 MIL/MM3 Hemoglobin 9.4 GM/DL Hematocrit 27.2 % Mean Corpuscular Volume 104.9 FL Mean Corpuscular Hemoglobin 36.2 PG Mean Corpuscular Hemoglobin 34.5 % Concent Red Cell Distribution Width 23.4 % Platelet Count 32 TH/MM3 Mean Platelet Volume 9.0 FL Neutrophils (%) (Auto) 65.0 % Lymphocytes (%) (Auto) 19.3 % Monocytes (%) (Auto) 13.7 % Eosinophils (%) (Auto) 1.1 % Basophils (%) (Auto) 0.9 % Neutrophils # (Auto) 3.5 TH/MM3 Lymphocytes # (Auto) 1.0 TH/MM3 Monocytes # (Auto) 0.7 TH/MM3 Eosinophils # (Auto) 0.1 TH/MM3 Basophils # (Auto) 0.0 TH/MM3 CBC Comment AUTO DIFF Differential Comment AUTO DIFF CONFIRMED Platelet Estimate LOW Platelet Morphology Comment NORMAL Acanthocytes OCC Prothrombin Time 21.6 SEC Prothromb Time International 1.9 RATIO Ratio Activated Partial 40.5 SEC Thromboplast Time Fibrinogen 124 mg/dL Sodium Level 136 MEQ/L Potassium Level 3.3 MEQ/L Chloride Level 104 MEQ/L Carbon Dioxide Level 23.3 MEQ/L Anion Gap 9 MEQ/L Blood Urea Nitrogen 5 MG/DL Creatinine 0.71 MG/DL Estimat Glomerular Filtration 117 ML/MIN Rate Random Glucose 168 MG/DL Calcium Level 7.5 MG/DL Total Bilirubin 12.1 MG/DL Aspartate Amino Transf 132 U/L (AST/SGOT) Alanine Aminotransferase 48 U/L (ALT/SGPT) Alkaline Phosphatase 101 U/L Total Protein 7.5 GM/DL Albumin 1.8 GM/DL Administered Medications Medications (Trade) Dose Ordered Sig/Ivan Route PRN Reason Start Time Stop Time Status Last Admin Dose Admin Sodium Chloride (NS Flush) 2 ml BID IV FLUSH 08/08/16 09:00 08/13/16 08:38 Haloperidol Lactate (Haldol Inj) 2 mg Q15M PRN IM SEE LABEL COMMENTS 08/07/16 22:45 08/10/16 16:01 Clonidine 0.1 mg 0.1 mg Q6H PRN PO SEE LABEL COMMENTS 08/07/16 22:45 08/12/16 01:01 Dextrose/Sodium Chloride (D5W-NS 1000 ml Inj) 1,000 ml @ 70 mls/hr [id number] IV 08/07/16 23:00 08/14/16 04:40 Clonidine (Catapres) 0.2 mg BID PO 08/08/16 09:00 08/14/16 09:54 Acetaminophen/ Hydrocodone Bitart (Molt 7.5-325 Mg) 1 tab Q4H PRN PO PAIN 08/08/16 09:00 08/13/16 22:43 Folic Acid (Folate) 1 mg DAILY PO 08/09/16 09:00 08/14/16 09:54 Thiamine HCl (Vitamin B1) 100 mg DAILY PO 08/09/16 09:00 08/14/16 09:53 Morphine Sulfate (Morphine Inj) 2 mg Q6H PRN IV PUSH PAIN 1-10 08/08/16 14:30 08/13/16 02:36 Pantoprazole Sodium (Protonix Inj) 40 mg Q12H IV PUSH 08/09/16 09:30 08/14/16 09:53 Pentoxifylline (TRENtal SR) 400 mg Q8HR PO 08/09/16 14:00 08/14/16 06:45 Chlordiazepoxide (Librium) 50 mg QID PO 08/10/16 13:00 08/14/16 09:54 Rifaximin (Xifaxan) 550 mg BID PO 08/10/16 21:00 08/14/16 09:53 Lactulose (Lactulose Liq) 30 ml QID PO 08/11/16 13:00 08/14/16 09:53 Calcium Carbonate (Tums Chew) 500 mg BID PO 08/12/16 09:00 08/14/16 09:54 Objective Remarks GENERAL: Obese, chronically ill male with scattered bruises laying supine in bed. SKIN: Warm and dry. HEAD: Normocephalic. EYES: No injection or drainage. NECK: Supple, trachea midline. CARDIOVASCULAR: Regular rate and rhythm RESPIRATORY: Breath sounds equal bilaterally. No accessory muscle use. GASTROINTESTINAL: Abdomen soft, non-tender, nondistended. EXTREMITIES: No cyanosis. right upper extremity with ecchymoses and edema. Assessment/Plan Problem List: (1) Thrombocytopenia Status: Acute Plan: --is acute on chronic. --underlying thrombocytopenia due to cirrhosis and splenomegaly. (2) Anemia Status: Acute Plan: --multifactorial from bleeding and bone marrow suppression due to alcohol. --can also have vitamin deficiency given his history of gastric bypass surgery. (3) Coagulopathy Status: Acute Plan: -- due to liver disease from alcohol use. -s/p cryo and FFP Assessment 50y/o male admitted [place] [facility] [place] Hematology consulted for thrombocytopenia and anemia. history of alcohol abuse and cirrhosis with portal hypertension Gastric bypass surgery, cholecystectomy. Plan 1. no transfusion needed today. No bleeding and fibrinogen>100 2. monitor CBC, coags Attending Statement The exam, history, and the medical decision-making described in the above note were completed with the assistance of the mid-level provider. I reviewed and agree with the findings presented. I attest that I had a [id number] encounter with the patient on the same day, and personally performed and documented my assessment and findings in the medical record. Still weak. No bleeding noted. RUE ecchymosis resolving. Monitor CBC/coags. Transfuse cryoprecipitate if fibrinogen<100 or any evidence of bleeding. Radha Wright Aug 14, 2016 13:16 Ronni Casarez MD Aug 14, 2016 16:07
--- NOTE | 2016-08-14 16:49 | HHI.PR ---
Subjective History of Present Illness Patient agitation better off restraints was in DT on librium and also thiamine and folic acid. have jaundice right hand swelling better no Acute Issue low potassium will replace. Low sodium better. Review of Systems Constitutional Constitutional: Fatigue, Weakness GI/Abdomen GI/Abdomen Remarks Jaundice, Abdominal distention. Integumentary Skin Remarks Multiple right arm and chest Bruises Vitals/Results Intake & Output 08/13/16 08/13/16 08/14/16 15:00 23:00 07:00 Intake Total 629 ml 480 ml 480 ml Output Total 800 ml 575 ml Balance 629 ml -320 ml -95 ml Intake Oral 480 ml 480 ml IV Total 629 ml Output Urine Total 800 ml 575 ml # Bowel Movements 1 Vital Signs Vital Signs Date Time Temp Pulse Resp B/P Pulse Ox O2 Delivery O2 Flow Rate FiO2 08/14/16 12:00 96.5 70 18 150/69 99 08/14/16 08:00 Nasal Cannula 2.00 08/14/16 08:00 96.1 85 18 186/77 99 08/14/16 04:00 97.0 85 19 167/69 96 08/14/16 00:00 97.8 87 18 164/72 97 08/13/16 20:07 80 08/13/16 20:00 97.8 73 19 151/67 96 08/13/16 19:27 Nasal Cannula 2.00 CBC/BMP: 08/14/16 0853 08/14/16 0853 Lab Results Laboratory Tests Test 08/14/16 08:53 White Blood Count 5.3 TH/MM3 Red Blood Count 2.60 MIL/MM3 Hemoglobin 9.4 GM/DL Hematocrit 27.2 % Mean Corpuscular Volume 104.9 FL Mean Corpuscular Hemoglobin 36.2 PG Mean Corpuscular Hemoglobin 34.5 % Concent Red Cell Distribution Width 23.4 % Platelet Count 32 TH/MM3 Mean Platelet Volume 9.0 FL Neutrophils (%) (Auto) 65.0 % Lymphocytes (%) (Auto) 19.3 % Monocytes (%) (Auto) 13.7 % Eosinophils (%) (Auto) 1.1 % Basophils (%) (Auto) 0.9 % Neutrophils # (Auto) 3.5 TH/MM3 Lymphocytes # (Auto) 1.0 TH/MM3 Monocytes # (Auto) 0.7 TH/MM3 Eosinophils # (Auto) 0.1 TH/MM3 Basophils # (Auto) 0.0 TH/MM3 CBC Comment AUTO DIFF Differential Comment AUTO DIFF CONFIRMED Platelet Estimate LOW Platelet Morphology Comment NORMAL Acanthocytes OCC Prothrombin Time 21.6 SEC Prothromb Time International 1.9 RATIO Ratio Activated Partial 40.5 SEC Thromboplast Time Fibrinogen 124 mg/dL Sodium Level 136 MEQ/L Potassium Level 3.3 MEQ/L Chloride Level 104 MEQ/L Carbon Dioxide Level 23.3 MEQ/L Anion Gap 9 MEQ/L Blood Urea Nitrogen 5 MG/DL Creatinine 0.71 MG/DL Estimat Glomerular Filtration 117 ML/MIN Rate Random Glucose 168 MG/DL Calcium Level 7.5 MG/DL Total Bilirubin 12.1 MG/DL Aspartate Amino Transf 132 U/L (AST/SGOT) Alanine Aminotransferase 48 U/L (ALT/SGPT) Alkaline Phosphatase 101 U/L Total Protein 7.5 GM/DL Albumin 1.8 GM/DL Physical Exam General General Appearance: Well Developed, No Acute Distress, Comfortable Eyes Eye Exam: Pupils Equal, Pupils Reactive, Sclera White, Extraocular Movement Intact Throat Throat Exam: Oral Mucosa [place] & Moist, Oral Pharynx Normal Neck Neck Exam: Neck Supple, Trachea Midline Pulmonary Resp Exam: Clear Bilaterally, Breath Sounds Equal, No Distress Cardiology CV Exam: Regular, Normal Sinus Rhythm Gastrointestinal/Abdomen GI Exam: Soft, Non-Tender, Bowel Sounds Present Musculoskeletal MS Exam: Normal Tone, Unable to Ambulate MS Remarks swelling and bruises right upper extremity. Integumentary Skin Exam: Warm, Dry Skin Remarks Multiple Bruises right upper extremity and chest. Neurologic Neuro Exam: Alert, Awake, Moving All Extremities, Combative Neuro Remarks confused. Psychiatric Psych Exam: Appropriate Responses VTE Prophylaxis VTE Prophylaxis Device: SCDs PUD Prophylasis PUD Prophylaxis: Protonix Assessment/Plan Assessment/Plan ASSESSMENT/PLAN This is 50-year-old male who came to the ER diagnosed with status post fall secondary to balance problem, secondary to the left acoustic neuroma removed and Alcohol intoxication causing the large bruises. Need to check the right upper extremity frequently for compartment syndrome, Vascular surgery input noted. Keep the right upper extremity elevated and frequently check neurovascular status. Acute anemia secondary to acute bleed in the right upper extremity. We will monitor H&H and s/p packed RBC blood transfusion. Low platelets secondary to alcoholic liver disease. Hematology input noted, s/p platelet transfusion. Hyponatremia. The patient is on normal saline. We will monitor, improving...better. Hypocalcemia. The patient is status post calcium gluconate. High LFTs secondary to alcoholic liver disease. GI input noted. Further recommendation per GI. High lipase. The patient denies any abdominal pain. Alcohol abuse/Intoxication. The patient's alcohol level was 258. The patient advised to stop drinking alcohol. The patient is on DT prophylaxis, thiamine, folic acid and Librium.. Coagulopathy, INR was 1.9, secondary to alcohol liver disease. Generalized weakness secondary to multiple factor as dictated above. History of left acoustic neuroma status post removal, the patient has a balance problem DVT prophylaxis, SCD's. GI prophylaxis, Protonix. Altered mental status hepatic encephalopathy ( Ammonia level 78 ) and DT Poor prognosis with advance liver disease. Hypokalemia will replace. Check CBC with diff CMP in AM. We are going to manage the patient on a daily basis and make recommendations on a daily basis. Discussed Condition with: Patient Ramiro Perez MD Aug 14, 2016 16:49
--- NOTE | 2016-08-14 16:56 | HHI.GIFU ---
Subjective Remarks Pt resting in bed. Mumbled incoherently. Noncontributory. (Maria Luz Sims) Objective Vitals I&O Vital Signs Date Time Temp Pulse Resp B/P Pulse Ox O2 Delivery O2 Flow Rate FiO2 08/14/16 12:00 96.5 70 18 150/69 99 08/14/16 08:00 Nasal Cannula 2.00 08/14/16 08:00 96.1 85 18 186/77 99 08/14/16 04:00 97.0 85 19 167/69 96 08/14/16 00:00 97.8 87 18 164/72 97 08/13/16 20:07 80 08/13/16 20:00 97.8 73 19 151/67 96 08/13/16 19:27 Nasal Cannula 2.00 I/O 08/13/16 08/13/16 08/13/16 08/14/16 08/14/16 08/14/16 07:00 15:00 23:00 07:00 15:00 23:00 Intake Total 480 ml 629 ml 480 ml 480 ml Output Total 175 ml 800 ml 575 ml Balance 305 ml 629 ml -320 ml -95 ml Intake Oral 480 ml 480 ml 480 ml IV Total 629 ml Output Urine Total 175 ml 800 ml 575 ml # Bowel Movements 1 1 Laboratory Laboratory Tests Test 08/14/16 08:53 White Blood Count 5.3 Red Blood Count 2.60 Hemoglobin 9.4 Hematocrit 27.2 Mean Corpuscular Volume 104.9 Mean Corpuscular Hemoglobin 36.2 Mean Corpuscular Hemoglobin 34.5 Concent Red Cell Distribution Width 23.4 Platelet Count 32 Mean Platelet Volume 9.0 Neutrophils (%) (Auto) 65.0 Lymphocytes (%) (Auto) 19.3 Monocytes (%) (Auto) 13.7 Eosinophils (%) (Auto) 1.1 Basophils (%) (Auto) 0.9 Neutrophils # (Auto) 3.5 Lymphocytes # (Auto) 1.0 Monocytes # (Auto) 0.7 Eosinophils # (Auto) 0.1 Basophils # (Auto) 0.0 CBC Comment AUTO DIFF Differential Comment AUTO DIFF CONFIRMED Platelet Estimate LOW Platelet Morphology Comment NORMAL Acanthocytes OCC Prothrombin Time 21.6 Prothromb Time International 1.9 Ratio Activated Partial 40.5 Thromboplast Time Fibrinogen 124 Sodium Level 136 Potassium Level 3.3 Chloride Level 104 Carbon Dioxide Level 23.3 Anion Gap 9 Blood Urea Nitrogen 5 Creatinine 0.71 Estimat Glomerular Filtration 117 Rate Random Glucose 168 Calcium Level 7.5 Total Bilirubin 12.1 Aspartate Amino Transf 132 (AST/SGOT) Alanine Aminotransferase 48 (ALT/SGPT) Alkaline Phosphatase 101 Total Protein 7.5 Albumin 1.8 Imaging Last Impressions Upper Extremity Ultrasound 08/08/16 0000 Signed Impressions: Service Date/Time: Monday, August 08, 2016 10:34 - CONCLUSION: Soft tissue swelling. Otherwise negative without DVT. Kishor Kim MD Physical Exam HEENT: Multiple ecchymotic areas to face, eyes appear jaundiced CHEST: CTA CARDIAC: RRR ABDOMEN: Soft, nondistended, nontender; hepatosplenomegaly; bowel sounds are present in all four quadrants. EXTREMITIES: Significant edema and ecchymosis to RUE- BLE edema SKIN: Significant bruising- especially to face and UE [employer]: lethargic, won't open his eyes to speak with me (Maria Luz Sims RANGE TECHNICIAN) Assessment and Plan Plan ASSESSMENT: - Anemia. No obvious active GI bleeding. Pt reports significant nose bleed when he originally fell, but denies any hematemesis, melena, or hematochezia. The nurse denies any obvious active bleeding. Of note, CT on 08/06 mentioned probable right flank hematoma and he has significant ecchymosis to RUE. S/P 2 units of PRBC. Of note, has hx of gastric bypass. HH stable 9.4/27.2. If significant drop in Hgb, consider repeat CT to evaluate hematoma. No obvious active GI bleeding. - Thrombocytopenia, Coagulopathy. Plt 32 today. Labs on 08/14 with PT 21.6, INR 1.9, APTT 40.5, Fibrinogen 124. S/P 2 units FFP, 2 units of Plt 2 units, 1 unit cryoprecipitate. - Elevated LFTs, Alcoholic Hepatitis on underlying liver cirrhosis. T. Bili 10.2, AST 183, ALT 48, Alk Phosph 91 ammonia 79 DF 57.4. MELD 23. Pentoxifylline - Elevated Lipase. No n/v, abdominal pain with this. No evidence of pancreatitis on CT scan on 08/06. Lipase improved. - AMS, likely combination of hepatic encephalopathy and DTs. Ammonia 79. Xifaxan/Lactulose QID. - GERD. PPI - RUE Edema/Ecchymosis. S/P CVT eval. No compartment syndrome. - Probable right flank hematoma. CT 08/06 probable 2.6 cm hematoma - Multiple electrolyte abnormalities. per primary - HTN, MAHENDRA, Depression. per primary - ETOH abuse. Librium per patient. PLAN: - Low salt diet - Cont. Xifaxan - Lactulose QID - Cont. PPI - Cont. Pentoxifylline - Monitor labs - Consider EGD when more stable - Consider repeat CT scan if worsening anemia to f/u on hematoma - Further recommendations as the case develops - Pt seen and examined by Dr. Moreno and myself and this note is written on his behalf (Maria Luz Sims) Physician Comments Patient seen and examined Agree with above Continue with current supportive care Monitor labs (Max Moreno MD) Maria Luz Sims Aug 14, 2016 16:56 Max Moreno MD Aug 14, 2016 20:42
[2016-08-14] MEDS ORDERED: POTASSIUM CHLORIDE 10 MEQ CONTROLLED RELEASE TAB PO ONE (17:00)
[2016-08-14] MEDS ORDERED: cloNIDine HCL 0.1 MG TAB PO PRN (17:00)
[2016-08-14] MEDS: POTASSIUM CHLOR 20 MEQ PREMIX 100 ML IV SCH ×3 (19:17→23:35)
[2016-08-15] VITALS (7 sets, daily range): BP systolic 120–192; BP diastolic 61–90; PULSE 65–93; RESP 18–28; TEMP 95.3–99.1; O2SAT 94–99
[2016-08-15] MEDS: PENTOXIFYLLINE 400 MG CONTROLLED RELEASE TAB PO SCH ×3 (06:00→21:06)
[2016-08-15 07:54] LABS: AUTOMATED NEUTROPHIL # 2.4 TH/MM3 (1.8-7.7); BASOPHIL # 0.1 TH/MM3 (0-0.2); BASOPHIL % 1.3 % (0.0-2.0); EOSINOPHIL # 0.1 TH/MM3 (0-0.4); EOSINOPHIL % 1.3 % (0.0-4.0); HEMATOCRIT 23.9 % (39.0-51.0); LYMPH % 20.1 % (9.0-44.0); LYMPHOCYTE # 0.8 TH/MM3 (1.0-4.8); MEAN CELL VOLUME 106.2 FL (80.0-100.0); MEAN CORPUSCULAR HEMOGLOBIN 35.2 PG (27.0-34.0); MEAN CORPUSCULAR HGB CONC 33.1 % (32.0-36.0); MONO % 16.2 % (0.0-8.0); NEUT % 61.1 % (16.0-70.0); PLATELET COUNT 23 TH/MM3 (150-450); RED BLOOD COUNT 2.25 MIL/MM3 (4.50-5.90); RED CELL DISTRIBUTION WIDTH 23.4 % (11.6-17.2); WHITE BLOOD COUNT 3.9 TH/MM3 (4.0-11.0)
[2016-08-15 08:02] LABS: HEMO FLAGS AUTO DIFF
[2016-08-15 08:04] LABS: BICARBONATE 24.7 MEQ/L (21.0-32.0); CALCIUM-PROTEIN CORRECTED 7.8 MG/DL (8.5-10.1); POTASSIUM 3.6 MEQ/L (3.5-5.1); TOTAL BILIRUBIN ADULT 9.4 MG/DL (0.2-1.0)
[2016-08-15] MEDS: DEXT 5%-NACL 0.9% 1000 ML INJ 1,000 ML IV SCH ×2 (08:57→23:15)
[2016-08-15] MEDS: SODIUM CHLORIDE 0.9% FLUSH 10 ML FLUSH IV FLUSH SCH ×2 (09:00→21:07)
[2016-08-15] MEDS: LACTULOSE SYRUP 20 GM/30 ML CUP PO SCH ×4 (09:19→21:06)
[2016-08-15] MEDS: MORPHINE SULFATE 4 MG/ML INJ IV PUSH PRN (09:19)
[2016-08-15] MEDS: CALCIUM CARBONATE 500 MG CHEWABLE TAB PO SCH ×2 (09:20→21:07)
[2016-08-15] MEDS: FOLIC ACID 1 MG TAB PO SCH (09:20)
[2016-08-15] MEDS: cloNIDine HCL 0.2 MG TAB PO SCH ×2 (09:20→21:07)
[2016-08-15] MEDS: chlordiazePOXIDE 25 MG CAP PO SCH ×4 (09:20→21:06)
[2016-08-15] MEDS: THIAMINE HCL 100 MG TAB PO SCH (09:20)
[2016-08-15] MEDS: PANTOPRAZOLE SODIUM 40 MG VIAL IV PUSH SCH ×2 (09:20→21:07)
[2016-08-15] MEDS: RIFAXIMIN 550 MG TAB PO SCH ×2 (09:20→21:06)
--- NOTE | 2016-08-15 09:29 | HHI.PR ---
Subjective History of Present Illness Patient confused and mumble agitation better off restraints was in DT on librium and also thiamine and folic acid. have jaundice right hand swelling better no Acute Issue low potassium resolved.. Low sodium better. Need endoscopy when stable...d/w [facility] Laura portillo. Review of Systems Constitutional Constitutional: Fatigue, Weakness GI/Abdomen GI/Abdomen Remarks Jaundice, Abdominal distention. Integumentary Skin Remarks Multiple right arm and chest Bruises Neurologic Neurologic: Confused Vitals/Results Intake & Output 08/14/16 08/14/16 08/15/16 15:00 23:00 07:00 Intake Total 480 ml 1012 ml Output Total 650 ml 400 ml 200 ml Balance -170 ml -400 ml 812 ml Intake Oral 480 ml IV Total 1012 ml Output Urine Total 650 ml 400 ml 200 ml Vital Signs Vital Signs Date Time Temp Pulse Resp B/P Pulse Ox O2 Delivery O2 Flow Rate FiO2 08/15/16 08:00 95.3 69 20 120/64 99 08/15/16 04:15 96.3 76 20 162/73 98 08/15/16 00:00 96.8 76 18 142/68 99 08/14/16 23:50 Nasal Cannula 2.00 08/14/16 21:40 Nasal Cannula 2.00 08/14/16 20:15 97 08/14/16 20:00 97.4 77 20 188/79 99 08/14/16 16:00 96.5 85 18 180/80 98 08/14/16 12:00 96.5 70 18 150/69 99 CBC/BMP: 08/15/16 0604 08/15/16 0604 Lab Results Laboratory Tests Test 08/15/16 06:04 White Blood Count 3.9 TH/MM3 Red Blood Count 2.25 MIL/MM3 Hemoglobin 7.9 GM/DL Hematocrit 23.9 % Mean Corpuscular Volume 106.2 FL Mean Corpuscular Hemoglobin 35.2 PG Mean Corpuscular Hemoglobin 33.1 % Concent Red Cell Distribution Width 23.4 % Platelet Count 23 TH/MM3 Mean Platelet Volume 9.0 FL Neutrophils (%) (Auto) 61.1 % Lymphocytes (%) (Auto) 20.1 % Monocytes (%) (Auto) 16.2 % Eosinophils (%) (Auto) 1.3 % Basophils (%) (Auto) 1.3 % Neutrophils # (Auto) 2.4 TH/MM3 Lymphocytes # (Auto) 0.8 TH/MM3 Monocytes # (Auto) 0.6 TH/MM3 Eosinophils # (Auto) 0.1 TH/MM3 Basophils # (Auto) 0.1 TH/MM3 CBC Comment AUTO DIFF Sodium Level 138 MEQ/L Potassium Level 3.6 MEQ/L Chloride Level 108 MEQ/L Carbon Dioxide Level 24.7 MEQ/L Anion Gap 5 MEQ/L Blood Urea Nitrogen 6 MG/DL Creatinine 0.61 MG/DL Estimat Glomerular Filtration 139 ML/MIN Rate Random Glucose 156 MG/DL Calcium Level 7.3 MG/DL Protein Corrected Calcium 7.8 MG/DL Total Bilirubin 9.4 MG/DL Aspartate Amino Transf 97 U/L (AST/SGOT) Alanine Aminotransferase 39 U/L (ALT/SGPT) Alkaline Phosphatase 79 U/L Total Protein 6.2 GM/DL Albumin 1.5 GM/DL Physical Exam General General Appearance: Well Developed, No Acute Distress, Comfortable Eyes Eye Exam: Pupils Equal, Pupils Reactive, Sclera White, Extraocular Movement Intact Throat Throat Exam: Oral Mucosa [place] & Moist, Oral Pharynx Normal Neck Neck Exam: Neck Supple, Trachea Midline Pulmonary Resp Exam: Clear Bilaterally, Breath Sounds Equal, No Distress Cardiology CV Exam: Regular, Normal Sinus Rhythm Gastrointestinal/Abdomen GI Exam: Soft, Non-Tender, Bowel Sounds Present Musculoskeletal MS Exam: Normal Tone, Unable to Ambulate MS Remarks swelling and bruises right upper extremity. Integumentary Skin Exam: Warm, Dry Skin Remarks Multiple Bruises right upper extremity and chest. yellow discoloration of skin and conjuctiva. Extremeties Extremities Exam: Moderate Edema Neurologic Neuro Exam: Alert, Awake, Moving All Extremities Neuro Remarks confused. VTE Prophylaxis VTE Prophylaxis Device: SCDs PUD Prophylasis PUD Prophylaxis: Protonix Assessment/Plan Assessment/Plan ASSESSMENT/PLAN This is 50-year-old male who came to the ER diagnosed with status post fall secondary to balance problem, secondary to the left acoustic neuroma removed and Alcohol intoxication causing multiple large bruises. Need to check the right upper extremity frequently for compartment syndrome, Vascular surgery input noted. Keep the right upper extremity elevated and frequently check neurovascular status. Acute anemia secondary to acute bleed in the right upper extremity. We will monitor H&H and s/p packed RBC blood transfusion. Low platelets secondary to alcoholic liver disease. Hematology input noted, s/p platelet transfusion. Hyponatremia. The patient is on normal saline. We will monitor, improving...better. Hypocalcemia. The patient is status post calcium gluconate. High LFTs secondary to alcoholic liver disease. GI input noted. Further recommendation per GI. High lipase. The patient denies any abdominal pain. Alcohol abuse/Intoxication. The patient's alcohol level was 258. The patient advised to stop drinking alcohol. The patient is on DT prophylaxis, thiamine, folic acid and Librium.. Coagulopathy, INR was 1.9, secondary to alcohol liver disease. Generalized weakness secondary to multiple factor as dictated above. History of left acoustic neuroma status post removal, the patient has a balance problem DVT prophylaxis, SCD's. GI prophylaxis, Protonix. Altered mental status hepatic encephalopathy ( Ammonia level 78 ) and DT Poor prognosis with advance liver disease. Hypokalemia resolved Check CBC with diff CMP in Ammonia level and Lipase in AM. We are going to manage the patient on a daily basis and make recommendations on a daily basis. Ramiro Perez MD Aug 15, 2016 09:29
[2016-08-15 09:51] LABS: BANDS 16 % (0-6); BLASTS 1 % (0-0); CORRECTED NUCLEATED RBC 1 /100 WBC (0-0); MYELOCYTES 2 % (0-0); NEUTROPHIL # MANUAL DIFF 2.4 TH/MM3 (1.8-7.7); PLATELET ESTIMATE SMEAR LOW (NORMAL); PLATELET MORPHOLOGY NORMAL (NORMAL); POLYS (SEG NEUTROPHILS) 43 % (16-70); SCAN/DIFF FINAL DIFF MANUAL; TOXIC GRANULATION 2+ (NORMAL); WBC DIFF SAMPLE 100
[2016-08-15 10:39] LABS: INTERNATIONAL NORMALIZED RATIO 1.9 RATIO
[2016-08-15 10:46] LABS: APTT (PATIENT) 41.1 SEC (24.3-30.1); PROTHROMBIN TIME - PATIENT 21.8 SEC (9.8-11.6)
--- NOTE | 2016-08-15 13:04 | PD.ONC.PN ---
Subjective Subjective Remarks Afebrile overnight. Patient sleeping on approach and is lethargic when awakened. Understands he is at the hospital, but cannot recall the date. No reported bleeding. Objective Data Date Time Temp Pulse Resp B/P Pulse Ox O2 Delivery O2 Flow Rate FiO2 08/15/16 12:00 96.4 67 18 134/61 96 08/15/16 09:30 65 08/15/16 09:30 Nasal Cannula 2.00 08/15/16 08:00 73 08/15/16 08:00 95.3 69 20 120/64 99 08/15/16 04:15 96.3 76 20 162/73 98 08/15/16 00:00 96.8 76 18 142/68 99 08/14/16 23:50 Nasal Cannula 2.00 08/14/16 21:40 Nasal Cannula 2.00 08/14/16 20:15 97 08/14/16 20:00 97.4 77 20 188/79 99 08/14/16 16:00 96.5 85 18 180/80 98 08/15/16 08/15/16 08/15/16 07:00 15:00 23:00 Intake Total 1012 ml Output Total 200 ml Balance 812 ml Result Diagram: 08/15/16 0604 08/15/16 0604 Laboratory Results Laboratory Tests Test 08/15/16 08/15/16 06:04 10:06 White Blood Count 3.9 TH/MM3 Red Blood Count 2.25 MIL/MM3 Hemoglobin 7.9 GM/DL Hematocrit 23.9 % Mean Corpuscular Volume 106.2 FL Mean Corpuscular Hemoglobin 35.2 PG Mean Corpuscular Hemoglobin 33.1 % Concent Red Cell Distribution Width 23.4 % Platelet Count 23 TH/MM3 Mean Platelet Volume 9.0 FL Neutrophils (%) (Auto) 61.1 % Lymphocytes (%) (Auto) 20.1 % Monocytes (%) (Auto) 16.2 % Eosinophils (%) (Auto) 1.3 % Basophils (%) (Auto) 1.3 % Neutrophils # (Auto) 2.4 TH/MM3 Lymphocytes # (Auto) 0.8 TH/MM3 Monocytes # (Auto) 0.6 TH/MM3 Eosinophils # (Auto) 0.1 TH/MM3 Basophils # (Auto) 0.1 TH/MM3 CBC Comment AUTO DIFF Differential Total Cells 100 Counted Neutrophils % (Manual) 43 % Band Neutrophils % 16 % Lymphocytes % 31 % Monocytes % 7 % Neutrophils # (Manual) 2.4 TH/MM3 Myelocytes 2 % Nucleated Red Blood Cells 1 /100 WBC Differential Comment FINAL DIFF MANUAL Blastocytes 1 % Toxic Granulation 2+ Platelet Estimate LOW Platelet Morphology Comment NORMAL Sodium Level 138 MEQ/L Potassium Level 3.6 MEQ/L Chloride Level 108 MEQ/L Carbon Dioxide Level 24.7 MEQ/L Anion Gap 5 MEQ/L Blood Urea Nitrogen 6 MG/DL Creatinine 0.61 MG/DL Estimat Glomerular Filtration 139 ML/MIN Rate Random Glucose 156 MG/DL Calcium Level 7.3 MG/DL Protein Corrected Calcium 7.8 MG/DL Total Bilirubin 9.4 MG/DL Aspartate Amino Transf 97 U/L (AST/SGOT) Alanine Aminotransferase 39 U/L (ALT/SGPT) Alkaline Phosphatase 79 U/L Total Protein 6.2 GM/DL Albumin 1.5 GM/DL Prothrombin Time 21.8 SEC Prothromb Time International 1.9 RATIO Ratio Activated Partial 41.1 SEC Thromboplast Time Fibrinogen 112 mg/dL Administered Medications Medications (Trade) Dose Ordered Sig/Ivan Route PRN Reason Start Time Stop Time Status Last Admin Dose Admin Sodium Chloride (NS Flush) 2 ml BID IV FLUSH 08/08/16 09:00 08/13/16 08:38 Haloperidol Lactate 2 mg 2 mg Q15M PRN IM SEE LABEL COMMENTS 08/07/16 22:45 08/10/16 16:01 Dextrose/Sodium Chloride (D5W-NS 1000 ml Inj) 1,000 ml @ 70 mls/hr [id number] IV 08/07/16 23:00 08/15/16 08:57 Clonidine (Catapres) 0.2 mg BID PO 08/08/16 09:00 08/15/16 09:20 Acetaminophen/ Hydrocodone Bitart ([place] 7.5-325 Mg) 1 tab Q4H PRN PO PAIN 08/08/16 09:00 08/13/16 22:43 Folic Acid (Folate) 1 mg DAILY PO 08/09/16 09:00 08/15/16 09:20 Thiamine HCl (Vitamin B1) 100 mg DAILY PO 08/09/16 09:00 08/15/16 09:20 Morphine Sulfate (Morphine Inj) 2 mg Q6H PRN IV PUSH PAIN 1-10 08/08/16 14:30 08/15/16 09:19 Pantoprazole Sodium (Protonix Inj) 40 mg Q12H IV PUSH 08/09/16 09:30 08/15/16 09:20 Pentoxifylline (TRENtal SR) 400 mg Q8HR PO 08/09/16 14:00 08/14/16 15:08 Chlordiazepoxide (Librium) 50 mg QID PO 08/10/16 13:00 08/15/16 09:20 Rifaximin (Xifaxan) 550 mg BID PO 08/10/16 21:00 08/15/16 09:20 Lactulose (Lactulose Liq) 30 ml QID PO 08/11/16 13:00 08/15/16 09:19 Calcium Carbonate (Tums Chew) 500 mg BID PO 08/12/16 09:00 08/15/16 09:20 Objective Remarks GENERAL: lethargic middle aged male, lying in bed sleeping SKIN: Warm and dry. HEAD: Normocephalic. EYES: No injection or drainage. NECK: Supple, trachea midline. CARDIOVASCULAR: Regular rate and rhythm RESPIRATORY: Breath sounds equal bilaterally. No accessory muscle use. GASTROINTESTINAL: Abdomen soft, non-tender, nondistended. EXTREMITIES: No cyanosis. improving ecchymoses and edema in RUE NEURO: lethargic. oriented to self and place. Assessment/Plan Problem List: (1) Thrombocytopenia Status: Chronic Plan: --is acute on chronic. --underlying thrombocytopenia due to cirrhosis and splenomegaly. (2) Anemia Status: Acute Plan: --multifactorial from bleeding and bone marrow suppression due to alcohol. --can also have vitamin deficiency given his history of gastric bypass surgery. (3) Coagulopathy Status: Acute Plan: -- due to liver disease from alcohol use. -s/p cryo and FFP Assessment 50y/o male admitted to [facility] [place]. Hematology consulted for thrombocytopenia and anemia. history of alcohol abuse and cirrhosis with portal hypertension Gastric bypass surgery, cholecystectomy. Plan 1. hgb drop from 9.4 to 7.9 today. will check stool for occult blood and recheck H/H this afternoon. 2. monitor CBC, coags--will transfuse cryo for fibrinogen <100 or bleeding. Attending Statement The exam, history, and the medical decision-making described in the above note were completed with the assistance of the mid-level provider. I reviewed and agree with the findings presented. I attest that I had a [id number] encounter with the patient on the same day, and personally performed and documented my assessment and findings in the medical record. No active bleeding noted. Hgb stable. Monitor CBC and coags. Will transfuse cryoprecipitate if fibrinogen <100 or any evidence of bleeding. Radha Wright Aug 15, 2016 13:04 Ronni Casarez MD Aug 15, 2016 18:01
--- NOTE | 2016-08-15 14:06 | HHI.GIFU ---
Subjective Remarks Pt laying in bed, being fed by aide. Pt mumbles incoherently. Denies abdominal pain, nausea, vomiting. Did not contribute further. (Maria Luz Sims) Objective Vitals I&O Vital Signs Date Time Temp Pulse Resp B/P Pulse Ox O2 Delivery O2 Flow Rate FiO2 08/15/16 12:00 96.4 67 18 134/61 96 08/15/16 09:30 65 08/15/16 09:30 Nasal Cannula 2.00 08/15/16 08:00 73 08/15/16 08:00 95.3 69 20 120/64 99 08/15/16 04:15 96.3 76 20 162/73 98 08/15/16 00:00 96.8 76 18 142/68 99 08/14/16 23:50 Nasal Cannula 2.00 08/14/16 21:40 Nasal Cannula 2.00 08/14/16 20:15 97 08/14/16 20:00 97.4 77 20 188/79 99 08/14/16 16:00 96.5 85 18 180/80 98 I/O 08/14/16 08/14/16 08/14/16 08/15/16 08/15/16 08/15/16 07:00 15:00 23:00 07:00 15:00 23:00 Intake Total 480 ml 480 ml 1012 ml Output Total 575 ml 650 ml 400 ml 200 ml Balance -95 ml -170 ml -400 ml 812 ml Intake Oral 480 ml 480 ml IV Total 1012 ml Output Urine Total 575 ml 650 ml 400 ml 200 ml Laboratory Laboratory Tests Test 08/15/16 08/15/16 06:04 10:06 White Blood Count 3.9 Red Blood Count 2.25 Hemoglobin 7.9 Hematocrit 23.9 Mean Corpuscular Volume 106.2 Mean Corpuscular Hemoglobin 35.2 Mean Corpuscular Hemoglobin 33.1 Concent Red Cell Distribution Width 23.4 Platelet Count 23 Mean Platelet Volume 9.0 Neutrophils (%) (Auto) 61.1 Lymphocytes (%) (Auto) 20.1 Monocytes (%) (Auto) 16.2 Eosinophils (%) (Auto) 1.3 Basophils (%) (Auto) 1.3 Neutrophils # (Auto) 2.4 Lymphocytes # (Auto) 0.8 Monocytes # (Auto) 0.6 Eosinophils # (Auto) 0.1 Basophils # (Auto) 0.1 CBC Comment AUTO DIFF Differential Total Cells 100 Counted Neutrophils % (Manual) 43 Band Neutrophils % 16 Lymphocytes % 31 Monocytes % 7 Neutrophils # (Manual) 2.4 Myelocytes 2 Nucleated Red Blood Cells 1 Differential Comment FINAL DIFF MANUAL Blastocytes 1 Toxic Granulation 2+ Platelet Estimate LOW Platelet Morphology Comment NORMAL Sodium Level 138 Potassium Level 3.6 Chloride Level 108 Carbon Dioxide Level 24.7 Anion Gap 5 Blood Urea Nitrogen 6 Creatinine 0.61 Estimat Glomerular Filtration 139 Rate Random Glucose 156 Calcium Level 7.3 Protein Corrected Calcium 7.8 Total Bilirubin 9.4 Aspartate Amino Transf 97 (AST/SGOT) Alanine Aminotransferase 39 (ALT/SGPT) Alkaline Phosphatase 79 Total Protein 6.2 Albumin 1.5 Prothrombin Time 21.8 Prothromb Time International 1.9 Ratio Activated Partial 41.1 Thromboplast Time Fibrinogen 112 Imaging Last Impressions Upper Extremity Ultrasound 08/08/16 0000 Signed Impressions: Service Date/Time: Monday, August 08, 2016 10:34 - CONCLUSION: Soft tissue swelling. Otherwise negative without DVT. Kishor Kim MD Physical Exam HEENT: Multiple ecchymotic areas to face, eyes appear jaundiced CHEST: CTA CARDIAC: RRR ABDOMEN: Soft, obese; nontender; bowel sounds are present in all four quadrants. EXTREMITIES: Significant edema and ecchymosis to RUE- + pulse SKIN: jaundice, Significant bruising- especially to face and UE FOURTH HAND: lethargic (Maria Luz Sims [employer]) Assessment and Plan Plan ASSESSMENT: - Anemia. No obvious active GI bleeding. Pt reports significant nose bleed when he originally fell, but denies any hematemesis, melena, or hematochezia. The nurse denies any obvious active bleeding. Of note, CT on 08/06 mentioned probable right flank hematoma and he has significant ecchymosis to RUE. S/P 2 units of PRBC. Of note, has hx of gastric bypass. HH dropped to 7.9, 23.9 from yesterday 9.4/27.2. HH rck & FOBT this afternoon, Consider repeat CT to evaluate hematoma. No obvious active GI bleeding. - Thrombocytopenia, Coagulopathy. Plt 23 today. Labs on 08/15 with PT 21.8, INR 1.9, APTT 41.1, Fibrinogen 112. S/P 2 units FFP, 2 units of Plt 2 units, 1 unit cryoprecipitate. - Elevated LFTs, Alcoholic Hepatitis on underlying liver cirrhosis. trending downward. T. Bili 9.4, AST 97, ALT 39, Alk Phosph 79 ammonia 79 DF 57.4. MELD 23. Pentoxifylline - Elevated Lipase. No n/v, abdominal pain with this. No evidence of pancreatitis on CT scan on 08/06. Lipase improved. - AMS, likely combination of hepatic encephalopathy and DTs. Ammonia 79. Xifaxan/Lactulose QID. - GERD. PPI - RUE Edema/Ecchymosis. S/P CVT eval. No compartment syndrome. - Probable right flank hematoma. CT 08/06 probable 2.6 cm hematoma - Multiple electrolyte abnormalities. per primary - HTN, MAHENDRA, Depression. per primary - ETOH abuse. Librium per patient. PLAN: - Low salt diet - Cont. Xifaxan - Lactulose QID - Cont. PPI - Cont. Pentoxifylline - Monitor labs - await FOBT & repeat HH this afternoon - Consider EGD when more stable - Consider repeat CT scan if worsening anemia to f/u on hematoma - Further recommendations as the case develops - Pt seen and examined by Dr. Moreno and myself and this note is written on his behalf (Maria Luz Sims) Physician Comments Patient seen and examined Agree with above Continue with current supportive care Monitor labs (Max Moreno MD) Maria Luz Sims Aug 15, 2016 14:06 Max Moreno MD Aug 15, 2016 21:07
[2016-08-15 14:53] LABS: HEMATOCRIT 27.9 % (39.0-51.0)
[2016-08-15 14:55] LABS: REVIEW FLAG FINAL
[2016-08-16] VITALS (12 sets, daily range): BP systolic 127–195; BP diastolic 61–84; PULSE 75–88; RESP 20–27; TEMP 95.5–99.1; O2SAT 94–98
[2016-08-16] MEDS: PENTOXIFYLLINE 400 MG CONTROLLED RELEASE TAB PO SCH ×3 (06:06→21:00)
[2016-08-16 06:18] LABS: AUTOMATED NEUTROPHIL # 5.7 TH/MM3 (1.8-7.7); BASOPHIL % 0.5 % (0.0-2.0); EOSINOPHIL % 0.3 % (0.0-4.0); HEMATOCRIT 25.8 % (39.0-51.0); LYMPH % 13.7 % (9.0-44.0); MEAN CELL VOLUME 105.9 FL (80.0-100.0); MEAN CORPUSCULAR HEMOGLOBIN 36.1 PG (27.0-34.0); MEAN CORPUSCULAR HGB CONC 34.1 % (32.0-36.0); MONO % 11.2 % (0.0-8.0); NEUT % 74.3 % (16.0-70.0); PLATELET COUNT 28 TH/MM3 (150-450); RED BLOOD COUNT 2.43 MIL/MM3 (4.50-5.90); RED CELL DISTRIBUTION WIDTH 22.9 % (11.6-17.2); WHITE BLOOD COUNT 7.6 TH/MM3 (4.0-11.0)
[2016-08-16 06:23] LABS: HEMO FLAGS AUTO DIFF
[2016-08-16 06:35] LABS: APTT (PATIENT) 41.6 SEC (24.3-30.1); PROTHROMBIN TIME - PATIENT 22.3 SEC (9.8-11.6)
[2016-08-16 06:52] LABS: ALKALINE PHOSPHATASE 82 U/L (45-117); ALT (GPT) 44 U/L (12-78); ANION GAP 9 MEQ/L (5-15); AST (GOT) 92 U/L (15-37); BLOOD UREA NITROGEN 8 MG/DL (7-18); CHLORIDE 108 MEQ/L (98-107); GLOMERULAR FILTRATION RATE 102 ML/MIN (>89); POTASSIUM 3.5 MEQ/L (3.5-5.1); SODIUM (NA) 139 MEQ/L (136-145); TOTAL BILIRUBIN ADULT 10.5 MG/DL (0.2-1.0)
[2016-08-16 08:05] LABS: BANDS 23 % (0-6); EOSINOPHILS 2 % (0-4); METAMYELOCYTES 1 % (0-1); NEUTROPHIL # MANUAL DIFF 6.7 TH/MM3 (1.8-7.7); PLATELET ESTIMATE SMEAR LOW (NORMAL); PLATELET MORPHOLOGY NORMAL (NORMAL); POLYS (SEG NEUTROPHILS) 64 % (16-70); SCAN/DIFF FINAL DIFF MANUAL; WBC DIFF SAMPLE 100
--- NOTE | 2016-08-16 08:09 | PD.ONC.PN ---
Subjective Subjective Remarks More awake, no bleeding reported. Objective Data Date Time Temp Pulse Resp B/P Pulse Ox O2 Delivery O2 Flow Rate FiO2 08/16/16 04:00 98.5 79 20 176/72 98 08/16/16 00:00 99.1 88 20 175/76 96 08/15/16 20:30 99.1 92 20 192/86 94 08/15/16 16:00 98.9 93 28 154/90 98 08/15/16 12:00 96.4 67 18 134/61 96 08/15/16 09:30 65 08/15/16 09:30 Nasal Cannula 2.00 08/16/16 08/16/16 08/16/16 07:00 15:00 23:00 Output Total 150 ml Balance -150 ml Result Diagram: 08/16/16 0556 08/16/16 0556 Laboratory Results Laboratory Tests Test 08/15/16 08/15/16 08/16/16 10:06 14:06 05:56 Prothrombin Time 21.8 SEC 22.3 SEC Prothromb Time International 1.9 RATIO 2.0 RATIO Ratio Activated Partial 41.1 SEC 41.6 SEC Thromboplast Time Fibrinogen 112 mg/dL 117 mg/dL Hemoglobin 9.3 GM/DL 8.8 GM/DL Hematocrit 27.9 % 25.8 % White Blood Count 7.6 TH/MM3 Red Blood Count 2.43 MIL/MM3 Mean Corpuscular Volume 105.9 FL Mean Corpuscular Hemoglobin 36.1 PG Mean Corpuscular Hemoglobin 34.1 % Concent Red Cell Distribution Width 22.9 % Platelet Count 28 TH/MM3 Mean Platelet Volume 8.5 FL Neutrophils (%) (Auto) 74.3 % Lymphocytes (%) (Auto) 13.7 % Monocytes (%) (Auto) 11.2 % Eosinophils (%) (Auto) 0.3 % Basophils (%) (Auto) 0.5 % Neutrophils # (Auto) 5.7 TH/MM3 Lymphocytes # (Auto) 1.0 TH/MM3 Monocytes # (Auto) 0.9 TH/MM3 Eosinophils # (Auto) 0.0 TH/MM3 Basophils # (Auto) 0.0 TH/MM3 CBC Comment AUTO DIFF Differential Total Cells 100 Counted Neutrophils % (Manual) 64 % Band Neutrophils % 23 % Lymphocytes % 2 % Monocytes % 8 % Eosinophils % 2 % Neutrophils # (Manual) 6.7 TH/MM3 Metamyelocytes 1 % Differential Comment FINAL DIFF MANUAL Platelet Estimate LOW Platelet Morphology Comment NORMAL Sodium Level 139 MEQ/L Potassium Level 3.5 MEQ/L Chloride Level 108 MEQ/L Carbon Dioxide Level 22.0 MEQ/L Anion Gap 9 MEQ/L Blood Urea Nitrogen 8 MG/DL Creatinine 0.80 MG/DL Estimat Glomerular Filtration 102 ML/MIN Rate Random Glucose 181 MG/DL Calcium Level 7.5 MG/DL Total Bilirubin 10.5 MG/DL Aspartate Amino Transf 92 U/L (AST/SGOT) Alanine Aminotransferase 44 U/L (ALT/SGPT) Alkaline Phosphatase 82 U/L Ammonia 23 MCMOL/L Total Protein 7.0 GM/DL Albumin 1.6 GM/DL Lipase 873 U/L Administered Medications Medications (Trade) Dose Ordered Sig/Ivan Route PRN Reason Start Time Stop Time Status Last Admin Dose Admin Sodium Chloride (NS Flush) 2 ml BID IV FLUSH 08/08/16 09:00 08/15/16 21:07 Haloperidol Lactate 2 mg 2 mg Q15M PRN IM SEE LABEL COMMENTS 08/07/16 22:45 08/10/16 16:01 Dextrose/Sodium Chloride (D5W-NS 1000 ml Inj) 1,000 ml @ 70 mls/hr [id number] IV 08/07/16 23:00 08/15/16 08:57 Clonidine (Catapres) 0.2 mg BID PO 08/08/16 09:00 08/15/16 21:07 Acetaminophen/ Hydrocodone Bitart ([place] 7.5-325 Mg) 1 tab Q4H PRN PO PAIN 08/08/16 09:00 08/13/16 22:43 Folic Acid (Folate) 1 mg DAILY PO 08/09/16 09:00 08/15/16 09:20 Thiamine HCl (Vitamin B1) 100 mg DAILY PO 08/09/16 09:00 08/15/16 09:20 Morphine Sulfate (Morphine Inj) 2 mg Q6H PRN IV PUSH PAIN 1-10 08/08/16 14:30 08/15/16 09:19 Pantoprazole Sodium (Protonix Inj) 40 mg Q12H IV PUSH 08/09/16 09:30 08/15/16 21:07 Pentoxifylline (TRENtal SR) 400 mg Q8HR PO 08/09/16 14:00 08/16/16 06:06 Chlordiazepoxide (Librium) 50 mg QID PO 08/10/16 13:00 08/15/16 21:06 Rifaximin (Xifaxan) 550 mg BID PO 08/10/16 21:00 08/15/16 21:06 Lactulose (Lactulose Liq) 30 ml QID PO 08/11/16 13:00 08/15/16 21:06 Calcium Carbonate (Tums Chew) 500 mg BID PO 08/12/16 09:00 08/15/16 21:07 Objective Remarks GENERAL: Well-nourished, well-developed patient. More awake but still lethargic SKIN: Warm and dry. HEAD: Normocephalic. Facial ecchymosis resolving. EYES: No scleral icterus. No injection or drainage. NECK: Supple, trachea midline. No JVD or lymphadenopathy. LYMPHATIC: No adenopathy. CARDIOVASCULAR: Regular rate and rhythm without murmurs. RESPIRATORY: Breath sounds equal bilaterally. No accessory muscle use. GASTROINTESTINAL: Abdomen soft, non-tender, nondistended. EXTREMITIES: No cyanosis, or edema. RUE edema improving, ecchymosis resolving. MUSCULOSKELETAL: Adequate muscle tone. NEUROLOGICAL: No obvious focal deficit. Awake, alert, and oriented x3. PSYCHIATRIC: Appropriate mood and affect; insight and judgment normal. Assessment/Plan Problem List: (1) Thrombocytopenia Status: Chronic Plan: --is acute on chronic. --underlying thrombocytopenia due to cirrhosis and splenomegaly. 08/16 Platelet stable. (2) Anemia Status: Acute Plan: --multifactorial from bleeding and bone marrow suppression due to alcohol. --can also have vitamin deficiency given his history of gastric bypass surgery. 08/16 Hgb stable. (3) Coagulopathy Status: Acute Plan: -- due to liver disease from alcohol use. -s/p cryo and FFP 08/16 Fibrinogen is still low but no bleeding noted. Assessment 50y/o male admitted to [facility] [place]. Hematology consulted for thrombocytopenia and anemia. history of alcohol abuse and cirrhosis with portal hypertension Gastric bypass surgery, cholecystectomy. Plan 1. monitor CBC, coags--will transfuse cryo for fibrinogen <100 or bleeding. Ronni Casarez MD Aug 16, 2016 08:09
[2016-08-16] MEDS: THIAMINE HCL 100 MG TAB PO SCH (08:13)
[2016-08-16] MEDS: CALCIUM CARBONATE 500 MG CHEWABLE TAB PO SCH ×2 (08:13→21:00)
[2016-08-16] MEDS: RIFAXIMIN 550 MG TAB PO SCH ×2 (08:13→21:09)
[2016-08-16] MEDS: FOLIC ACID 1 MG TAB PO SCH (08:13)
[2016-08-16] MEDS: LACTULOSE SYRUP 20 GM/30 ML CUP PO SCH ×4 (08:13→21:00)
[2016-08-16] MEDS: chlordiazePOXIDE 25 MG CAP PO SCH ×2 (08:13→12:20)
[2016-08-16] MEDS: PANTOPRAZOLE SODIUM 40 MG VIAL IV PUSH SCH ×2 (08:13→21:00)
[2016-08-16] MEDS: cloNIDine HCL 0.2 MG TAB PO SCH ×2 (08:13→21:00)
[2016-08-16] MEDS: SODIUM CHLORIDE 0.9% FLUSH 10 ML FLUSH IV FLUSH SCH ×2 (08:15→21:01)
--- NOTE | 2016-08-16 11:06 | HHI.PR ---
Subjective History of Present Illness Patient confused and mumble agitation better off restraints was in DT on librium and also thiamine and folic acid. have jaundice right hand swelling better, no Acute Issue low potassium resolved.. Low sodium better. Need endoscopy when stable..d/w RN Erickson. check chest x- ray and start Lasix 40 mg PO Daily. d/w daughter yesterday over the phone about critical condition of patient. Review of Systems Constitutional Constitutional Remarks ROS Unable to obtain because patient not communicating. GI/Abdomen GI/Abdomen Remarks Jaundice, Abdominal distention. Integumentary Skin Remarks Multiple right arm and chest Bruises Neurologic Neurologic: Confused Vitals/Results Intake & Output 08/15/16 08/15/16 08/16/16 15:00 23:00 07:00 Intake Total 180 ml Output Total 100 ml 100 ml 150 ml Balance 80 ml -100 ml -150 ml Intake Oral 180 ml Output Urine Total 100 ml 100 ml 150 ml # Bowel Movements 1 1 Vital Signs Vital Signs Date Time Temp Pulse Resp B/P Pulse Ox O2 Delivery O2 Flow Rate FiO2 08/16/16 08:26 Nasal Cannula 2.00 08/16/16 08:00 87 08/16/16 07:50 98.0 87 20 195/84 94 08/16/16 04:00 98.5 79 20 176/72 98 08/16/16 00:00 99.1 88 20 175/76 96 08/15/16 21:02 Nasal Cannula 2.00 08/15/16 20:30 99.1 92 20 192/86 94 08/15/16 16:00 98.9 93 28 154/90 98 08/15/16 12:00 96.4 67 18 134/61 96 CBC/BMP: 08/16/16 0556 08/16/16 0556 Lab Results Laboratory Tests Test 08/15/16 08/16/16 14:06 05:56 Hemoglobin 9.3 GM/DL 8.8 GM/DL Hematocrit 27.9 % 25.8 % White Blood Count 7.6 TH/MM3 Red Blood Count 2.43 MIL/MM3 Mean Corpuscular Volume 105.9 FL Mean Corpuscular Hemoglobin 36.1 PG Mean Corpuscular Hemoglobin 34.1 % Concent Red Cell Distribution Width 22.9 % Platelet Count 28 TH/MM3 Mean Platelet Volume 8.5 FL Neutrophils (%) (Auto) 74.3 % Lymphocytes (%) (Auto) 13.7 % Monocytes (%) (Auto) 11.2 % Eosinophils (%) (Auto) 0.3 % Basophils (%) (Auto) 0.5 % Neutrophils # (Auto) 5.7 TH/MM3 Lymphocytes # (Auto) 1.0 TH/MM3 Monocytes # (Auto) 0.9 TH/MM3 Eosinophils # (Auto) 0.0 TH/MM3 Basophils # (Auto) 0.0 TH/MM3 CBC Comment AUTO DIFF Differential Total Cells 100 Counted Neutrophils % (Manual) 64 % Band Neutrophils % 23 % Lymphocytes % 2 % Monocytes % 8 % Eosinophils % 2 % Neutrophils # (Manual) 6.7 TH/MM3 Metamyelocytes 1 % Differential Comment FINAL DIFF MANUAL Platelet Estimate LOW Platelet Morphology Comment NORMAL Prothrombin Time 22.3 SEC Prothromb Time International 2.0 RATIO Ratio Activated Partial 41.6 SEC Thromboplast Time Fibrinogen 117 mg/dL Sodium Level 139 MEQ/L Potassium Level 3.5 MEQ/L Chloride Level 108 MEQ/L Carbon Dioxide Level 22.0 MEQ/L Anion Gap 9 MEQ/L Blood Urea Nitrogen 8 MG/DL Creatinine 0.80 MG/DL Estimat Glomerular Filtration 102 ML/MIN Rate Random Glucose 181 MG/DL Calcium Level 7.5 MG/DL Total Bilirubin 10.5 MG/DL Aspartate Amino Transf 92 U/L (AST/SGOT) Alanine Aminotransferase 44 U/L (ALT/SGPT) Alkaline Phosphatase 82 U/L Ammonia 23 MCMOL/L Total Protein 7.0 GM/DL Albumin 1.6 GM/DL Lipase 873 U/L Physical Exam General General Appearance: No Acute Distress, Comfortable Eyes Eye Exam: Pupils Equal, Pupils Reactive, Sclera White, Extraocular Movement Intact Throat Throat Exam: Oral Mucosa [place] & Moist, Oral Pharynx Normal Neck Neck Exam: Neck Supple, Trachea Midline Pulmonary Resp Exam: Clear Bilaterally, Breath Sounds Equal, No Distress Cardiology CV Exam: Regular, Normal Sinus Rhythm Gastrointestinal/Abdomen GI Exam: Soft, Non-Tender, Bowel Sounds Present Musculoskeletal MS Exam: Normal Tone, Unable to Ambulate MS Remarks swelling and bruises right upper extremity. Integumentary Skin Exam: Warm, Dry Skin Remarks Multiple Bruises right upper extremity and chest. yellow discoloration of skin and conjuctiva. Extremeties Extremities Exam: Moderate Edema Neurologic Neuro Exam: Alert, Awake, Moving All Extremities Neuro Remarks confused. VTE Prophylaxis VTE Prophylaxis Device: SCDs PUD Prophylasis PUD Prophylaxis: Protonix Assessment/Plan Assessment/Plan ASSESSMENT/PLAN This is 50-year-old male who came to the ER diagnosed with status post fall secondary to balance problem, secondary to the left acoustic neuroma removed and Alcohol intoxication causing multiple large bruises. Need to check the right upper extremity frequently for compartment syndrome, Vascular surgery input noted. Keep the right upper extremity elevated and frequently check neurovascular status. Acute anemia secondary to acute bleed in the right upper extremity. We will monitor H&H and s/p packed RBC blood transfusion. Low platelets secondary to alcoholic liver disease. Hematology input noted, s/p platelet transfusion. Hyponatremia. The patient is on normal saline. We will monitor, improving...better. Hypocalcemia. The patient is status post calcium gluconate. High LFTs secondary to alcoholic liver disease. GI input noted. Further recommendation per GI. High lipase. Alcohol abuse/Intoxication. The patient's alcohol level was 258. The patient advised to stop drinking alcohol. The patient is on DT prophylaxis, thiamine, folic acid and Librium.. Coagulopathy, INR was 1.9, secondary to alcohol liver disease. Generalized weakness secondary to multiple factor as dictated above. History of left acoustic neuroma status post removal, the patient has a balance problem DVT prophylaxis, SCD's. GI prophylaxis, Protonix. Altered mental status hepatic encephalopathy and DT Poor prognosis with advance liver disease. Hypokalemia resolved Check CBC with diff CMP in Ammonia level and Lipase in AM. We are going to manage the patient on a daily basis and make recommendations on a daily basis. Discussed Condition with: Patient Ramiro Perez MD Aug 16, 2016 11:06
[2016-08-16] MEDS: FUROSEMIDE 40 MG/4 ML VIAL IV PUSH SCH (12:13)
[2016-08-16] MEDS ORDERED: NALOXONE HCL 0.4 MG/ML AMP IV PUSH ONE (14:15)
[2016-08-16] MEDS ORDERED: FLUMAZENIL 0.5 MG/5 ML VIAL IV PUSH ONE (14:15)
--- NOTE | 2016-08-16 14:46 | RADRPT ---
EXAM DATE/TIME: 08/16/2016 13:59 [facility] COMPARISON: No previous studies available for comparison. INDICATIONS : Cough MEDICAL HISTORY : Hypertension. Cirrhosis. SURGICAL HISTORY : None. ENCOUNTER: Subsequent ACUITY: 2 weeks PAIN SCORE: Non-responsive. LOCATION: Bilateral chest FINDINGS: A single view of the chest demonstrates the lungs to be symmetrically, but under aerated with minimal bibasilar atelectatic changes. No confluent infiltrate or effusion. Accounting for the low lung line s the heart size is still borderline prominent but well compensated there is a nasogastric tube with the tip just past the GE junction. Side port projects over the cardiac silhouette. Tube should probab ly be advanced approximately 10-15 cm further into the stomach. CONCLUSION: 1. Hypoinflation with minimal bibasilar atelectatic changes but no confluent infiltrate. 2. Nasogastric tube with the tip just past the GE junction. This should probably be advanced 10-15 cm further into the stomach. Kishor Kim MD on August 16, 2016 at 14:42 Board Certified Radiologist. This report was verified electronically.
--- NOTE | 2016-08-16 15:05 | PD.CONS ---
[facility] Service Critical Care Medicine Consult Requested By Dr. Perez Reason for Consult Critical care management Primary Care Physician No Primary Care Physician History of Present Illness 50-year-old male. He admission 08/09/2016. Date of consultation 2016. Past medical history includes EtOH abuse, portal hypertension, abdominal ascites, liver cirrhosis, gastroesophageal disease, depression, osteoarthritis hypertension and tobaccoism. Patient is admitted 08/09/2016 after recurrent falls at home. Patient originally presented to the [place] ED complaining of right arm pain after fall. He refuses admission and went home and began to drink again from the bathroom connected up. He is noted to have extreme upper extremity swelling and thrombocytopenia. After admission patient was transferred to [facility] for evaluation for possible compartment syndrome. Patient was evaluated by Dr. Neumann. Negative ultrasound. Adequate pulses. No surgical intervention required. Diabetic doctor to transfuse 2 units PRBCs, 2 pack platelets, 2 FFP and one cryoprecipitate since admission. Secondary to his underlying liver cirrhosis/ disease. E platelet count of 28,000. He was seen by gastroenterology.. Started on Xifaxan for elevated ammonia. Also on pentoxifylline 400 3 times a day for liver disease. Meld score is currently 23. Patient received morphine and Ativan early this morning. Patient was transferred due to altered mental status. Received 0.4 mg Narcan in currently back to baseline mental status. CT head will be ordered along with ABG. Abdominal ultrasound revealed liver ascites, liver cirrhosis Review of Systems ROS Limitations: Altered Mental Status Past Family Social History Allergies: Coded Allergies: Ativan (Verified Allergy, Severe, AGITATION, 08/07/16) Celebrex (Verified Allergy, Severe, Swelling, 08/07/16) Past Medical History Depression Osteoarthritis Hypertension History of alcohol abuse portal Hypertension Abdominal ascites Gastroesophageal reflux disease Liver cirrhosis Past Surgical History Left ear acoustic neuroma Bilateral total knee arthroplasty Cholecystectomy Gastric bypass T& A Perforated colon and gastric ulcer Reported Medications Clonidine 0.2 mg by mouth twice a day Active Ordered Medications Reviewed in EMR Family History Mother and father is not contributory to history of present illness Social History 12 pack beer. 1-4 packs per day tobacco. Physical Exam Vital Signs Vital Signs Date Time Temp Pulse Resp B/P Pulse Ox O2 Delivery O2 Flow Rate FiO2 08/16/16 14:00 98.5 78 27 128/61 96 08/16/16 13:43 98.0 78 20 143/64 95 08/16/16 11:50 96.9 83 20 171/75 95 08/16/16 08:26 Nasal Cannula 2.00 08/16/16 08:00 87 08/16/16 07:50 98.0 87 20 195/84 94 08/16/16 04:00 98.5 79 20 176/72 98 08/16/16 00:00 99.1 88 20 175/76 96 08/15/16 21:02 Nasal Cannula 2.00 08/15/16 20:30 99.1 92 20 192/86 94 08/15/16 16:00 98.9 93 28 154/90 98 Physical Exam GENERAL: 50-year-old male, critically ill currently resting in bed delirious SKIN: Warm and dry. Multiple tattoos on thorax/upper and lower extremities. Significant ecchymoses right upper extremity HEAD: Atraumatic. Normocephalic. EYES: Pupils equal and round about 2 members bilaterally and reactive. + scleral icterus. No injection or drainage. ENT: No nasal bleeding or discharge. Mucous membranes pink and moist. NECK: Trachea midline. No JVD. CARDIOVASCULAR: Regular rate and rhythm. S1, S2. No S4. Without murmur, clicks, gallops or rubs RESPIRATORY: Clear to auscultation. Breath sounds equal bilaterally. GASTROINTESTINAL: Abdomen distented, nontender. Possible right flank hematoma. Hypoactive bowel sounds. Positive succussion splash MUSCULOSKELETAL: Extremities with 1+ lower extremity pitting edema. No obvious deformities. Significant ecchymosis due to right upper extremity trauma/ ecchymosis and edema. NEUROLOGICAL: Awake and alert. No obvious cranial nerve deficits. Motor grossly within normal limits. Five out of 5 muscle strength in the arms and legs. Slurred speech Awake and alert oriented to person, time but not place. Laboratory Laboratory Tests Test 08/16/16 05:56 White Blood Count 7.6 Red Blood Count 2.43 Hemoglobin 8.8 Hematocrit 25.8 Mean Corpuscular Volume 105.9 Mean Corpuscular Hemoglobin 36.1 Mean Corpuscular Hemoglobin 34.1 Concent Red Cell Distribution Width 22.9 Platelet Count 28 Mean Platelet Volume 8.5 Neutrophils (%) (Auto) 74.3 Lymphocytes (%) (Auto) 13.7 Monocytes (%) (Auto) 11.2 Eosinophils (%) (Auto) 0.3 Basophils (%) (Auto) 0.5 Neutrophils # (Auto) 5.7 Lymphocytes # (Auto) 1.0 Monocytes # (Auto) 0.9 Eosinophils # (Auto) 0.0 Basophils # (Auto) 0.0 CBC Comment AUTO DIFF Differential Total Cells 100 Counted Neutrophils % (Manual) 64 Band Neutrophils % 23 Lymphocytes % 2 Monocytes % 8 Eosinophils % 2 Neutrophils # (Manual) 6.7 Metamyelocytes 1 Differential Comment FINAL DIFF MANUAL Platelet Estimate LOW Platelet Morphology Comment NORMAL Prothrombin Time 22.3 Prothromb Time International 2.0 Ratio Activated Partial 41.6 Thromboplast Time Fibrinogen 117 Sodium Level 139 Potassium Level 3.5 Chloride Level 108 Carbon Dioxide Level 22.0 Anion Gap 9 Blood Urea Nitrogen 8 Creatinine 0.80 Estimat Glomerular Filtration 102 Rate Random Glucose 181 Calcium Level 7.5 Total Bilirubin 10.5 Aspartate Amino Transf 92 (AST/SGOT) Alanine Aminotransferase 44 (ALT/SGPT) Alkaline Phosphatase 82 Ammonia 23 Total Protein 7.0 Albumin 1.6 Lipase 873 Result Diagram: 08/16/16 0556 08/16/16 0556 Imaging Last Impressions Chest X-Ray 08/16/16 0000 Signed Impressions: Service Date/Time: Tuesday, August 16, 2016 13:59 - CONCLUSION: 1. Hypoinflation with minimal bibasilar atelectatic changes but no confluent infiltrate. 2. Nasogastric tube with the tip just past the GE junction. This should probably be advanced 10-15 cm further into the stomach. Kishor Kim MD Upper Extremity Ultrasound 08/08/16 0000 Signed Impressions: Service Date/Time: Monday, August 08, 2016 10:34 - CONCLUSION: Soft tissue swelling. Otherwise negative without DVT. Kishor Kim MD Assessment and Plan Assessment and Plan Neuro/Psych: Toxic metabolic encephalopathy EtOH abuse Chronic narcotic use Depression CT head revealed no acute intracranial findings. Left mastoiditis noted. Currently on Librium 25 mg by mouth 3 times a day for EtOH withdrawal. And as needed Switch to oxycodone 5 mg liquid every 6 hours when necessary pain. Ativan/morphine discontinued Received Narcan 0.4 mg IV 1 with resolution of altered mental status CV: History of hypertension Home medications clonidine 0.2 mg by mouth twice a day Currently on D5 normal saline at 70 cc an hour. Current clonidine return for several Resp: Ongoing tobaccoism Nasal cannula to maintain saturations greater than equal to 92% Incentive spirometry awake As needed bronchodilator therapy every 6 hours GI: Elevated lipase Hypoalbuminemia Elevated ammonia level Abdominal ascites Portal hypertension Liver cirrhosis History of perforated colon/gastric ulcer Elevated AST Meld score is currently 23 Currently on Xifaxan 550 twice a day for elevated ammonia. Currently 23 On pentoxifylline 400 mg 3 times a day for underlying liver failure Abdominal ultrasound revealed gross ascites, cirrhotic appearing liver. Non visualization of gallbladder. NG tube is in place. Not ordered by me but will advance 15 cm due to KUB findings Protonix 40 mg IV twice a day : Bowers is not indicated due to gross thrombocytopenia Endo: Sliding scale insulin if indicated to maintain euglycemia Renal: Kidney function currently within normal limits. Follow-up creatinine in a.m. Heme: Macrocytic anemia Thrombocytopenia Low fibrinogen Elevated INR Seen in consultation by Dr. Casarez/hematology - secondary to underlying liver disease Transfuse 2 units PRBCs, 2 packets, 2 FFP and 1 cryoprecipitate since admission Recheck coags/fibrinogen a.m. Currently no active bleeding. ID: Monitor for infection FEN: Hypocalcemia Replace electrolytes as clinically indicated Currently on calcium carbonate 500 twice a day. MSK: PT evaluate and treat Access - Utilize peripheral IV. Central if indicated Prophylaxis - GI - Protonix - DVT - SCD/no pharmacological prophylaxis in light of low platelets Critical Care: The total critical care time was 55 minutes. Time to perform other separately billable procedures was not included in the critical care time. Code Status Full code Discussed Condition With Patient. Care plan discussed and all questions answered. Aj Malcolm MD Aug 16, 2016 15:05
--- NOTE | 2016-08-16 15:41 | RADRPT ---
EXAM DATE/TIME: 08/16/2016 14:38 [facility] COMPARISON: No previous studies available for comparison. INDICATIONS : Abdominal pain. MEDICAL HISTORY : Gastroesophageal reflux disease. Hypertension. Arthritis. Ulcer. SURGICAL HISTORY : Tail bone removal. Left ear surgery. Cholecystectomy. Total knee replacement, left. Total knee replac ement, right. ENCOUNTER: Initial ACUITY: 1 day PAIN SCORE: 4/10 LOCATION: Bilateral abdomen. MEASUREMENTS: LIVER: 21.0 cm length COMMON DUCT: 4 mm RIGHT KIDNEY: 12.4 x 5.3 x 6.6 cm LEFT KIDNEY: 11.5 x 5.0 x 4.8 cm SPLEEN: 16 cm length AORTA: 3.03cm maximal FINDINGS: LIVER: Diffusely increased echotexture without focal lesion or ductal dilatation. Diffuse abdominal ascites. COMMON DUCT: No intraluminal mass or stone visualized. GALLBLADDER: Nonvisualized characteristic of a reported history of cholecystectomy PANCREAS: The visualized portions are within normal limits. RIGHT KIDNEY: No hydronephrosis, stone or mass. LEFT KIDNEY: No hydronephrosis, stone or mass. SPLEEN: No focal lesion. AORTA: Non aneurysmal. IVC: Visualized portions ok. Mid IVC not visualized due to overlying bowel gas. CONCLUSION: 1. Spectrum of findings suggesting cirrhosis with splenomegaly, diffuse hepatic fatty infiltration an d diffuse abdominal ascites. 2. Nonvisualization of the gallbladder characteristic of the reported history of cholecystectomy. Kishor Kim MD on August 16, 2016 at 15:34 Board Certified Radiologist. This report was verified electronically.
--- NOTE | 2016-08-16 16:02 | HHI.GIFU ---
Subjective Remarks Pt resting comfortably in bed, daughter is visiting. Denies abd pain, n/v, bleeding. (Maria Luz Sims) Objective Vitals I&O Vital Signs Date Time Temp Pulse Resp B/P Pulse Ox O2 Delivery O2 Flow Rate FiO2 08/16/16 15:44 95 Nasal Cannula 2.00 08/16/16 14:00 98.5 78 27 128/61 96 08/16/16 13:43 98.0 78 20 143/64 95 08/16/16 11:50 96.9 83 20 171/75 95 08/16/16 08:26 Nasal Cannula 2.00 08/16/16 08:00 87 08/16/16 07:50 98.0 87 20 195/84 94 08/16/16 04:00 98.5 79 20 176/72 98 08/16/16 00:00 99.1 88 20 175/76 96 08/15/16 21:02 Nasal Cannula 2.00 08/15/16 20:30 99.1 92 20 192/86 94 08/15/16 16:00 98.9 93 28 154/90 98 I/O 08/15/16 08/15/16 08/15/16 08/16/16 08/16/16 08/16/16 07:00 15:00 23:00 07:00 15:00 23:00 Intake Total 1012 ml 180 ml Output Total 200 ml 100 ml 100 ml 150 ml Balance 812 ml 80 ml -100 ml -150 ml Intake Oral 180 ml IV Total 1012 ml Output Urine Total 200 ml 100 ml 100 ml 150 ml # Bowel Movements 1 1 Laboratory Laboratory Tests Test 08/16/16 05:56 White Blood Count 7.6 Red Blood Count 2.43 Hemoglobin 8.8 Hematocrit 25.8 Mean Corpuscular Volume 105.9 Mean Corpuscular Hemoglobin 36.1 Mean Corpuscular Hemoglobin 34.1 Concent Red Cell Distribution Width 22.9 Platelet Count 28 Mean Platelet Volume 8.5 Neutrophils (%) (Auto) 74.3 Lymphocytes (%) (Auto) 13.7 Monocytes (%) (Auto) 11.2 Eosinophils (%) (Auto) 0.3 Basophils (%) (Auto) 0.5 Neutrophils # (Auto) 5.7 Lymphocytes # (Auto) 1.0 Monocytes # (Auto) 0.9 Eosinophils # (Auto) 0.0 Basophils # (Auto) 0.0 CBC Comment AUTO DIFF Differential Total Cells 100 Counted Neutrophils % (Manual) 64 Band Neutrophils % 23 Lymphocytes % 2 Monocytes % 8 Eosinophils % 2 Neutrophils # (Manual) 6.7 Metamyelocytes 1 Differential Comment FINAL DIFF MANUAL Platelet Estimate LOW Platelet Morphology Comment NORMAL Prothrombin Time 22.3 Prothromb Time International 2.0 Ratio Activated Partial 41.6 Thromboplast Time Fibrinogen 117 Sodium Level 139 Potassium Level 3.5 Chloride Level 108 Carbon Dioxide Level 22.0 Anion Gap 9 Blood Urea Nitrogen 8 Creatinine 0.80 Estimat Glomerular Filtration 102 Rate Random Glucose 181 Calcium Level 7.5 Total Bilirubin 10.5 Aspartate Amino Transf 92 (AST/SGOT) Alanine Aminotransferase 44 (ALT/SGPT) Alkaline Phosphatase 82 Ammonia 23 Total Protein 7.0 Albumin 1.6 Lipase 873 Date/Time Procedure Status Source Growth 08/16/16 13:35 Stool Occult Blood (IZABEL) Received Stool Stool Pending Imaging Last Impressions Chest X-Ray 08/16/16 0000 Signed Impressions: Service Date/Time: Tuesday, August 16, 2016 13:59 - CONCLUSION: 1. Hypoinflation with minimal bibasilar atelectatic changes but no confluent infiltrate. 2. Nasogastric tube with the tip just past the GE junction. This should probably be advanced 10-15 cm further into the stomach. Kishor Kim MD Abdomen Ultrasound 08/16/16 0000 Signed Impressions: Service Date/Time: Tuesday, August 16, 2016 14:38 - CONCLUSION: 1. Spectrum of findings suggesting cirrhosis with splenomegaly, diffuse hepatic fatty infiltration and diffuse abdominal ascites. 2. Nonvisualization of the gallbladder characteristic of the reported history of cholecystectomy. Kishor Kim MD Upper Extremity Ultrasound 08/08/16 0000 Signed Impressions: Service Date/Time: Monday, August 08, 2016 10:34 - CONCLUSION: Soft tissue swelling. Otherwise negative without DVT. Kishor Kim MD Physical Exam HEENT: Multiple ecchymotic areas to face, eyes appear jaundiced, pt appears to have removed his NG tube CHEST: CTA CARDIAC: RRR ABDOMEN: Soft, obese; nontender; bowel sounds are present in all four quadrants. : urine in [place] is reddish brown EXTREMITIES: Significant edema and ecchymosis to RUE- + pulse SKIN: jaundice, Significant bruising- especially to face and UE WARPER TENDER: more alert today, answers yes/no questions but otherwise unintelligible speech (Maria Luz Sims) Assessment and Plan Plan ASSESSMENT: - Anemia. No obvious active GI bleeding. Pt reports significant nose bleed when he originally fell, but denies any hematemesis, melena, or hematochezia. The nurse denies any obvious active bleeding. Of note, CT on 08/06 mentioned probable right flank hematoma and he has significant ecchymosis to RUE. S/P 2 units of PRBC. Of note, has hx of gastric bypass. HH 8.8, 25.8 No obvious active GI bleeding. there is reddish urine in [place] - Thrombocytopenia, Coagulopathy. Plt 28 today. PT 22.3, INR 2.0, APTT 41.6, fibrinogen 117 S/P 2 units FFP, 2 units of Plt 2 units, 1 unit cryoprecipitate. - Elevated LFTs, Alcoholic Hepatitis on underlying liver cirrhosis. 08/16/16 CT - --> 1. Spectrum of findings suggesting cirrhosis with splenomegaly, diffuse hepatic fatty infiltration and diffuse abdominal ascites. 2. Nonvisualization of the gallbladder characteristic of the reported history of cholecystectomy. T. Bili 10.5, AST 92, ALT 44, Alk Phosph 82, ammonia 23 decreasing Pentoxifylline - Elevated Lipase. 873 today No n/v, abdominal pain with this. Lipase improved. - AMS, likely combination of hepatic encephalopathy and DTs. Ammonia improved 23. Xifaxan/Lactulose QID. - GERD. PPI - RUE Edema/Ecchymosis. S/P CVT eval. No compartment syndrome. - Probable right flank hematoma. CT 08/06 probable 2.6 cm hematoma - Multiple electrolyte abnormalities. per primary - HTN, MAHENDRA, Depression. per primary - ETOH abuse. Librium per patient. PLAN: - Low salt diet - Cont. Xifaxan - Lactulose QID - Cont. PPI - Cont. Pentoxifylline - Monitor labs - await FOBT - Consider EGD when more stable - supportive care - Pt seen and examined by Dr. Moreno and myself and this note is written on his behalf (Maria Luz Sims) Physician Comments Patient seen and examined Agree with above Continue with current supportive care Monitor labs Overall patient appears to have poor prognosis (Max Moreno MD) Maria Luz Sims Aug 16, 2016 16:02 Max Moreno MD Aug 16, 2016 21:44
--- NOTE | 2016-08-16 16:46 | RADRPT ---
EXAM DATE/TIME: 08/16/2016 16:22 [facility] COMPARISON: CT BRAIN W/O CONTRAST, August 06, 2016, 17:46. INDICATIONS : Altered mental status. RADIATION DOSE: 43.11 CTDIvol (mGy) MEDICAL HISTORY : Cardiovascular disease. Hypertension. Diabetes SURGICAL HISTORY : Cholecystectomy. removal of acustic neuroma ENCOUNTER: Initial ACUITY: 1 day PAIN SCALE: 0/10 LOCATION: cranial TECHNIQUE: Multiple contiguous axial images were obtained of the head. Using automated exposure control and adj ustment of the mA and/or kV according to patient size, radiation dose was kept as low as reasonably a chievable to obtain optimal diagnostic quality images. FINDINGS: CEREBRUM: The ventricles are normal for age. No evidence of midline shift, mass lesion, hemorrhage or acute in farction. No extra-axial fluid collections are seen. POSTERIOR FOSSA: The cerebellum and brainstem are intact. The 4th ventricle is midline. The cerebellopontine angle i s unremarkable. EXTRACRANIAL: The visualized portion of the orbits is intact. There is opacification of left mastoid air cells agai n noted. SKULL: The calvaria is intact. No evidence of skull fracture. CONCLUSION: Stable exam with opacification of the left mastoid air cells again noted. Kian Guardado MD on August 16, 2016 at 16:42 Board Certified Radiologist. This report was verified electronically.
[2016-08-16] MEDS ORDERED: chlordiazePOXIDE 25 MG CAP PO PRN (17:45)
[2016-08-16] MEDS ORDERED: oxyCODONE HCL ORAL CONC 20 MG/ML SYRINGE PO PRN (17:45)
[2016-08-16] MEDS ORDERED: CHLORHEXIDINE GLUCONATE 2 % 1 PACK (2 CLOTHS)(extra cloths) TOPICAL PRN (18:00)
[2016-08-16] MEDS ORDERED: GLUCAGON 1 MG/ML VIAL OTHER PRN (18:45)
[2016-08-16] MEDS ORDERED: DEXTROSE 50% IN WATER 50 ML VIAL(D50) IV PUSH PRN (18:45)
[2016-08-16] MEDS: INSULIN NovoLIN REGULAR SUPPLEMENTAL SCALE SQ SCH (21:00)
[2016-08-17] VITALS: BP 122/68; PULSE 75; RESP 23; TEMP 98.5; O2SAT 99
[2016-08-17 04:00] VITALS: BP 112/55; PULSE 72; RESP 25; TEMP 98.5; O2SAT 93
[2016-08-17] MEDS: CHLORHEXIDINE GLUCONATE 2 % 1 PACK (2 CLOTHS)(taper/protocol) TOPICAL SCH (04:00)
[2016-08-17 05:44] LABS: AUTOMATED NEUTROPHIL # 5.9 TH/MM3 (1.8-7.7); BASOPHIL # 0.1 TH/MM3 (0-0.2); BASOPHIL % 1.3 % (0.0-2.0); EOSINOPHIL # 0.1 TH/MM3 (0-0.4); EOSINOPHIL % 0.6 % (0.0-4.0); LYMPH % 16.5 % (9.0-44.0); LYMPHOCYTE # 1.4 TH/MM3 (1.0-4.8); MEAN CELL VOLUME 107.8 FL (80.0-100.0); MEAN CORPUSCULAR HEMOGLOBIN 35.4 PG (27.0-34.0); MEAN CORPUSCULAR HGB CONC 32.8 % (32.0-36.0); NEUT % 69.6 % (16.0-70.0); PLATELET COUNT 24 TH/MM3 (150-450); RED BLOOD COUNT 2.32 MIL/MM3 (4.50-5.90); RED CELL DISTRIBUTION WIDTH 23.4 % (11.6-17.2); WHITE BLOOD COUNT 8.4 TH/MM3 (4.0-11.0)
[2016-08-17] MEDS: PENTOXIFYLLINE 400 MG CONTROLLED RELEASE TAB PO SCH ×3 (05:45→21:02)
[2016-08-17 05:48] LABS: HEMO FLAGS AUTO DIFF
[2016-08-17] MEDS: INSULIN NovoLIN REGULAR SUPPLEMENTAL SCALE SQ SCH ×4 (05:58→21:02)
[2016-08-17 05:59] LABS: APTT (PATIENT) 41.8 SEC (24.3-30.1); INTERNATIONAL NORMALIZED RATIO 1.9 RATIO; PROTHROMBIN TIME - PATIENT 21.8 SEC (9.8-11.6)
[2016-08-17 06:12] LABS: ALKALINE PHOSPHATASE 78 U/L (45-117); ALT (GPT) 42 U/L (12-78); ANION GAP 6 MEQ/L (5-15); AST (GOT) 78 U/L (15-37); BICARBONATE 25.7 MEQ/L (21.0-32.0); BLOOD UREA NITROGEN 15 MG/DL (7-18); CHLORIDE 108 MEQ/L (98-107); GLOMERULAR FILTRATION RATE 95 ML/MIN (>89); MAGNESIUM 1.8 MG/DL (1.5-2.5); POTASSIUM 3.6 MEQ/L (3.5-5.1); SODIUM (NA) 140 MEQ/L (136-145); TOTAL BILIRUBIN ADULT 9.7 MG/DL (0.2-1.0)
[2016-08-17 08:00] VITALS: BP 131/63; PULSE 79; PULSE 83; RESP 28; TEMP 99.1; O2SAT 93
[2016-08-17 08:03] LABS: BANDS 14 % (0-6); BASOPHILS 1 % (0-2); MYELOCYTES 1 % (0-0); NEUTROPHIL # MANUAL DIFF 6.5 TH/MM3 (1.8-7.7); POLYS (SEG NEUTROPHILS) 62 % (16-70); WBC DIFF SAMPLE 100
[2016-08-17 08:05] LABS: TOXIC GRANULATION 1+ (NORMAL)
[2016-08-17 08:06] LABS: PLATELET ESTIMATE SMEAR LOW (NORMAL); PLATELET MORPHOLOGY NORMAL (NORMAL); ROULEAUX PRESENT (NORMAL); SCAN/DIFF FINAL DIFF MANUAL
[2016-08-17] MEDS: SODIUM CHLORIDE 0.9% FLUSH 10 ML FLUSH IV FLUSH SCH ×2 (09:00→20:30)
[2016-08-17] MEDS: CALCIUM CARBONATE 500 MG CHEWABLE TAB PO SCH ×2 (09:04→20:30)
[2016-08-17] MEDS: LACTULOSE SYRUP 20 GM/30 ML CUP PO SCH ×4 (09:04→20:30)
[2016-08-17] MEDS: THIAMINE HCL 100 MG TAB PO SCH (09:04)
[2016-08-17] MEDS: cloNIDine HCL 0.2 MG TAB PO SCH ×2 (09:04→20:29)
[2016-08-17] MEDS: FOLIC ACID 1 MG TAB PO SCH (09:04)
[2016-08-17] MEDS: RIFAXIMIN 550 MG TAB PO SCH ×2 (09:04→20:29)
[2016-08-17] MEDS: FUROSEMIDE 40 MG/4 ML VIAL IV PUSH SCH (09:04)
[2016-08-17] MEDS: PANTOPRAZOLE SODIUM 40 MG VIAL IV PUSH SCH ×2 (09:04→20:30)
[2016-08-17] MEDS: DEXT 5%-NACL 0.9% 1000 ML INJ 1,000 ML IV SCH (09:08)
--- NOTE | 2016-08-17 09:46 | HHI.CCPN ---
Subjective Remarks/Hospital Course 50-year-old male. He admission 08/09/2016. Date of consultation 2016. Past medical history includes EtOH abuse, portal hypertension, abdominal ascites, liver cirrhosis, gastroesophageal disease, depression, osteoarthritis hypertension and tobaccoism. Patient is admitted 08/09/2016 after recurrent falls at home. Patient originally presented to the [facility] complaining of right arm pain after fall. He refuses admission and went home and began to drink again from the bathroom connected up. He is noted to have extreme upper extremity swelling and thrombocytopenia. After admission patient was transferred to [facility] [place] evaluation for possible compartment syndrome. Patient was evaluated by Dr. Neumann. Negative ultrasound. Adequate pulses. No surgical intervention required. Diabetic doctor to transfuse 2 units PRBCs, 2 pack platelets, 2 FFP and one cryoprecipitate since admission. Secondary to his underlying liver cirrhosis/ disease. E platelet count of 28,000. He was seen by gastroenterology.. Started on Xifaxan for elevated ammonia. Also on pentoxifylline 400 3 times a day for liver disease. Meld score is currently 23. Patient received morphine and Ativan early this morning. Patient was transferred due to altered mental status. Received 0.4 mg Narcan in currently back to baseline mental status. CT head will be ordered along with ABG. Abdominal ultrasound revealed liver ascites, liver cirrhosis Subjective 08/17: Meld score currently 22. Afebrile. Mumbling words somewhat legible. Following commands. Very weak subjectively. No active bleeding. Objective Vital Signs Date Time Temp Pulse Resp B/P Pulse Ox O2 Delivery O2 Flow Rate FiO2 08/17/16 07:00 92 Nasal Cannula 2.00 08/17/16 04:00 98.5 72 25 112/55 Intake and Output 08/16/16 08/16/16 08/17/16 08:00 16:00 00:00 Intake Total 414 ml Output Total 150 ml 1000 ml Balance -150 ml -586 ml Result Diagram: 08/17/16 0521 08/17/16 0521 Other Results Microbiology Date/Time Procedure Status Source Growth 08/16/16 13:35 Stool Occult Blood (IZABEL) - Final Complete Stool Stool HEMOCCULT POSITIVE Imaging Last Impressions Head CT 08/16/16 0000 Signed Impressions: Service Date/Time: Tuesday, August 16, 2016 16:22 - CONCLUSION: Stable exam with opacification of the left mastoid air cells again noted. Kian Guardado MD Chest X-Ray 08/16/16 0000 Signed Impressions: Service Date/Time: Tuesday, August 16, 2016 13:59 - CONCLUSION: 1. Hypoinflation with minimal bibasilar atelectatic changes but no confluent infiltrate. 2. Nasogastric tube with the tip just past the GE junction. This should probably be advanced 10-15 cm further into the stomach. Kishor Kim MD Abdomen Ultrasound 08/16/16 0000 Signed Impressions: Service Date/Time: Tuesday, August 16, 2016 14:38 - CONCLUSION: 1. Spectrum of findings suggesting cirrhosis with splenomegaly, diffuse hepatic fatty infiltration and diffuse abdominal ascites. 2. Nonvisualization of the gallbladder characteristic of the reported history of cholecystectomy. Kishor Kim MD Upper Extremity Ultrasound 08/08/16 0000 Signed Impressions: Service Date/Time: Monday, August 08, 2016 10:34 - CONCLUSION: Soft tissue swelling. Otherwise negative without DVT. Kishor Kim MD Objective Remarks GENERAL: 50-year-old male, critically ill currently resting in bed delirious SKIN: Warm and dry. Multiple tattoos on thorax/upper and lower extremities. Significant ecchymoses right upper extremity HEAD: Atraumatic. Normocephalic. EYES: Pupils equal and round about 2 mm bilaterally and reactive. + scleral icterus. No injection or drainage. ENT: No nasal bleeding or discharge. Mucous membranes pink and moist. NECK: Trachea midline. No JVD. CARDIOVASCULAR: Regular rate and rhythm. S1, S2. No S4. Without murmur, clicks, gallops or rubs RESPIRATORY: Clear to auscultation. Breath sounds equal bilaterally. GASTROINTESTINAL: Abdomen distended, nontender. Possible right flank hematoma. Hypoactive bowel sounds. Positive succussion splash MUSCULOSKELETAL: Extremities with 1+ lower extremity pitting edema. No obvious deformities. Significant ecchymosis due to right upper extremity trauma/ ecchymosis and edema. NEUROLOGICAL: Awake and alert. No obvious cranial nerve deficits. Motor grossly within normal limits. Five out of 5 muscle strength in the arms and legs. Slurred speech Awake and alert oriented to person, time but not place. A/P Assessment and Plan Neuro/Psych: Toxic metabolic encephalopathy EtOH abuse Chronic narcotic use Depression CT head revealed no acute intracranial findings. Left mastoiditis noted. Currently on Librium 25 mg by mouth 3 times a day as needed for EtOH withdrawal. Switch to oxycodone 5 mg liquid every 6 hours when necessary pain. Ativan/morphine discontinued Received Narcan 0.4 mg IV 1 with resolution of altered mental status Check MRI/MRA brain EEG ordered CV: History of hypertension Home medications clonidine 0.2 mg by mouth twice a day Currently on D5 normal saline at 70 cc an hour. This will be discontinued today Resp: Ongoing tobaccoism Nasal cannula to maintain saturations greater than equal to 92% Incentive spirometry awake As needed bronchodilator therapy every 6 hours GI: Elevated lipase Hypoalbuminemia Elevated ammonia level Abdominal ascites Portal hypertension Liver cirrhosis History of perforated colon/gastric ulcer Elevated AST Meld score is currently 22 Currently on Xifaxan 550 twice a day and lactulose 30 cc 4 times a day for elevated ammonia. Recheck in a.m. On pentoxifylline 400 mg 3 times a day for underlying liver failure Abdominal ultrasound revealed gross ascites, cirrhotic appearing liver. Non visualization of gallbladder. Protonix 40 mg IV twice a day : Bowers is not indicated due to gross thrombocytopenia Endo: Sliding scale insulin if indicated to maintain euglycemia Renal: Kidney function currently within normal limits. Follow-up creatinine in a.m. Heme: Macrocytic anemia Thrombocytopenia Low fibrinogen Elevated INR Seen in consultation by Dr. Casarez/hematology - secondary to underlying liver disease Transfuse 2 units PRBCs, 2 packets, 2 FFP and 1 cryoprecipitate since admission Recheck coags/fibrinogen a.m. it INR currently 1.9. Fibrinogen 148. Currently no active bleeding. ID: Monitor for infection FEN: Hypocalcemia Replace electrolytes as clinically indicated Currently on calcium carbonate 500 twice a day. MSK: PT evaluate and treat Access - Utilize peripheral IV. Central if indicated Prophylaxis - GI - Protonix - DVT - SCD/no pharmacological prophylaxis in light of low platelets Critical Care: The total critical care time was 35 minutes. Time to perform other separately billable procedures was not included in the critical care time. Aj Malcolm MD Aug 17, 2016 09:46
[2016-08-17] MEDS ORDERED: THIAMINE INJ 100 MG in SODIUM CHLORIDE 0.9% INJ 100 ML IV ONE (10:00)
[2016-08-17 12:00] VITALS: BP 128/62; PULSE 78; RESP 16; TEMP 99.6; O2SAT 98
--- NOTE | 2016-08-17 15:51 | PD.CONS ---
Consult Service Palliative Care Consult Requested By MD Yun Primary Care Physician No Primary Care Physician Reason for Consultation a. To assist with evaluation and management of symptoms including: b. To assist medical decision maker(s) with: better understanding of current medical conditions; weighing benefits/burdens of medical treatment options; making medical treatment decisions. HPI History of Present Illness 50 yo gentleman who presented on 08/07/16 to the ED after a falls at home while drinking. He reportedly consumes a 12 pk per day. Patient has a past medical history significant for hypertension, arthritis, depression, GERD, ascites, portal hypertension, history of balance issues with left ear acoustic neuroma, had Vero-en-Y gastric bypass in 2010, stomach ulcer, perforated bowel. On March 22, 2013 and February 21, 2013, cholecystectomy. Reportedly smokes 1 pack per day and drinks a 12 pack of alcohol daily. Reported that the fall was due to balance issues. On admission, his platelet count was 22,000. INR was 2.1, APTT was 49. Hemoglobin was 7.1 with a hematocrit of 20 point 5 and platelet count of 30. Admitting sodium was 121. Additionally, his AST was 277, PLT 508, alkaline phosphatase 109. Albumin was 1.7. Ammonia was 79. Lipase was 1773. Alcohol level was 258. It appears that he fell on his right side causing significant bruising and swelling to his right arm and initial concern was for compartment syndrome. No fracture was found on x-ray. He was transferred with FFP, cryoprecipitate, PRBCs . He was also started on thiamine , lactulose for ammonia levels. On initial presentation, he was conversant, alert and oriented however 08/16/16 developed altered mental status and was transferred to [facility]. MRI/MRA were unremarkable. His current meld score is 23 Ultrasound of the abdomen acknowledged spectrum of findings suggesting cirrhosis with splenomegaly, diffuse hepatic fatty infiltration and diffuse, with ascites. Chest x-ray identified. Hypoinflation with minimal bibasal atelectatic changes. No confluent infiltrates GI has been consulted concern of GI bleed. However, in light of his low platelet/fibrinogen level as well as massive hematoma to the right arm and right flank hematoma, It was felt his low hemoglobin was due to blood loss third spacing secondary to coagulopathy. At the time of my visit, he is awake and alert. He will open his eyes, he will follow a few commands, he will attempt to answer questions, however Speech is comprehensible. Vital signs are stable. He has significant pulmonary congestion . He is on 2 L nasal cannula with adequate I&O's. He has significant ascites with fluid wave. He appears be jaundiced with scleral icterus. He is a very large man with several tattoos on her arms and shoulders. As for her family, we understand that he has a local daughter. Considering that platelet count is around 20 to 30,000 and his INR is over 2 i.e. being fully anticoagulated despite the fact ge is not on Coumadin puts him on ADILENE 4 criteria category in addition to ascites and liver failure, elevated ammonia and bilirubin. With this MELD score, this patient's survival is less than one year average just by natural history of the disease. Review of Systems ROS Limitations: Clinical Condition, Altered Mental Status Eyes: COMPLAINS OF: Blurred vision Musculoskeletal: COMPLAINS OF: Joint pain, Back pain Neurologic: COMPLAINS OF: Abnormal gait, Poor Balance Other ROS: While patient is awake. He is unable to provide any clear information - words are not comprehensible Past Family Social History Coded Allergies: Ativan (Verified Allergy, Severe, AGITATION, 08/07/16) Celebrex (Verified Allergy, Severe, Swelling, 08/07/16) Past Medical History HTN ETOH abuse Liver cirrhosis- pt denies any known hx of this, but it is in past records Portal hypertensin Ascites Memory loss Left ear acoustic neuroma OA Depression GERD PUD according to EMR, pt denies any known hx of this. Past Surgical History Left ear acoustic neuroma resection Gastric bypass 2010 Obstructed bowel Removal of tailbone, cholecystectomy, total knee replacement of both right and left knees History of perforated bowel times 22 January 2013 and February 2013 Reported Medications Lortab, Clonidine 0.2 Eyedrops Current Medications Medications (Trade) Dose Ordered Sig/Ivan Route Start Time Stop Time Status Last Admin (NS Flush) 2 ml UNSCH PRN IV FLUSH 08/07/16 22:45 (NS Flush) 2 ml BID IV FLUSH 08/08/16 09:00 08/16/16 21:01 (Zofran Inj) 4 mg Q6H PRN IVP 08/07/16 22:45 (Narcan Inj) 0.4 mg UNSCH PRN IV 08/07/16 22:45 08/16/16 14:16 (Catapres) 0.2 mg BID PO 08/08/16 09:00 08/17/16 09:04 (Folate) 1 mg DAILY PO 08/09/16 09:00 08/17/16 09:04 (Protonix Inj) 40 mg Q12H IV PUSH 08/09/16 09:30 08/17/16 09:04 (TRENtal SR) 400 mg Q8HR PO 08/09/16 14:00 08/17/16 12:23 (Xifaxan) 550 mg BID PO 08/10/16 21:00 08/17/16 09:04 (Lactulose Liq) 30 ml QID PO 08/11/16 13:00 08/17/16 12:22 (Tums Chew) 500 mg BID PO 08/12/16 09:00 08/17/16 09:04 (Catapres) 0.1 mg Q6H PRN PO 08/14/16 17:00 (Lasix Inj) 40 mg DAILY IV PUSH 08/16/16 11:15 08/17/16 09:04 (Librium) 25 mg TID PRN PO 08/16/16 17:45 (Roxicodone Intensol Liq) 5 mg Q6H PRN PO 08/16/16 17:45 Miscellaneous Information Patient in critical care unit? Ass... Q361D .XX 08/16/16 18:00 (Chlorhexidine 2% Cloth) 3 pack DAILY@04 TOPICAL 08/17/16 04:00 08/21/16 04:01 08/17/16 04:00 (Chlorhexidine 2% Cloth) 3 pack UNSCH PRN TOPICAL 08/16/16 18:00 08/21/16 17:59 (D50w (Vial) Inj) 25 ml UNSCH PRN IV PUSH 08/16/16 18:45 Glucagon 1 mg 1 mg UNSCH PRN OTHER 08/16/16 18:45 (Thiamine Inj/NS Inj) 101 ml @ 101 mls/hr DAILY IV 08/18/16 09:00 Family History Mother from brain cancer Father from CAD/VT. Substance Use Tobacco: Smoked 4packs per day for 19-20 years Alcohol: 12 pack daily Prescription med abuse: Appears to have some prior abuse of oxycodone per clinical records - old records indicate prescription of oxycodone syndrome release 80 mg twice a day as well as short acting 15 mg every 4 when necessary, splenic 0.5 milligrams twice a day Illicits: Unknown Psychosocial History 50-year-old man, , living alone, history of being disabled, has 1 daughter that were aware that this time Spiritual/Cultural Factors Unknown Living Will: Never completed Durable Power of Fiscal Accounting Clerk: Never completed Health Care Surrogate(s): Per [place] statutes. Patient's daughter and/or other adult children would serve as decision makers. Need to get further information Physical Exam Vital Signs Date Time Temp Pulse Resp B/P Pulse Ox O2 Delivery O2 Flow Rate FiO2 08/17/16 12:00 99.6 78 16 128/62 98 08/17/16 08:00 99.1 83 28 131/63 93 08/17/16 08:00 79 08/17/16 07:00 92 Nasal Cannula 2.00 08/17/16 04:00 98.5 72 25 112/55 93 08/17/16 00:00 98.5 75 23 122/68 99 08/16/16 20:00 79 08/16/16 20:00 95.5 79 24 132/64 98 08/16/16 19:06 95 Nasal Cannula 2.00 08/16/16 19:00 96 Nasal Cannula 2.00 08/16/16 18:00 75 08/16/16 16:00 98.2 75 20 127/64 97 08/16/16 15:44 95 Nasal Cannula 2.00 08/16/16 08/17/16 19:00 07:00 Intake Total 808 ml Output Total 850 ml 300 ml Balance -850 ml 508 ml Intake Oral 0 ml IV Total 808 ml Output Urine Total 850 ml 300 ml # Bowel Movements 0 0 Exam CONSTITUTIONAL/GENERAL: This is an obese male, who appears uncomfortable TUBES/LINES/DRAINS: Nasal cannula, Bowers catheter SKIN: jaundice, rashes, or lesions. Massive dense bruise to right arm, facial lacerations as well as bruising. Multiple tattoos Not diaphoretic. HEAD: Multiple facial lacerations and bruising , Normocephalic. EYES: Pupils equal and round and reactive. scleral icterus, Extraocular motions intact. . Some injection and drainage. ENT: Hearing grossly normal. Nose with evidence of old bleeding or no purulent drainage. Mouth dry with visible erythema, exudates, masses, or lesions. NECK: Trachea midline. Supple, nontender. No palpable thyroid enlargement or nodularity. CARDIOVASCULAR: Regular rate and rhythm without murmurs, gallops, or rubs. No JVD. Peripheral pulses symmetric. RESPIRATORY/CHEST: Symmetric, unlabored respirations. Coarse breath sounds/ rhonchi anteriorly, diminished posteriorly Clear to auscultation. GASTROINTESTINAL: Large firm, ascitic wave, no pitting edema, unable to palpate hepato-splenomegaly, Bowel sounds present. GENITOURINARY: Without palpable bladder distension. Bowers catheter in place. MUSCULOSKELETAL: Extremities without clubbing, cyanosis, or edema. No joint tenderness or effusion noted. No calf tenderness. No mottling or clubbing. LYMPHATICS: No palpable cervical or supraclavicular adenopathy. NEUROLOGICAL: Awake and alert. Follows some commands. Cognitively dull. Tries to speak words not comprehensible. PSYCHIATRIC: Unable to adequately assess Diagnostic Tests Laboratory Laboratory Tests Test 08/15/16 08/15/16 08/15/16 08/16/16 06:04 10:06 14:06 05:56 White Blood Count 3.9 TH/MM3 7.6 TH/MM3 (4.0-11.0) (4.0-11.0) Red Blood Count 2.25 MIL/MM3 2.43 MIL/MM3 (4.50-5.90) (4.50-5.90) Hemoglobin 7.9 GM/DL 9.3 GM/DL 8.8 GM/DL (13.0-17.0) (13.0-17.0) (13.0-17.0) Hematocrit 23.9 % 27.9 % 25.8 % (39.0-51.0) (39.0-51.0) (39.0-51.0) Mean Corpuscular Volume 106.2 FL 105.9 FL (80.0-100.0) (80.0-100.0) Mean Corpuscular Hemoglobin 35.2 PG 36.1 PG (27.0-34.0) (27.0-34.0) Mean Corpuscular Hemoglobin 33.1 % 34.1 % Concent (32.0-36.0) (32.0-36.0) Red Cell Distribution Width 23.4 % 22.9 % (11.6-17.2) (11.6-17.2) Platelet Count 23 TH/MM3 28 TH/MM3 (150-450) (150-450) Mean Platelet Volume 9.0 FL 8.5 FL (7.0-11.0) (7.0-11.0) Neutrophils (%) (Auto) 61.1 % 74.3 % (16.0-70.0) (16.0-70.0) Lymphocytes (%) (Auto) 20.1 % 13.7 % (9.0-44.0) (9.0-44.0) Monocytes (%) (Auto) 16.2 % 11.2 % (0.0-8.0) (0.0-8.0) Eosinophils (%) (Auto) 1.3 % (0.0-4.0) 0.3 % (0.0-4.0) Basophils (%) (Auto) 1.3 % (0.0-2.0) 0.5 % (0.0-2.0) Neutrophils # (Auto) 2.4 TH/MM3 5.7 TH/MM3 (1.8-7.7) (1.8-7.7) Lymphocytes # (Auto) 0.8 TH/MM3 1.0 TH/MM3 (1.0-4.8) (1.0-4.8) Monocytes # (Auto) 0.6 TH/MM3 0.9 TH/MM3 (0-0.9) (0-0.9) Eosinophils # (Auto) 0.1 TH/MM3 0.0 TH/MM3 (0-0.4) (0-0.4) Basophils # (Auto) 0.1 TH/MM3 0.0 TH/MM3 (0-0.2) (0-0.2) CBC Comment AUTO DIFF AUTO DIFF Differential Total Cells 100 100 Counted Neutrophils % (Manual) 43 % (16-70) 64 % (16-70) Band Neutrophils % 16 % (0-6) 23 % (0-6) Lymphocytes % 31 % (9-44) 2 % (9-44) Monocytes % 7 % (0-8) 8 % (0-8) Neutrophils # (Manual) 2.4 TH/MM3 6.7 TH/MM3 (1.8-7.7) (1.8-7.7) Myelocytes 2 % (0-0) Nucleated Red Blood Cells 1 /100 WBC (0-0) Differential Comment FINAL DIFF FINAL DIFF MANUAL MANUAL Blastocytes 1 % (0-0) Toxic Granulation 2+ (NORMAL) Platelet Estimate LOW (NORMAL) LOW (NORMAL) Platelet Morphology Comment NORMAL NORMAL (NORMAL) (NORMAL) Sodium Level 138 MEQ/L 139 MEQ/L (136-145) (136-145) Potassium Level 3.6 MEQ/L 3.5 MEQ/L (3.5-5.1) (3.5-5.1) Chloride Level 108 MEQ/L 108 MEQ/L (98-107) (98-107) Carbon Dioxide Level 24.7 MEQ/L 22.0 MEQ/L (21.0-32.0) (21.0-32.0) Anion Gap 5 MEQ/L (5-15) 9 MEQ/L (5-15) Blood Urea Nitrogen 6 MG/DL (7-18) 8 MG/DL (7-18) Creatinine 0.61 MG/DL 0.80 MG/DL (0.60-1.30) (0.60-1.30) Estimat Glomerular Filtration 139 ML/MIN 102 ML/MIN Rate (>89) (>89) Random Glucose 156 MG/DL 181 MG/DL (74-106) (74-106) Calcium Level 7.3 MG/DL 7.5 MG/DL (8.5-10.1) (8.5-10.1) Protein Corrected Calcium 7.8 MG/DL (8.5-10.1) Total Bilirubin 9.4 MG/DL 10.5 MG/DL (0.2-1.0) (0.2-1.0) Aspartate Amino Transf 97 U/L (15-37) 92 U/L (15-37) (AST/SGOT) Alanine Aminotransferase 39 U/L (12-78) 44 U/L (12-78) (ALT/SGPT) Alkaline Phosphatase 79 U/L (45-117) 82 U/L (45-117) Total Protein 6.2 GM/DL 7.0 GM/DL (6.4-8.2) (6.4-8.2) Albumin 1.5 GM/DL 1.6 GM/DL (3.4-5.0) (3.4-5.0) Prothrombin Time 21.8 SEC 22.3 SEC (9.8-11.6) (9.8-11.6) Prothromb Time International 1.9 RATIO 2.0 RATIO Ratio Activated Partial 41.1 SEC 41.6 SEC Thromboplast Time (24.3-30.1) (24.3-30.1) Fibrinogen 112 mg/dL 117 mg/dL (181-393) (227-377) Eosinophils % 2 % (0-4) Metamyelocytes 1 % (0-1) Ammonia 23 MCMOL/L (11-32) Lipase 873 U/L (73-393) Test 08/16/16 08/17/16 14:00 05:21 Nasal Screen MRSA (PCR) MRSA NOT DETECTED (NOT DETECT) White Blood Count 8.4 TH/MM3 (4.0-11.0) Red Blood Count 2.32 MIL/MM3 (4.50-5.90) Hemoglobin 8.2 GM/DL (13.0-17.0) Hematocrit 25.0 % (39.0-51.0) Mean Corpuscular Volume 107.8 FL (80.0-100.0) Mean Corpuscular Hemoglobin 35.4 PG (27.0-34.0) Mean Corpuscular Hemoglobin 32.8 % Concent (32.0-36.0) Red Cell Distribution Width 23.4 % (11.6-17.2) Platelet Count 24 TH/MM3 (150-450) Mean Platelet Volume 8.7 FL (7.0-11.0) Neutrophils (%) (Auto) 69.6 % (16.0-70.0) Lymphocytes (%) (Auto) 16.5 % (9.0-44.0) Monocytes (%) (Auto) 12.0 % (0.0-8.0) Eosinophils (%) (Auto) 0.6 % (0.0-4.0) Basophils (%) (Auto) 1.3 % (0.0-2.0) Neutrophils # (Auto) 5.9 TH/MM3 (1.8-7.7) Lymphocytes # (Auto) 1.4 TH/MM3 (1.0-4.8) Monocytes # (Auto) 1.0 TH/MM3 (0-0.9) Eosinophils # (Auto) 0.1 TH/MM3 (0-0.4) Basophils # (Auto) 0.1 TH/MM3 (0-0.2) CBC Comment AUTO DIFF Differential Total Cells 100 Counted Neutrophils % (Manual) 62 % (16-70) Band Neutrophils % 14 % (0-6) Lymphocytes % 12 % (9-44) Monocytes % 10 % (0-8) Basophils % 1 % (0-2) Neutrophils # (Manual) 6.5 TH/MM3 (1.8-7.7) Myelocytes 1 % (0-0) Differential Comment FINAL DIFF MANUAL Toxic Granulation 1+ (NORMAL) Platelet Estimate LOW (NORMAL) Platelet Morphology Comment NORMAL (NORMAL) Polychromasia 2.0 % (0.0-1.9) Rouleau PRESENT (NORMAL) Prothrombin Time 21.8 SEC (9.8-11.6) Prothromb Time International 1.9 RATIO Ratio Activated Partial 41.8 SEC Thromboplast Time (24.3-30.1) Fibrinogen 148 mg/dL (227-377) Sodium Level 140 MEQ/L (136-145) Potassium Level 3.6 MEQ/L (3.5-5.1) Chloride Level 108 MEQ/L (98-107) Carbon Dioxide Level 25.7 MEQ/L (21.0-32.0) Anion Gap 6 MEQ/L (5-15) Blood Urea Nitrogen 15 MG/DL (7-18) Creatinine 0.85 MG/DL (0.60-1.30) Estimat Glomerular Filtration 95 ML/MIN (>89) Rate Random Glucose 172 MG/DL (74-106) Lactic Acid Level 1.8 mmol/L (0.4-2.0) Calcium Level 7.5 MG/DL (8.5-10.1) Phosphorus Level 2.1 MG/DL (2.5-4.9) Magnesium Level 1.8 MG/DL (1.5-2.5) Total Bilirubin 9.7 MG/DL (0.2-1.0) Aspartate Amino Transf 78 U/L (15-37) (AST/SGOT) Alanine Aminotransferase 42 U/L (12-78) (ALT/SGPT) Alkaline Phosphatase 78 U/L (45-117) Total Protein 6.9 GM/DL (6.4-8.2) Albumin 1.5 GM/DL (3.4-5.0) Result Diagram: 08/17/16 0521 08/17/16 0521 Microbiology Microbiology Date/Time Procedure Status Source Growth 08/16/16 13:35 Stool Occult Blood ([facility]) - Final Complete Stool Stool HEMOCCULT POSITIVE Imaging Microbiology Date/Time Procedure Status Source Growth 08/16/16 13:35 Stool Occult Blood ([facility]) - Final Complete Stool Stool HEMOCCULT POSITIVE Procedures Last [address] 08/16/16 0000 Signed Impressions: Service Date/Time: Tuesday, August 16, 2016 16:22 - CONCLUSION: Stable exam with opacification of the left mastoid air cells again noted. Kian Guardado MD Chest X-Ray 08/16/16 0000 Signed Impressions: Service Date/Time: Tuesday, August 16, 2016 13:59 - CONCLUSION: 1. Hypoinflation with minimal bibasilar atelectatic changes but no confluent infiltrate. 2. Nasogastric tube with the tip just past the GE junction. This should probably be advanced 10-15 cm further into the stomach. Kishor Kim MD Abdomen Ultrasound 08/16/16 0000 Signed Impressions: Service Date/Time: Tuesday, August 16, 2016 14:38 - CONCLUSION: 1. Spectrum of findings suggesting cirrhosis with splenomegaly, diffuse hepatic fatty infiltration and diffuse abdominal ascites. 2. Nonvisualization of the gallbladder characteristic of the reported history of cholecystectomy. Kishor Kim MD Patient/Family Conference Issues Discussed: * Palliative care role, purpose, approach * Additional medical, psychosocial, and spiritual history * Patients general health, functional status, and cognitive changes in the months leading up to the current hospitalization * Patient/family understanding of the current medical problems * Patient/family understanding of prognosis * Patients goals of care as best understood from advance directives and/or conversations and/or values * Current medical treatment options and benefits/burdens of those options * Likely scenarios comparing ongoing aggressive care with a transition to comfort measures only * Questions answered to the best of my ability * Palliative care contact information provided Assessment and Plan Disease Oriented Problem List: (1) Thrombocytopenia (2) Coagulopathy (3) Cirrhosis (4) Alcohol abuse (5) Change in mental status Symptom Scale: (1) Pain 0-10 Scale: Unable to quantify Comment: In light of recent falls and extensive bruise. In addition to prior history of joint replacements. He likely have a fair amount of pain. However, he is unable to adequately express that (2) Confusion 0-10 Scale: Unable to quantify Comment: Cognitive state is dull (3) Dyspnea 0-10 Scale: Unable to quantify Pertinent Non-Medical Issues Psychosocial: 50-year-old male, disabled, single, living alone, has one known daughter at this time Spiritual: Unknown at this time Legal: Healthcare decision-making would fall to his daughter or other adult children per [place] statutes. This needs to be investigated and clarified. At this time. We do have contact information for his daughter , Alexandra Arias [phone] Ethical issues impacting care: Patient is unable unable to make decisions at this time Important Contacts Daughter Alexandra Arias, There was also a friend/significant other, Luma Carr [phone] reported that she is out of 10 at this time Prognosis Prognosis: Prognosis is poor in light of his overall clinical state. At this point in time. He would need to quit drinking to provide him with more days to his life. However, should he continue to drink. He would likely need his demise earlier. Meld is currently 23. Considering that platelet count is around 20 to 30,000 and his INR is over 2 i.e. being fully anticoagulated despite the fact ge is not on Coumadin puts him on ADILENE 4 criteria category in addition to ascites and liver failure, elevated ammonia and bilirubin. With this MELD score, this patient's survival is less than one year average just by natural history of the disease. Code Status: Full Code Plan Decision Maker: Diana, Alexandra Arias, Code Status: Full code at this time until further clarification Family Discussion: Telephone call placed to daughter, message left Symptoms: Pain, dyspnea, confusion, Palliative care phone number provided - will follow during hospital stay. Thank you for the opportunity to participate in the care of Mr. Arias. Joanie Field Aug 17, 2016 15:51
--- NOTE | 2016-08-17 15:57 | RADRPT ---
EXAM DATE/TIME: 08/17/2016 15:17 [facility] COMPARISON: No previous studies available for comparison. INDICATIONS : Altered mental status. MEDICAL HISTORY : Hypertension. Cirrhosis. Portal hypertension. ETOH abuse. SURGICAL HISTORY : Gastric bypass. Cholecystectomy. Acoustic neuroma. ENCOUNTER: Subsequent ACUITY: 1 week PAIN SCORE: 0/10 LOCATION: head. Please note a normal MRA of the brain does not entirely exclude the possibility of a small aneurysm, nor the possibility of distal intracranial vessel disease. TECHNIQUE: 3D time of flight MRA was performed. Source images, multiplanar STS MIP, and 3D volume MIP reconstru ctions were reviewed. FINDINGS: There is excellent visualization of the major intracranial arteries out to the second-order branch ve ssels. There is no evidence for aneurysm, vessel truncation or stenosis, and no evidence for vascula r malformation. There are patent posterior communicating arteries bilaterally. Examination of posterior fossa also demonstrates no evidence of aneurysm or vascular malformation. Th e vertebral arteries are codominant. CONCLUSION: 1. Unremarkable MR angiography of the brain. Braydon Packer MD on August 17, 2016 at 15:54 Board Certified Radiologist. This report was verified electronically.
--- NOTE | 2016-08-17 15:59 | RADRPT ---
EXAM DATE/TIME: 08/17/2016 15:17 [facility] COMPARISON: CT BRAIN W/O CONTRAST, August 16, 2016, 16:22. INDICATIONS : Altered mental status. Encephalopathy. MEDICAL HISTORY : Hypertension. Cirrhosis. Portal hypertension. ETOH abuse. SURGICAL HISTORY : Gastric bypass. Cholecystectomy. Acoustic neuroma. ENCOUNTER: Subsequent ACUITY: 1 week PAIN SCORE: 0/10 LOCATION: head. TECHNIQUE: Multiplanar, multisequence MRI of the brain was performed without contrast. FINDINGS: MRI of the brain is performed in sagittal, axial and coronal planes. The craniocervical junction and midline structures are unremarkable. Diffusion weighted images demonstrate no abnormality. There is n o evidence of acute cortical infarction, acute hemorrhage, mass effect or midline shift is seen. Ther e is ventricular asymmetry involving the lateral ventricles within normal variation. Posterior fossa structures are unremarkable. The images are degraded by magnetic susceptibility artifact in the poste rior fossa on the left is benign mucosal disease involving the left mastoid air cells. CONCLUSION: 1. No evidence of acute intracranial pathology. No masses are identified. Braydon Packer MD on August 17, 2016 at 15:55 Board Certified Radiologist. This report was verified electronically.
[2016-08-17 16:00] VITALS: BP 183/77; PULSE 77; RESP 14; TEMP 98; O2SAT 98
--- NOTE | 2016-08-17 17:32 | HHI.GIFU ---
Subjective Remarks Resting in bed. Extremely lethargic, mildly labored breathing. Does awaken, but not following commands. Did not pass his swallow evaluation today. (Lena Gabriel) Objective Vitals I&O Vital Signs Date Time Temp Pulse Resp B/P Pulse Ox O2 Delivery O2 Flow Rate FiO2 08/17/16 16:00 98.0 77 14 183/77 98 08/17/16 12:00 99.6 78 16 128/62 98 08/17/16 08:00 99.1 83 28 131/63 93 08/17/16 08:00 79 08/17/16 07:00 92 Nasal Cannula 2.00 08/17/16 04:00 98.5 72 25 112/55 93 08/17/16 00:00 98.5 75 23 122/68 99 08/16/16 20:00 79 08/16/16 20:00 95.5 79 24 132/64 98 08/16/16 19:06 95 Nasal Cannula 2.00 08/16/16 19:00 96 Nasal Cannula 2.00 08/16/16 18:00 75 I/O 08/16/16 08/16/16 08/16/16 08/17/16 08/17/16 08/17/16 07:00 15:00 23:00 07:00 15:00 23:00 Intake Total 414 ml 394 ml 656 ml Output Total 150 ml 1000 ml 150 ml 750 ml Balance -150 ml -586 ml 244 ml -94 ml Intake Oral 0 ml 0 ml 100 ml IV Total 414 ml 394 ml 556 ml Output Urine Total 150 ml 1000 ml 150 ml 750 ml # Bowel Movements 1 0 0 Laboratory Laboratory Tests Test 08/17/16 05:21 White Blood Count 8.4 Red Blood Count 2.32 Hemoglobin 8.2 Hematocrit 25.0 Mean Corpuscular Volume 107.8 Mean Corpuscular Hemoglobin 35.4 Mean Corpuscular Hemoglobin 32.8 Concent Red Cell Distribution Width 23.4 Platelet Count 24 Mean Platelet Volume 8.7 Neutrophils (%) (Auto) 69.6 Lymphocytes (%) (Auto) 16.5 Monocytes (%) (Auto) 12.0 Eosinophils (%) (Auto) 0.6 Basophils (%) (Auto) 1.3 Neutrophils # (Auto) 5.9 Lymphocytes # (Auto) 1.4 Monocytes # (Auto) 1.0 Eosinophils # (Auto) 0.1 Basophils # (Auto) 0.1 CBC Comment AUTO DIFF Differential Total Cells 100 Counted Neutrophils % (Manual) 62 Band Neutrophils % 14 Lymphocytes % 12 Monocytes % 10 Basophils % 1 Neutrophils # (Manual) 6.5 Myelocytes 1 Differential Comment FINAL DIFF MANUAL Toxic Granulation 1+ Platelet Estimate LOW Platelet Morphology Comment NORMAL Polychromasia 2.0 Rouleau PRESENT Prothrombin Time 21.8 Prothromb Time International 1.9 Ratio Activated Partial 41.8 Thromboplast Time Fibrinogen 148 Sodium Level 140 Potassium Level 3.6 Chloride Level 108 Carbon Dioxide Level 25.7 Anion Gap 6 Blood Urea Nitrogen 15 Creatinine 0.85 Estimat Glomerular Filtration 95 Rate Random Glucose 172 Lactic Acid Level 1.8 Calcium Level 7.5 Phosphorus Level 2.1 Magnesium Level 1.8 Total Bilirubin 9.7 Aspartate Amino Transf 78 (AST/SGOT) Alanine Aminotransferase 42 (ALT/SGPT) Alkaline Phosphatase 78 Total Protein 6.9 Albumin 1.5 Date/Time Procedure Status Source Growth 08/16/16 13:35 Stool Occult Blood ([facility]) - Final Complete Stool Stool HEMOCCULT POSITIVE Imaging Last Impressions Head Magnetic Resonance Angiography 08/17/16 0000 Signed Impressions: Service Date/Time: July 15:17 - CONCLUSION: 1. Unremarkable MR angiography of the brain. Braydon Packer MD Brain MRI 08/17/16 0000 Signed Impressions: Service Date/Time: July 15:17 - CONCLUSION: 1. No evidence of acute intracranial pathology. No masses are identified. Braydon Packer MD Head CT 08/16/16 0000 Signed Impressions: Service Date/Time: Tuesday, August 16, 2016 16:22 - CONCLUSION: Stable exam with opacification of the left mastoid air cells again noted. Kian Guardado MD Chest X-Ray 08/16/16 0000 Signed Impressions: Service Date/Time: Tuesday, August 16, 2016 13:59 - CONCLUSION: 1. Hypoinflation with minimal bibasilar atelectatic changes but no confluent infiltrate. 2. Nasogastric tube with the tip just past the GE junction. This should probably be advanced 10-15 cm further into the stomach. Kishor Kim MD Abdomen Ultrasound 08/16/16 0000 Signed Impressions: Service Date/Time: Tuesday, August 16, 2016 14:38 - CONCLUSION: 1. Spectrum of findings suggesting cirrhosis with splenomegaly, diffuse hepatic fatty infiltration and diffuse abdominal ascites. 2. Nonvisualization of the gallbladder characteristic of the reported history of cholecystectomy. Kishor Kim MD Upper Extremity Ultrasound 08/08/16 0000 Signed Impressions: Service Date/Time: Monday, August 08, 2016 10:34 - CONCLUSION: Soft tissue swelling. Otherwise negative without DVT. Kishor Kim MD Physical Exam HEENT: Multiple ecchymotic areas to face, eyes appear jaundiced CHEST: Resp. mildly labored, tachypneic, course breath sounds, CARDIAC: RRR ABDOMEN: Soft, obese; nontender; bowel sounds are present in all four quadrants. EXTREMITIES: Significant edema and ecchymosis to RUE- + pulse SKIN: jaundice, Significant bruising- especially to face and UE [employer]: Extremely lethargic. Awakens but does not follow commands (Lena Gabriel) Assessment and Plan Plan ASSESSMENT: - Anemia. No obvious active GI bleeding. Pt reports significant nose bleed when he originally fell, but denies any hematemesis, melena, or hematochezia. The nurse denies any obvious active bleeding. Of note, CT on 08/06 mentioned probable right flank hematoma and he has significant ecchymosis to RUE. S/P 2 units of PRBC. Of note, has hx of gastric bypass. HH 8.2/25.0. No obvious active GI bleeding. - Thrombocytopenia, Coagulopathy. Plt 24 today. PT 21.8, INR 1.9, APTT 41.8, fibrinogen 148. S/P 2 units FFP, 2 units of Plt 2 units, 1 unit cryoprecipitate. - Elevated LFTs, Alcoholic Hepatitis on underlying liver cirrhosis. 08/16/16 CT - --> 1. Spectrum of findings suggesting cirrhosis with splenomegaly, diffuse hepatic fatty infiltration and diffuse abdominal ascites. 2. Nonvisualization of the gallbladder characteristic of the reported history of cholecystectomy. T. Bili 9.7, AST 78, ALT 42, Alk Phosph 78, Pentoxifylline - Elevated Lipase. 873 today- No n/v, abdominal pain with this. No evidence of pancreatitis on CT. - AMS, likely combination of hepatic encephalopathy and DTs. Ammonia 23. Xifaxan/Lactulose QID. S/P MRI (08/17/16)---> no evidence of acute intracranial pathology. No masses are identitied - Dysphagia, failed swallow evaluation. Pt still with significant coagulopathy and thrombocytopenia and therefore hesitant to place NGT- would likely bleed. Palliative care consulted. Will await their evaluation. May need PPN. - Resp. Insuffiency. Pt with mildly tachypneic, labored breathing, course breath sounds. per ccm - GERD. PPI - RUE Edema/Ecchymosis. S/P CVT eval. No compartment syndrome. - Probable right flank hematoma. CT 08/06 probable 2.6 cm hematoma - Multiple electrolyte abnormalities. per primary - HTN, MAHENDRA, Depression. per primary - ETOH abuse. Librium per patient. PLAN: - NPO- reassess in am - Cont. Xifaxan - Lactulose QID - Cont. PPI - Cont. Pentoxifylline - Monitor labs - Consider EGD when more stable - Supportive care - If fails swallow eval again tomorrow, may need to consider PPN vs. Dobhoff- hesitant to place with his coagulopathy/thrombocytopenia. - Pt seen and examined by Dr. Moreno and myself and this note is written on his behalf (Lena Gabriel) Physician Comments Seen and examined Agree with above Continue with current supportive care Monitor labs (Max Moreno MD) Lena Gabriel Aug 17, 2016 17:32 Max Moreno MD Aug 17, 2016 21:44
--- NOTE | 2016-08-17 17:34 | PD.ONC.PN ---
Subjective Subjective Remarks Pt transferred to ICU due to altered mental status. Awake when I saw him this am. No c/o. No report of bleeding. Objective Data Date Time Temp Pulse Resp B/P Pulse Ox O2 Delivery O2 Flow Rate FiO2 08/17/16 16:00 98.0 77 14 183/77 98 08/17/16 12:00 99.6 78 16 128/62 98 08/17/16 08:00 99.1 83 28 131/63 93 08/17/16 08:00 79 08/17/16 07:00 92 Nasal Cannula 2.00 08/17/16 04:00 98.5 72 25 112/55 93 08/17/16 00:00 98.5 75 23 122/68 99 08/16/16 20:00 79 08/16/16 20:00 95.5 79 24 132/64 98 08/16/16 19:06 95 Nasal Cannula 2.00 08/16/16 19:00 96 Nasal Cannula 2.00 08/16/16 18:00 75 08/17/16 08/17/16 08/17/16 07:00 15:00 23:00 Intake Total 394 ml 656 ml Output Total 150 ml 750 ml Balance 244 ml -94 ml Result Diagram: 08/17/16 0508/17/16 05 Laboratory Results Laboratory Tests Test 08/17/16 05:21 White Blood Count 8.4 TH/MM3 Red Blood Count 2.32 MIL/MM3 Hemoglobin 8.2 GM/DL Hematocrit 25.0 % Mean Corpuscular Volume 107.8 FL Mean Corpuscular Hemoglobin 35.4 PG Mean Corpuscular Hemoglobin 32.8 % Concent Red Cell Distribution Width 23.4 % Platelet Count 24 TH/MM3 Mean Platelet Volume 8.7 FL Neutrophils (%) (Auto) 69.6 % Lymphocytes (%) (Auto) 16.5 % Monocytes (%) (Auto) 12.0 % Eosinophils (%) (Auto) 0.6 % Basophils (%) (Auto) 1.3 % Neutrophils # (Auto) 5.9 TH/MM3 Lymphocytes # (Auto) 1.4 TH/MM3 Monocytes # (Auto) 1.0 TH/MM3 Eosinophils # (Auto) 0.1 TH/MM3 Basophils # (Auto) 0.1 TH/MM3 CBC Comment AUTO DIFF Differential Total Cells 100 Counted Neutrophils % (Manual) 62 % Band Neutrophils % 14 % Lymphocytes % 12 % Monocytes % 10 % Basophils % 1 % Neutrophils # (Manual) 6.5 TH/MM3 Myelocytes 1 % Differential Comment FINAL DIFF MANUAL Toxic Granulation 1+ Platelet Estimate LOW Platelet Morphology Comment NORMAL Polychromasia 2.0 % Rouleau PRESENT Prothrombin Time 21.8 SEC Prothromb Time International 1.9 RATIO Ratio Activated Partial 41.8 SEC Thromboplast Time Fibrinogen 148 mg/dL Sodium Level 140 MEQ/L Potassium Level 3.6 MEQ/L Chloride Level 108 MEQ/L Carbon Dioxide Level 25.7 MEQ/L Anion Gap 6 MEQ/L Blood Urea Nitrogen 15 MG/DL Creatinine 0.85 MG/DL Estimat Glomerular Filtration 95 ML/MIN Rate Random Glucose 172 MG/DL Lactic Acid Level 1.8 mmol/L Calcium Level 7.5 MG/DL Phosphorus Level 2.1 MG/DL Magnesium Level 1.8 MG/DL Total Bilirubin 9.7 MG/DL Aspartate Amino Transf 78 U/L (AST/SGOT) Alanine Aminotransferase 42 U/L (ALT/SGPT) Alkaline Phosphatase 78 U/L Total Protein 6.9 GM/DL Albumin 1.5 GM/DL Culture Results Microbiology Date/Time Procedure Status Source Growth 08/16/16 13:35 Stool Occult Blood ([facility]) - Final Complete Stool Stool HEMOCCULT POSITIVE Imaging Studies Last 24 hours Impressions Head Magnetic Resonance Angiography 08/17/16 0000 Signed Impressions: Service Date/Time: July 15:17 - CONCLUSION: 1. Unremarkable MR angiography of the brain. Braydon Packer MD Brain MRI 08/17/16 0000 Signed Impressions: Service Date/Time: July 15:17 - CONCLUSION: 1. No evidence of acute intracranial pathology. No masses are identified. Braydon Packer MD Administered Medications Medications (Trade) Dose Ordered Sig/Ivan Route PRN Reason Start Time Stop Time Status Last Admin Dose Admin Sodium Chloride (NS Flush) 2 ml BID IV FLUSH 08/08/16 09:00 08/16/16 21:01 Naloxone HCl (Narcan Inj) 0.4 mg UNSCH PRN IV SEE LABEL COMMENTS 08/07/16 22:45 08/16/16 14:16 Clonidine (Catapres) 0.2 mg BID PO 08/08/16 09:00 08/17/16 09:04 Folic Acid (Folate) 1 mg DAILY PO 08/09/16 09:00 08/17/16 09:04 Pantoprazole Sodium (Protonix Inj) 40 mg Q12H IV PUSH 08/09/16 09:30 08/17/16 09:04 Pentoxifylline (TRENtal SR) 400 mg Q8HR PO 08/09/16 14:00 08/17/16 12:23 Rifaximin (Xifaxan) 550 mg BID PO 08/10/16 21:00 08/17/16 09:04 Lactulose (Lactulose Liq) 30 ml QID PO 08/11/16 13:00 08/17/16 12:22 Calcium Carbonate (Tums Chew) 500 mg BID PO 08/12/16 09:00 08/17/16 09:04 Furosemide (Lasix Inj) 40 mg DAILY IV PUSH 08/16/16 11:15 08/17/16 09:04 Chlorhexidine Gluconate (Chlorhexidine 2% Cloth) 3 pack DAILY@04 TOPICAL 08/17/16 04:00 08/21/16 04:01 08/17/16 04:00 Objective Remarks GENERAL: Lethargic but follow command. SKIN: Warm and dry. Facial ecchymosis resolving. HEAD: Normocephalic. EYES: No scleral icterus. No injection or drainage. NECK: Supple, trachea midline. No JVD or lymphadenopathy. LYMPHATIC: No adenopathy. CARDIOVASCULAR: Regular rate and rhythm without murmurs. RESPIRATORY: Breath sounds equal bilaterally. No accessory muscle use. GASTROINTESTINAL: Abdomen soft, non-tender, nondistended. EXTREMITIES: No cyanosis, or edema. RUE ecchymosis resolving, 1+edema MUSCULOSKELETAL: Adequate muscle tone. NEUROLOGICAL: No obvious focal deficit. Awake, lethargic Assessment/Plan Problem List: (1) Thrombocytopenia Status: Chronic Plan: --is acute on chronic. --underlying thrombocytopenia due to cirrhosis and splenomegaly. 08/16 Platelet stable. 08/17 Platelet trended slightly lower but no bleeding noted. (2) Anemia Status: Acute Plan: --multifactorial from bleeding and bone marrow suppression due to alcohol. --can also have vitamin deficiency given his history of gastric bypass surgery. 08/16 Hgb stable. 08/17 Hgb stable. (3) Coagulopathy Status: Acute Plan: -- due to liver disease from alcohol use. -s/p cryo and FFP 08/16 Fibrinogen is still low but no bleeding noted. 08/17 Fibrinogen trended up, no bleeding noted. Assessment 50y/o male admitted to [facility]. Hematology consulted for thrombocytopenia and anemia. history of alcohol abuse and cirrhosis with portal hypertension Gastric bypass surgery, cholecystectomy. Plan 1. monitor CBC and coags--will transfuse cryo for fibrinogen <100 or bleeding. Ronni Casarez MD Aug 17, 2016 17:33
[2016-08-17 20:00] VITALS: BP 159/59; PULSE 85; RESP 26; TEMP 98.7; O2SAT 94
--- NOTE | 2016-08-17 22:25 | HHI.PR ---
Subjective History of Present Illness Patient more alert today but still confused after narcan holding morphine still mumble agitation better discussed with [employer] [place] off restraints was in DT on librium and also thiamine and folic acid. have jaundice right hand swelling better, no Acute Issue low potassium resolved.. Low sodium better. Need endoscopy when stable.. check chest x- ray and on Lasix 40 mg PO Daily. d/w daughter yesterday over the phone about critical condition of patient. checked MRI/ MRA of brain within normal limits transferred to ICU Critical care consulted. Review of Systems Constitutional Constitutional Remarks ROS Unable to obtain because patient not communicating. GI/Abdomen GI/Abdomen Remarks Jaundice, Abdominal distention. Integumentary Skin Remarks Multiple right arm and chest Bruises Neurologic Neurologic: Confused Vitals/Results Intake & Output 08/16/16 08/16/16 08/17/16 15:00 23:00 07:00 Intake Total 414 ml 394 ml Output Total 1000 ml 150 ml Balance -586 ml 244 ml Intake Oral 0 ml 0 ml IV Total 414 ml 394 ml Output Urine Total 1000 ml 150 ml # Bowel Movements 0 0 Vital Signs Vital Signs Date Time Temp Pulse Resp B/P Pulse Ox O2 Delivery O2 Flow Rate FiO2 08/17/16 16:00 98.0 77 14 183/77 98 08/17/16 12:00 99.6 78 16 128/62 98 08/17/16 08:00 99.1 83 28 131/63 93 08/17/16 08:00 79 08/17/16 07:00 92 Nasal Cannula 2.00 08/17/16 04:00 98.5 72 25 112/55 93 08/17/16 00:00 98.5 75 23 122/68 99 CBC/BMP: 08/17/16 0521 08/17/16 0521 Lab Results Laboratory Tests Test 08/17/16 05:21 White Blood Count 8.4 TH/MM3 Red Blood Count 2.32 MIL/MM3 Hemoglobin 8.2 GM/DL Hematocrit 25.0 % Mean Corpuscular Volume 107.8 FL Mean Corpuscular Hemoglobin 35.4 PG Mean Corpuscular Hemoglobin 32.8 % Concent Red Cell Distribution Width 23.4 % Platelet Count 24 TH/MM3 Mean Platelet Volume 8.7 FL Neutrophils (%) (Auto) 69.6 % Lymphocytes (%) (Auto) 16.5 % Monocytes (%) (Auto) 12.0 % Eosinophils (%) (Auto) 0.6 % Basophils (%) (Auto) 1.3 % Neutrophils # (Auto) 5.9 TH/MM3 Lymphocytes # (Auto) 1.4 TH/MM3 Monocytes # (Auto) 1.0 TH/MM3 Eosinophils # (Auto) 0.1 TH/MM3 Basophils # (Auto) 0.1 TH/MM3 CBC Comment AUTO DIFF Differential Total Cells 100 Counted Neutrophils % (Manual) 62 % Band Neutrophils % 14 % Lymphocytes % 12 % Monocytes % 10 % Basophils % 1 % Neutrophils # (Manual) 6.5 TH/MM3 Myelocytes 1 % Differential Comment FINAL DIFF MANUAL Toxic Granulation 1+ Platelet Estimate LOW Platelet Morphology Comment NORMAL Polychromasia 2.0 % Rouleau PRESENT Prothrombin Time 21.8 SEC Prothromb Time International 1.9 RATIO Ratio Activated Partial 41.8 SEC Thromboplast Time Fibrinogen 148 mg/dL Sodium Level 140 MEQ/L Potassium Level 3.6 MEQ/L Chloride Level 108 MEQ/L Carbon Dioxide Level 25.7 MEQ/L Anion Gap 6 MEQ/L Blood Urea Nitrogen 15 MG/DL Creatinine 0.85 MG/DL Estimat Glomerular Filtration 95 ML/MIN Rate Random Glucose 172 MG/DL Lactic Acid Level 1.8 mmol/L Calcium Level 7.5 MG/DL Phosphorus Level 2.1 MG/DL Magnesium Level 1.8 MG/DL Total Bilirubin 9.7 MG/DL Aspartate Amino Transf 78 U/L (AST/SGOT) Alanine Aminotransferase 42 U/L (ALT/SGPT) Alkaline Phosphatase 78 U/L Total Protein 6.9 GM/DL Albumin 1.5 GM/DL Physical Exam General General Appearance: No Acute Distress, Comfortable Eyes Eye Exam: Pupils Equal, Pupils Reactive, Sclera White, Extraocular Movement Intact Throat Throat Exam: Oral Mucosa [place] & Moist, Oral Pharynx Normal Neck Neck Exam: Neck Supple, Trachea Midline Pulmonary Resp Exam: Clear Bilaterally, Breath Sounds Equal, No Distress Cardiology CV Exam: Regular, Normal Sinus Rhythm Gastrointestinal/Abdomen GI Exam: Soft, Non-Tender, Bowel Sounds Present Musculoskeletal MS Exam: Normal Tone, Unable to Ambulate MS Remarks swelling and bruises right upper extremity. Integumentary Skin Exam: Warm, Dry Skin Remarks Multiple Bruises right upper extremity and chest. yellow discoloration of skin and conjuctiva. Extremeties Extremities Exam: Moderate Edema Neurologic Neuro Exam: Alert, Awake, Moving All Extremities Neuro Remarks confused. VTE Prophylaxis VTE Prophylaxis Device: SCDs PUD Prophylasis PUD Prophylaxis: Protonix Assessment/Plan Assessment/Plan ASSESSMENT/PLAN This is 50-year-old male who came to the ER diagnosed with status post fall secondary to balance problem, secondary to the left acoustic neuroma removed and Alcohol intoxication causing multiple large bruises. Need to check the right upper extremity frequently for compartment syndrome, Vascular surgery input noted. Keep the right upper extremity elevated and frequently check neurovascular status. Acute anemia secondary to acute bleed in the right upper extremity. We will monitor H&H and s/p packed RBC blood transfusion. Low platelets secondary to alcoholic liver disease. Hematology input noted, s/p platelet transfusion. Hyponatremia. The patient is on normal saline. We will monitor, improving...better. Hypocalcemia. The patient is status post calcium gluconate. High LFTs secondary to alcoholic liver disease. GI input noted. Further recommendation per GI. High lipase. Alcohol abuse/Intoxication. The patient's alcohol level was 258. The patient advised to stop drinking alcohol. The patient is on DT prophylaxis, thiamine, folic acid and Librium.. Coagulopathy, INR was 1.9, secondary to alcohol liver disease. Generalized weakness secondary to multiple factor as dictated above. History of left acoustic neuroma status post removal, the patient has a balance problem DVT prophylaxis, SCD's. GI prophylaxis, Protonix. Altered mental status hepatic encephalopathy and DT Poor prognosis with advance liver disease. Hypokalemia resolved Check CBC with diff CMP in AM. We are going to manage the patient on a daily basis and make recommendations on a daily basis. Discussed Condition with: Patient Ramiro Perez MD Aug 17, 2016 22:25
[2016-08-17] MEDS: ALBUMIN HUMAN 25% 25 GM/100 ML BAGP IV SCH (23:44)
[2016-08-18] VITALS (7 sets, daily range): BP systolic 137–182; BP diastolic 65–86; PULSE 77–83; RESP 24–28; TEMP 97.9–98.6; O2SAT 92–100
[2016-08-18] MEDS: CHLORHEXIDINE GLUCONATE 2 % 1 PACK (2 CLOTHS)(taper/protocol) TOPICAL SCH (04:00)
[2016-08-18] MEDS: ALBUMIN HUMAN 25% 25 GM/100 ML BAGP IV SCH ×3 (05:03→20:07)
[2016-08-18] MEDS: PENTOXIFYLLINE 400 MG CONTROLLED RELEASE TAB PO SCH ×3 (05:04→20:07)
[2016-08-18] MEDS: INSULIN NovoLIN REGULAR SUPPLEMENTAL SCALE SQ SCH ×4 (06:49→20:23)
--- NOTE | 2016-08-18 08:26 | HHI.PR ---
Subjective History of Present Illness Patient more alert today but still confused and mumble agitation better off restraints was in DT on librium and also thiamine and folic acid. have jaundice right hand swelling better, no Acute Issue low potassium resolved.. Low sodium better. Need endoscopy when stable..d/w RN Erickson. check chest x- ray and on Lasix 40 mg PO Daily. MRI / MRA of Brain within normal limits. Review of Systems Constitutional Constitutional Remarks ROS Unable to obtain because patient not communicating. GI/Abdomen GI/Abdomen Remarks Jaundice, Abdominal distention. Integumentary Skin Remarks Multiple right arm and chest Bruises Neurologic Neurologic: Confused Vitals/Results Intake & Output 08/17/16 08/17/16 08/18/16 15:00 23:00 07:00 Intake Total 656 ml 527 ml 760 ml Output Total 750 ml 300 ml 300 ml Balance -94 ml 227 ml 460 ml Intake Oral 100 ml 100 ml 240 ml IV Total 556 ml 427 ml 520 ml Output Urine Total 750 ml 300 ml 300 ml # Bowel Movements 0 0 Vital Signs Vital Signs Date Time Temp Pulse Resp B/P Pulse Ox O2 Delivery O2 Flow Rate FiO2 08/18/16 04:00 98.4 78 26 139/67 92 08/18/16 00:00 98.4 77 27 137/65 94 08/17/16 20:00 98.7 85 26 159/59 94 08/17/16 20:00 85 08/17/16 19:00 94 Nasal Cannula 4.00 08/17/16 16:00 98.0 77 14 183/77 98 08/17/16 12:00 99.6 78 16 128/62 98 CBC/BMP: 08/17/16 0521 08/17/16 0521 Physical Exam General General Appearance: No Acute Distress, Comfortable Eyes Eye Exam: Pupils Equal, Pupils Reactive, Extraocular Movement Intact Eye Remarks yellow sclera. Throat Throat Exam: Oral Mucosa [place] & Moist, Oral Pharynx Normal Neck Neck Exam: Neck Supple, Trachea Midline Pulmonary Resp Exam: Clear Bilaterally, Breath Sounds Equal, No Distress Cardiology CV Exam: Regular, Normal Sinus Rhythm Gastrointestinal/Abdomen GI Exam: Soft, Non-Tender, Bowel Sounds Present Musculoskeletal MS Exam: Normal Tone, Unable to Ambulate MS Remarks swelling and bruises right upper extremity. Integumentary Skin Exam: Warm, Dry Skin Remarks Multiple Bruises right upper extremity and chest. yellow discoloration of skin and conjuctiva. Extremeties Extremities Exam: Moderate Edema Neurologic Neuro Exam: Alert, Awake, Moving All Extremities Neuro Remarks confused. VTE Prophylaxis VTE Prophylaxis Device: SCDs PUD Prophylasis PUD Prophylaxis: Protonix Assessment/Plan Assessment/Plan ASSESSMENT/PLAN This is 50-year-old male who came to the ER diagnosed with status post fall secondary to balance problem, secondary to the left acoustic neuroma removed and Alcohol intoxication causing multiple large bruises. Need to check the right upper extremity frequently for compartment syndrome, Vascular surgery input noted. Keep the right upper extremity elevated and frequently check neurovascular status. Acute anemia secondary to acute bleed in the right upper extremity. We will monitor H&H and s/p packed RBC blood transfusion. Low platelets secondary to alcoholic liver disease. Hematology input noted, s/p platelet transfusion. Hyponatremia. The patient is on normal saline. We will monitor, improving...better. Hypocalcemia. The patient is status post calcium gluconate. High LFTs secondary to alcoholic liver disease. GI input noted. Further recommendation per GI. High lipase. Alcohol abuse/Intoxication. The patient's alcohol level was 258. The patient advised to stop drinking alcohol. The patient is on DT prophylaxis, thiamine, folic acid and Librium.. Coagulopathy, INR was 1.9, secondary to alcohol liver disease. Generalized weakness secondary to multiple factor as dictated above. History of left acoustic neuroma status post removal, the patient has a balance problem DVT prophylaxis, SCD's. GI prophylaxis, Protonix. Altered mental status hepatic encephalopathy and DT Poor prognosis with advance liver disease. Hypokalemia resolved Check CBC with diff CMP in Ammonia level and Lipase in AM. We are going to manage the patient on a daily basis and make recommendations on a daily basis. Discussed Condition with: Patient Ramiro Perez MD Aug 18, 2016 08:26
[2016-08-18] MEDS: RIFAXIMIN 550 MG TAB PO SCH ×2 (08:53→20:07)
[2016-08-18] MEDS: FOLIC ACID 1 MG TAB PO SCH (08:53)
[2016-08-18] MEDS: PANTOPRAZOLE SODIUM 40 MG VIAL IV PUSH SCH ×2 (08:54→20:07)
[2016-08-18] MEDS: LACTULOSE SYRUP 20 GM/30 ML CUP PO SCH ×4 (08:54→20:07)
[2016-08-18] MEDS: cloNIDine HCL 0.2 MG TAB PO SCH ×2 (08:54→20:07)
[2016-08-18] MEDS: FUROSEMIDE 40 MG/4 ML VIAL IV PUSH SCH (08:54)
[2016-08-18] MEDS: CALCIUM CARBONATE 500 MG CHEWABLE TAB PO SCH ×2 (08:54→20:07)
[2016-08-18] MEDS: SODIUM CHLORIDE 0.9% FLUSH 10 ML FLUSH IV FLUSH SCH ×2 (08:57→20:06)
[2016-08-18 09:30] LABS: AUTOMATED NEUTROPHIL # 4.9 TH/MM3 (1.8-7.7); BASOPHIL # 0.1 TH/MM3 (0-0.2); EOSINOPHIL % 0.5 % (0.0-4.0); LYMPHOCYTE # 1.3 TH/MM3 (1.0-4.8); MEAN CELL VOLUME 108.1 FL (80.0-100.0); MEAN CORPUSCULAR HEMOGLOBIN 36.3 PG (27.0-34.0); MEAN CORPUSCULAR HGB CONC 33.6 % (32.0-36.0); NEUT % 69.5 % (16.0-70.0); PLATELET COUNT 25 TH/MM3 (150-450); RED BLOOD COUNT 2.32 MIL/MM3 (4.50-5.90); RED CELL DISTRIBUTION WIDTH 23.3 % (11.6-17.2); WHITE BLOOD COUNT 7.1 TH/MM3 (4.0-11.0)
[2016-08-18 09:45] LABS: HEMO FLAGS AUTO DIFF
--- NOTE | 2016-08-18 09:49 | HHI.GIFU ---
Subjective Remarks Resting in bed. Still very lethargic, but does seem to be responding slightly more today- follows commands. (Lena Gabriel) Objective Vitals I&O Vital Signs Date Time Temp Pulse Resp B/P Pulse Ox O2 Delivery O2 Flow Rate FiO2 08/18/16 08:00 97.9 80 28 182/86 97 08/18/16 08:00 80 08/18/16 07:00 92 Nasal Cannula 4.00 08/18/16 04:00 98.4 78 26 139/67 92 08/18/16 00:00 98.4 77 27 137/65 94 08/17/16 20:00 98.7 85 26 159/59 94 08/17/16 20:00 85 08/17/16 19:00 94 Nasal Cannula 4.00 08/17/16 16:00 98.0 77 14 183/77 98 08/17/16 12:00 99.6 78 16 128/62 98 I/O 08/17/16 08/17/16 08/17/16 08/18/16 08/18/16 08/18/16 07:00 15:00 23:00 07:00 15:00 23:00 Intake Total 394 ml 656 ml 527 ml 760 ml Output Total 150 ml 750 ml 300 ml 300 ml Balance 244 ml -94 ml 227 ml 460 ml Intake Oral 0 ml 100 ml 100 ml 240 ml IV Total 394 ml 556 ml 427 ml 520 ml Output Urine Total 150 ml 750 ml 300 ml 300 ml # Bowel Movements 0 0 0 Laboratory Date/Time Procedure Status Source Growth 08/16/16 13:35 Stool Occult Blood ([facility]) - Final Complete Stool Stool HEMOCCULT POSITIVE Imaging Last Impressions Head Magnetic Resonance Angiography 08/17/16 0000 Signed Impressions: Service Date/Time: July 15:17 - CONCLUSION: 1. Unremarkable MR angiography of the brain. Braydon Packer MD Brain MRI 08/17/16 0000 Signed Impressions: Service Date/Time: July 15:17 - CONCLUSION: 1. No evidence of acute intracranial pathology. No masses are identified. Braydon Packer MD Head CT 08/16/16 0000 Signed Impressions: Service Date/Time: Tuesday, August 16, 2016 16:22 - CONCLUSION: Stable exam with opacification of the left mastoid air cells again noted. Kian Guardado MD Chest X-Ray 08/16/16 0000 Signed Impressions: Service Date/Time: Tuesday, August 16, 2016 13:59 - CONCLUSION: 1. Hypoinflation with minimal bibasilar atelectatic changes but no confluent infiltrate. 2. Nasogastric tube with the tip just past the GE junction. This should probably be advanced 10-15 cm further into the stomach. Kishor Kim MD Abdomen Ultrasound 08/16/16 0000 Signed Impressions: Service Date/Time: Tuesday, August 16, 2016 14:38 - CONCLUSION: 1. Spectrum of findings suggesting cirrhosis with splenomegaly, diffuse hepatic fatty infiltration and diffuse abdominal ascites. 2. Nonvisualization of the gallbladder characteristic of the reported history of cholecystectomy. Kishor Kim MD Upper Extremity Ultrasound 08/08/16 0000 Signed Impressions: Service Date/Time: Monday, August 08, 2016 10:34 - CONCLUSION: Soft tissue swelling. Otherwise negative without DVT. Kishor Kim MD Physical Exam HEENT: Multiple ecchymotic areas to face, eyes appear jaundiced CHEST: Resp. shallow, course breath sounds, CARDIAC: RRR ABDOMEN: Soft, obese; nontender; bowel sounds are present in all four quadrants. EXTREMITIES: Significant edema and ecchymosis to RUE- + pulse SKIN: jaundice, Significant bruising- especially to face and UE ABLE BODIED SEAMAN: Lethargic. is following commands today (Lena Gabriel) Assessment and Plan Plan ASSESSMENT: - Anemia. No obvious active GI bleeding. Pt reports significant nose bleed when he originally fell, but denies any hematemesis, melena, or hematochezia. The nurse denies any obvious active bleeding. Of note, CT on 08/06 mentioned probable right flank hematoma and he has significant ecchymosis to RUE. S/P 2 units of PRBC. Of note, has hx of gastric bypass. No obvious active GI bleeding. Today's labs pending. - Thrombocytopenia, Coagulopathy. S/P 2 units FFP, 2 units of Plt 2 units, 1 unit cryoprecipitate. Today's labs pending. - Elevated LFTs, Alcoholic Hepatitis on underlying liver cirrhosis. DF 54.880. MELD 17 on addmission. 08/16/16 CT ---> 1. Spectrum of findings suggesting cirrhosis with splenomegaly, diffuse hepatic fatty infiltration and diffuse abdominal ascites. 2. Nonvisualization of the gallbladder characteristic of the reported history of cholecystectomy. Pentoxifylline. Today's labs pending. - Elevated Lipase. No evidence of pancreatitis on CT. Does not seem to have abdominal tenderness on exam. - AMS, likely combination of hepatic encephalopathy and DTs. Xifaxan/Lactulose QID. S/P MRI (08/17/16)---> no evidence of acute intracranial pathology. No masses are identified. Still lethargic, but following commands. - Dysphagia, failed swallow evaluation yesterday, but his lethargy is slightly better today and therefore will wait for ST evaluation today to see if he can have diet. - Resp. Insuffiency. Pt with mildly tachypneic, labored breathing, course breath sounds. per ccm - GERD. PPI - RUE Edema/Ecchymosis. S/P CVT eval. No compartment syndrome. - Probable right flank hematoma. CT 08/06 probable 2.6 cm hematoma - Multiple electrolyte abnormalities. per primary - HTN, MAHENDRA, Depression. per primary - ETOH abuse. Librium per patient. PLAN: - Await repeat Speech evaluation today - Cont. Xifaxan - Lactulose QID - Cont. PPI - Cont. Pentoxifylline - Monitor labs - Consider EGD when more stable - Supportive care - Pt seen and examined by Dr. Moreno and myself and this note is written on his behalf (Lena Gabriel) Physician Comments Patient seen and examined Agree with above Continue with current supportive care Monitor labs (Max Moreno MD) Lena Gabriel Aug 18, 2016 09:49 Max Moreno MD Aug 18, 2016 22:44
[2016-08-18 09:56] LABS: APTT (PATIENT) 40.8 SEC (24.3-30.1); INTERNATIONAL NORMALIZED RATIO 1.9 RATIO; PROTHROMBIN TIME - PATIENT 21.3 SEC (9.8-11.6)
[2016-08-18 10:00] LABS: ALKALINE PHOSPHATASE 74 U/L (45-117); ALT (GPT) 42 U/L (12-78); AMYLASE 125 U/L (25-115); ANION GAP 8 MEQ/L (5-15); AST (GOT) 85 U/L (15-37); BLOOD UREA NITROGEN 20 MG/DL (7-18); CHLORIDE 110 MEQ/L (98-107); GLOMERULAR FILTRATION RATE 106 ML/MIN (>89); MAGNESIUM 1.9 MG/DL (1.5-2.5); POTASSIUM 3.4 MEQ/L (3.5-5.1); SODIUM (NA) 141 MEQ/L (136-145); TOTAL BILIRUBIN ADULT 10.8 MG/DL (0.2-1.0)
[2016-08-18] MEDS: THIAMINE INJ 100 MG in SODIUM CHLORIDE 0.9% INJ 100 ML IV SCH (10:17)
[2016-08-18 10:23] LABS: BANDS 10 % (0-6); BASOPHILS 1 % (0-2); CORRECTED NUCLEATED RBC 1 /100 WBC (0-0); METAMYELOCYTES 1 % (0-1); NEUTROPHIL # MANUAL DIFF 5.9 TH/MM3 (1.8-7.7); POLYS (SEG NEUTROPHILS) 72 % (16-70); TOXIC GRANULATION 1+ (NORMAL); WBC DIFF SAMPLE 100
[2016-08-18 10:25] LABS: PLATELET ESTIMATE SMEAR LOW (NORMAL); PLATELET MORPHOLOGY NORMAL (NORMAL); SCAN/DIFF FINAL DIFF MANUAL
--- NOTE | 2016-08-18 13:19 | PD.ONC.PN ---
Subjective Subjective Remarks Afebrile overnight. patient lethargic and confused. No bleeding or events today per nurse. Objective Data Date Time Temp Pulse Resp B/P Pulse Ox O2 Delivery O2 Flow Rate FiO2 08/18/16 12:00 98.6 83 26 156/72 97 08/18/16 08:00 97.9 80 28 182/86 97 08/18/16 08:00 80 08/18/16 07:00 92 Nasal Cannula 4.00 08/18/16 04:00 98.4 78 26 139/67 92 08/18/16 00:00 98.4 77 27 137/65 94 08/17/16 20:00 98.7 85 26 159/59 94 08/17/16 20:00 85 08/17/16 19:00 94 Nasal Cannula 4.00 08/17/16 16:00 98.0 77 14 183/77 98 08/18/16 08/18/16 08/18/16 07:00 15:00 23:00 Intake Total 760 ml Output Total 300 ml Balance 460 ml Result Diagram: 08/18/16 0908 08/18/16 0908 Laboratory Results Laboratory Tests Test 08/18/16 09:08 White Blood Count 7.1 TH/MM3 Red Blood Count 2.32 MIL/MM3 Hemoglobin 8.4 GM/DL Hematocrit 25.0 % Mean Corpuscular Volume 108.1 FL Mean Corpuscular Hemoglobin 36.3 PG Mean Corpuscular Hemoglobin 33.6 % Concent Red Cell Distribution Width 23.3 % Platelet Count 25 TH/MM3 Mean Platelet Volume 8.7 FL Neutrophils (%) (Auto) 69.5 % Lymphocytes (%) (Auto) 18.0 % Monocytes (%) (Auto) 11.0 % Eosinophils (%) (Auto) 0.5 % Basophils (%) (Auto) 1.0 % Neutrophils # (Auto) 4.9 TH/MM3 Lymphocytes # (Auto) 1.3 TH/MM3 Monocytes # (Auto) 0.8 TH/MM3 Eosinophils # (Auto) 0.0 TH/MM3 Basophils # (Auto) 0.1 TH/MM3 CBC Comment AUTO DIFF Differential Total Cells 100 Counted Neutrophils % (Manual) 72 % Band Neutrophils % 10 % Lymphocytes % 8 % Monocytes % 8 % Basophils % 1 % Neutrophils # (Manual) 5.9 TH/MM3 Metamyelocytes 1 % Nucleated Red Blood Cells 1 /100 WBC Differential Comment FINAL DIFF MANUAL Toxic Granulation 1+ Platelet Estimate LOW Platelet Morphology Comment NORMAL Prothrombin Time 21.3 SEC Prothromb Time International 1.9 RATIO Ratio Activated Partial 40.8 SEC Thromboplast Time Fibrinogen 153 mg/dL Sodium Level 141 MEQ/L Potassium Level 3.4 MEQ/L Chloride Level 110 MEQ/L Carbon Dioxide Level 23.0 MEQ/L Anion Gap 8 MEQ/L Blood Urea Nitrogen 20 MG/DL Creatinine 0.77 MG/DL Estimat Glomerular Filtration 106 ML/MIN Rate Random Glucose 170 MG/DL Calcium Level 7.8 MG/DL Phosphorus Level 2.2 MG/DL Magnesium Level 1.9 MG/DL Total Bilirubin 10.8 MG/DL Aspartate Amino Transf 85 U/L (AST/SGOT) Alanine Aminotransferase 42 U/L (ALT/SGPT) Alkaline Phosphatase 74 U/L Ammonia 20 MCMOL/L Total Protein 7.3 GM/DL Albumin 2.1 GM/DL Amylase Level 125 U/L Lipase 2131 U/L Culture Results Microbiology Date/Time Procedure Status Source Growth 08/16/16 13:35 Stool Occult Blood ([facility]) - Final Complete Stool Stool HEMOCCULT POSITIVE Administered Medications Medications (Trade) Dose Ordered Sig/Ivan Route PRN Reason Start Time Stop Time Status Last Admin Dose Admin Sodium Chloride (NS Flush) 2 ml BID IV FLUSH 08/08/16 09:00 08/18/16 08:57 Naloxone HCl (Narcan Inj) 0.4 mg UNSCH PRN IV SEE LABEL COMMENTS 08/07/16 22:45 08/16/16 14:16 Clonidine (Catapres) 0.2 mg BID PO 08/08/16 09:00 08/18/16 08:54 Folic Acid (Folate) 1 mg DAILY PO 08/09/16 09:00 08/18/16 08:53 Pantoprazole Sodium (Protonix Inj) 40 mg Q12H IV PUSH 08/09/16 09:30 08/18/16 08:54 Pentoxifylline (TRENtal SR) 400 mg Q8HR PO 08/09/16 14:00 08/18/16 05:04 Rifaximin (Xifaxan) 550 mg BID PO 08/10/16 21:00 08/18/16 08:53 Lactulose (Lactulose Liq) 30 ml QID PO 08/11/16 13:00 08/18/16 08:54 Calcium Carbonate (Tums Chew) 500 mg BID PO 08/12/16 09:00 08/18/16 08:54 Furosemide (Lasix Inj) 40 mg DAILY IV PUSH 08/16/16 11:15 08/18/16 08:54 Chlorhexidine Gluconate 3 pack 3 pack DAILY@04 TOPICAL 08/17/16 04:00 08/21/16 04:01 08/18/16 04:00 Thiamine HCl/ Sodium Chloride (Thiamine Inj/NS Inj) 101 ml @ 101 mls/hr DAILY IV 08/18/16 09:00 08/18/16 10:17 Albumin Human (Albumin 25% Inj) 25 gm Q8H IV 08/17/16 22:00 08/20/16 21:59 08/18/16 05:03 Objective Remarks GENERAL: chronically ill male, lying in bed sleeping on approach SKIN: Warm and dry. scattered bruising. HEAD: Normocephalic. EYES: No injection or drainage. NECK: Supple, trachea midline. CARDIOVASCULAR: Regular rate and rhythm RESPIRATORY: Breath sounds equal bilaterally. No accessory muscle use. GASTROINTESTINAL: Abdomen soft, non-tender, nondistended. EXTREMITIES: No cyanosis. improving ecchymoses and edema in RUE NEURO: lethargic, arousable to physical stimuli, then falls right back asleep Assessment/Plan Problem List: (1) Thrombocytopenia Status: Chronic Plan: --is acute on chronic. --underlying thrombocytopenia due to cirrhosis and splenomegaly. 08/16 Platelet stable. 08/17 Platelet trended slightly lower but no bleeding noted. 08/18: platelets stable at 25K (2) Anemia Status: Acute Plan: --multifactorial from bleeding and bone marrow suppression due to alcohol. --can also have vitamin deficiency given his history of gastric bypass surgery. (3) Coagulopathy Status: Acute Plan: -- due to liver disease from alcohol use. Assessment 50y/o male admitted to [facility]. Hematology consulted for thrombocytopenia and anemia. history of alcohol abuse and cirrhosis with portal hypertension Gastric bypass surgery, cholecystectomy. Plan 1. monitor CBC and coags 2. no bleeding. 3. give cryo if fibrinogen is less 100 or bleeding. Attending Statement The exam, history, and the medical decision-making described in the above note were completed with the assistance of the mid-level provider. I reviewed and agree with the findings presented. I attest that I had a [id number] encounter with the patient on the same day, and personally performed and documented my assessment and findings in the medical record. Pt is confused. No overt bleeding noted, Hgb stable. Fibrinogen trending up. Transfuse platelet if platelet <20K or any evidence of bleeding. Can transfuse fibrinogen prn. Radha Wright Aug 18, 2016 13:18 Ronni Casarez MD Aug 18, 2016 16:52
--- NOTE | 2016-08-18 16:49 | HHI.HCPN ---
Reason for visit a. To assist with evaluation and management of symptoms including:pain, dyspnea b. To assist medical decision maker(s) with: better understanding of current medical conditions; weighing benefits/burdens of medical treatment options; making medical treatment decisions. Subjective/Interval History Patient is more awake and alert today. He attempts to talk. However, it is difficult to understand him as words are thick. He does however have understanding to questions asked and is able to follow commands , but is unclear how much insight or comprehension. He has to his current clinical state. He was tested for swallow twice today and was cleared for thickened with liquids , however nurse states he needs considerable encouragement. States she is having less pain in his right arm. He is able to tell me that he was in the , served in the [employer] for 6 years. I was able to speak with his daughter. Discussed hospice in light of his clinical prognosis. She agrees. Hospice consult placed Advance Directives Living Will: Never completed Health Care Surrogate: Never completed Durable Power of Overseer Kosher Kitchen: Never completed Advance Directive Specifics Health Care Surrogate(s): Per [place] statutes. Patient's daughter and/or other adult children would serve as decision makers. Need to get further information Significant change in goals: DaughterAlexandra opts for no code DNR status Objective Vital Signs Date Time Temp Pulse Resp B/P Pulse Ox O2 Delivery O2 Flow Rate FiO2 08/18/16 12:00 98.6 83 26 156/72 97 08/18/16 08:00 97.9 80 28 182/86 97 08/18/16 08:00 80 08/18/16 07:00 92 Nasal Cannula 4.00 08/18/16 04:00 98.4 78 26 139/67 92 08/18/16 00:00 98.4 77 27 137/65 94 08/17/16 20:00 98.7 85 26 159/59 94 08/17/16 20:00 85 08/17/16 19:00 94 Nasal Cannula 4.00 Intake & Output 08/18/16 08/18/16 07:00 19:00 Intake Total 1287 ml 1436 ml Output Total 600 ml 3900 ml Balance 687 ml -2464 ml Intake Oral 340 ml 200 ml IV Total 947 ml 1036 ml Albumin 200 ml Output Urine Total 600 ml 3900 ml # Bowel Movements 0 0 Physical Exam CONSTITUTIONAL/GENERAL: This is an obese male, who appears uncomfortable TUBES/LINES/DRAINS: Nasal cannula, Bowers catheter SKIN: jaundice, rashes, or lesions. Massive dense bruise to right arm, facial lacerations as well as bruising. Multiple tattoos Not diaphoretic. HEAD: Multiple facial lacerations and bruising , Normocephalic. EYES: Pupils equal and round and reactive. scleral icterus, Extraocular motions intact. . Some injection and drainage. ENT: Hearing grossly normal. Nose with evidence of old bleeding or no purulent drainage. Mouth dry with visible erythema, exudates, masses, or lesions. NECK: Trachea midline. Supple, nontender. No palpable thyroid enlargement or nodularity. CARDIOVASCULAR: Regular rate and rhythm without murmurs, gallops, or rubs. No JVD. Peripheral pulses symmetric. RESPIRATORY/CHEST: Symmetric, unlabored respirations. Coarse breath sounds/ rhonchi anteriorly, diminished posteriorly Clear to auscultation. GASTROINTESTINAL: Large, soft, distended, ascitic wave, no pitting edema, , Bowel sounds present. GENITOURINARY: Without palpable bladder distension. Bowers catheter in place. MUSCULOSKELETAL: Extremities without clubbing, cyanosis, or edema. No joint tenderness or effusion noted. No calf tenderness. No mottling or clubbing. LYMPHATICS: No palpable cervical or supraclavicular adenopathy. NEUROLOGICAL: Awake and alert, aware of state and city. Follows some commands. Cognitively dull. Tries to speak words difficult to understand PSYCHIATRIC: Calm at this time Diagnostic Tests Laboratory Laboratory Tests Test 08/16/16 08/16/16 08/17/16 08/18/16 05:56 14:00 05:21 09:08 White Blood Count 7.6 TH/MM3 8.4 TH/MM3 7.1 TH/MM3 (4.0-11.0) (4.0-11.0) (4.0-11.0) Red Blood Count 2.43 MIL/MM3 2.32 MIL/MM3 2.32 MIL/MM3 (4.50-5.90) (4.50-5.90) (4.50-5.90) Hemoglobin 8.8 GM/DL 8.2 GM/DL 8.4 GM/DL (13.0-17.0) (13.0-17.0) (13.0-17.0) Hematocrit 25.8 % 25.0 % 25.0 % (39.0-51.0) (39.0-51.0) (39.0-51.0) Mean Corpuscular Volume 105.9 FL 107.8 FL 108.1 FL (80.0-100.0) (80.0-100.0) (80.0-100.0) Mean Corpuscular Hemoglobin 36.1 PG 35.4 PG 36.3 PG (27.0-34.0) (27.0-34.0) (27.0-34.0) Mean Corpuscular Hemoglobin 34.1 % 32.8 % 33.6 % Concent (32.0-36.0) (32.0-36.0) (32.0-36.0) Red Cell Distribution Width 22.9 % 23.4 % 23.3 % (11.6-17.2) (11.6-17.2) (11.6-17.2) Platelet Count 28 TH/MM3 24 TH/MM3 25 TH/MM3 (150-450) (150-450) (150-450) Mean Platelet Volume 8.5 FL 8.7 FL 8.7 FL (7.0-11.0) (7.0-11.0) (7.0-11.0) Neutrophils (%) (Auto) 74.3 % 69.6 % 69.5 % (16.0-70.0) (16.0-70.0) (16.0-70.0) Lymphocytes (%) (Auto) 13.7 % 16.5 % 18.0 % (9.0-44.0) (9.0-44.0) (9.0-44.0) Monocytes (%) (Auto) 11.2 % 12.0 % 11.0 % (0.0-8.0) (0.0-8.0) (0.0-8.0) Eosinophils (%) (Auto) 0.3 % (0.0-4.0) 0.6 % (0.0-4.0) 0.5 % (0.0-4.0) Basophils (%) (Auto) 0.5 % (0.0-2.0) 1.3 % (0.0-2.0) 1.0 % (0.0-2.0) Neutrophils # (Auto) 5.7 TH/MM3 5.9 TH/MM3 4.9 TH/MM3 (1.8-7.7) (1.8-7.7) (1.8-7.7) Lymphocytes # (Auto) 1.0 TH/MM3 1.4 TH/MM3 1.3 TH/MM3 (1.0-4.8) (1.0-4.8) (1.0-4.8) Monocytes # (Auto) 0.9 TH/MM3 1.0 TH/MM3 0.8 TH/MM3 (0-0.9) (0-0.9) (0-0.9) Eosinophils # (Auto) 0.0 TH/MM3 0.1 TH/MM3 0.0 TH/MM3 (0-0.4) (0-0.4) (0-0.4) Basophils # (Auto) 0.0 TH/MM3 0.1 TH/MM3 0.1 TH/MM3 (0-0.2) (0-0.2) (0-0.2) CBC Comment AUTO DIFF AUTO DIFF AUTO DIFF Differential Total Cells 100 100 100 Counted Neutrophils % (Manual) 64 % (16-70) 62 % (16-70) 72 % (16-70) Band Neutrophils % 23 % (0-6) 14 % (0-6) 10 % (0-6) Lymphocytes % 2 % (9-44) 12 % (9-44) 8 % (9-44) Monocytes % 8 % (0-8) 10 % (0-8) 8 % (0-8) Eosinophils % 2 % (0-4) Neutrophils # (Manual) 6.7 TH/MM3 6.5 TH/MM3 5.9 TH/MM3 (1.8-7.7) (1.8-7.7) (1.8-7.7) Metamyelocytes 1 % (0-1) 1 % (0-1) Differential Comment FINAL DIFF FINAL DIFF FINAL DIFF MANUAL MANUAL MANUAL Platelet Estimate LOW (NORMAL) LOW (NORMAL) LOW (NORMAL) Platelet Morphology Comment NORMAL NORMAL NORMAL (NORMAL) (NORMAL) (NORMAL) Prothrombin Time 22.3 SEC 21.8 SEC 21.3 SEC (9.8-11.6) (9.8-11.6) (9.8-11.6) Prothromb Time International 2.0 RATIO 1.9 RATIO 1.9 RATIO Ratio Activated Partial 41.6 SEC 41.8 SEC 40.8 SEC Thromboplast Time (24.3-30.1) (24.3-30.1) (24.3-30.1) Fibrinogen 117 mg/dL 148 mg/dL 153 mg/dL (227-377) (227-377) (227-377) Sodium Level 139 MEQ/L 140 MEQ/L 141 MEQ/L (136-145) (136-145) (136-145) Potassium Level 3.5 MEQ/L 3.6 MEQ/L 3.4 MEQ/L (3.5-5.1) (3.5-5.1) (3.5-5.1) Chloride Level 108 MEQ/L 108 MEQ/L 110 MEQ/L (98-107) (98-107) (98-107) Carbon Dioxide Level 22.0 MEQ/L 25.7 MEQ/L 23.0 MEQ/L (21.0-32.0) (21.0-32.0) (21.0-32.0) Anion Gap 9 MEQ/L (5-15) 6 MEQ/L (5-15) 8 MEQ/L (5-15) Blood Urea Nitrogen 8 MG/DL (7-18) 15 MG/DL (7-18) 20 MG/DL (7-18) Creatinine 0.80 MG/DL 0.85 MG/DL 0.77 MG/DL (0.60-1.30) (0.60-1.30) (0.60-1.30) Estimat Glomerular Filtration 102 ML/MIN 95 ML/MIN (>89) 106 ML/MIN Rate (>89) (>89) Random Glucose 181 MG/DL 172 MG/DL 170 MG/DL (74-106) (74-106) (74-106) Calcium Level 7.5 MG/DL 7.5 MG/DL 7.8 MG/DL (8.5-10.1) (8.5-10.1) (8.5-10.1) Total Bilirubin 10.5 MG/DL 9.7 MG/DL 10.8 MG/DL (0.2-1.0) (0.2-1.0) (0.2-1.0) Aspartate Amino Transf 92 U/L (15-37) 78 U/L (15-37) 85 U/L (15-37) (AST/SGOT) Alanine Aminotransferase 44 U/L (12-78) 42 U/L (12-78) 42 U/L (12-78) (ALT/SGPT) Alkaline Phosphatase 82 U/L (45-117) 78 U/L (45-117) 74 U/L (45-117) Ammonia 23 MCMOL/L 20 MCMOL/L (11-32) (11-32) Total Protein 7.0 GM/DL 6.9 GM/DL 7.3 GM/DL (6.4-8.2) (6.4-8.2) (6.4-8.2) Albumin 1.6 GM/DL 1.5 GM/DL 2.1 GM/DL (3.4-5.0) (3.4-5.0) (3.4-5.0) Lipase 873 U/L 2131 U/L (73-393) (73-393) Nasal Screen MRSA (PCR) MRSA NOT DETECTED (NOT DETECT) Basophils % 1 % (0-2) 1 % (0-2) Myelocytes 1 % (0-0) Toxic Granulation 1+ (NORMAL) 1+ (NORMAL) Polychromasia 2.0 % (0.0-1.9) Rouleau PRESENT (NORMAL) Lactic Acid Level 1.8 mmol/L (0.4-2.0) Phosphorus Level 2.1 MG/DL 2.2 MG/DL (2.5-4.9) (2.5-4.9) Magnesium Level 1.8 MG/DL 1.9 MG/DL (1.5-2.5) (1.5-2.5) Nucleated Red Blood Cells 1 /100 WBC (0-0) Amylase Level 125 U/L (25-115) Result Diagram: 08/18/16 0908 08/18/16 0908 Microbiology Microbiology Date/Time Procedure Status Source Growth 08/16/16 13:35 Stool Occult Blood (IZABEL) - Final Complete Stool Stool HEMOCCULT POSITIVE Imaging Last 72 hours Impressions Head Magnetic Resonance Angiography 08/17/16 Signed Impressions: Service Date/Time: July 15:17 - CONCLUSION: 1. Unremarkable MR angiography of the brain. Braydon Packer MD Brain MRI 08/17/16 Signed Impressions: Service Date/Time: July 15:17 - CONCLUSION: 1. No evidence of acute intracranial pathology. No masses are identified. Braydon Packer MD Head CT 08/16/16 Signed Impressions: Service Date/Time: Tuesday, August 16, 2016 16:22 - CONCLUSION: Stable exam with opacification of the left mastoid air cells again noted. Kian Guardado MD Chest X-Ray 08/16/16 Signed Impressions: Service Date/Time: Tuesday, August 16, 2016 13:59 - CONCLUSION: 1. Hypoinflation with minimal bibasilar atelectatic changes but no confluent infiltrate. 2. Nasogastric tube with the tip just past the GE junction. This should probably be advanced 10-15 cm further into the stomach. Kishor Kim MD Abdomen Ultrasound 08/16/16 Signed Impressions: Service Date/Time: Tuesday, August 16, 2016 14:38 - CONCLUSION: 1. Spectrum of findings suggesting cirrhosis with splenomegaly, diffuse hepatic fatty infiltration and diffuse abdominal ascites. 2. Nonvisualization of the gallbladder characteristic of the reported history of cholecystectomy. Kishor Kim MD Assessment and Plan Disease Oriented Problem List: (1) Thrombocytopenia (2) Coagulopathy (3) Cirrhosis (4) Alcohol abuse (5) Change in mental status Symptom Scale: (1) Pain 0-10 Scale: 4 Comment: He denies pain at this time, although he states he is uncomfortable. In light of recent falls and extensive bruise. In addition to prior history of joint replacements. He likely have a fair amount of pain. However, he is unable to adequately express that (2) Confusion 0-10 Scale: Unable to quantify Comment: Cognitive state is dull possible underlying encephalopathy (3) Dyspnea 0-10 Scale: 3 Pertinent Non-Medical Issues Psychosocial: 50-year-old male, disabled, single, living alone, has one daughter, served [employer] for 6 years Spiritual: Unknown at this time Legal: His daughterAlexandra is his healthcare decision maker under [place] statute. There are no other children Ethical issues impacting care: Patient is unable unable to make decisions at this time Important Contacts Daughter Alexandra Arias, daughter work phone #[phone] Prognosis Prognosis: Prognosis is poor in light of his overall clinical state. At this point in time. He would need to quit drinking to provide him with more days to his life. However, should he continue to drink. He would likely need his demise earlier. Meld is currently 23. Considering that platelet count is around 20 to 30,000 and his INR is over 2 i.e. being fully anticoagulated despite the fact ge is not on Coumadin puts him on ADILENE 4 criteria category in addition to ascites and liver failure, elevated ammonia and bilirubin. With this MELD score, this patient's survival is less than one year average just by natural history of the disease. Code Status: No Code Plan Decision Maker: Daughter, Alexandra Arias, , per [place] statutes. She is the only daughter Code Status: Alexandra elects No CODE STATUS/DNR Family Discussion: I had the opportunity to speak with his daughter, Alexandra by phone today. She is the only daughter. We talked about hospice and his clinical eligibility as well as service benefits. Talked about prognosis and uncertainty of his future clinical course relative to functional status as well as neurologic status. Discussed that the disease process is one of a declining nature and that only time he will become more confused and lethargic. She asked how much time he had and advised her that he likely has weeks to months. He will be unable to live alone. Would recommend care center placement to determine for medical management and then possibly transition to [facility] Hospice consult : Daughter Agrees to hospice placement Symptoms: Pain, dyspnea, confusion, Palliative care phone number provided - will follow during hospital stay. Attestation To help prompt me to consider important information that might be impacting today's encounter and assessment, information from prior notes written by myself or my colleagues may have been "brought forward" into today's note. My signature on this note, however, is an attestation that I personally performed the exam, history, and/or decision-making noted today, and, unless otherwise indicated, the interactions with patient, family, and staff as well as the review of records all occurred today. I also attest that the listed assessment and stated plan reflect my best clinical judgment today based on the combination of historical information, prior notes, and today's exam/ interactions. When time spent is documented, it refers only to time spent today by the signer, or if indicated, combined time spent today by collaborating physician/nurse practitioner. Joanie Field [facility] Aug 18, 2016 16:49
--- NOTE | 2016-08-18 18:21 | HHI.CCPN ---
Subjective Remarks/Hospital Course 50-year-old male. He admission 08/09/2016. Date of consultation 2016. Past medical history includes EtOH abuse, portal hypertension, abdominal ascites, liver cirrhosis, gastroesophageal disease, depression, osteoarthritis hypertension and tobaccoism. Patient is admitted 08/09/2016 after recurrent falls at home. Patient originally presented to the [place] ED complaining of right arm pain after fall. He refuses admission and went home and began to drink again from the bathroom connected up. He is noted to have extreme upper extremity swelling and thrombocytopenia. After admission patient was transferred to [facility] [place] for evaluation for possible compartment syndrome. Patient was evaluated by Dr. Neumann. Negative ultrasound. Adequate pulses. No surgical intervention required. Diabetic doctor to transfuse 2 units PRBCs, 2 pack platelets, 2 FFP and one cryoprecipitate since admission. Secondary to his underlying liver cirrhosis/ disease. E platelet count of 28,000. He was seen by gastroenterology.. Started on Xifaxan for elevated ammonia. Also on pentoxifylline 400 3 times a day for liver disease. Meld score is currently 23. Patient received morphine and Ativan early this morning. Patient was transferred due to altered mental status. Received 0.4 mg Narcan in currently back to baseline mental status. CT head will be ordered along with ABG. Abdominal ultrasound revealed liver ascites, liver cirrhosis 08/17: Meld score currently 22. Afebrile. Mumbling words somewhat legible. Following commands. Very weak subjectively. No active bleeding. Subjective 08/18: Afebrile. Currently on 5 L nasal cannula. Continues to mumble words. Very weak strength. No active bleeding. Objective Vital Signs Date Time Temp Pulse Resp B/P Pulse Ox O2 Delivery O2 Flow Rate FiO2 08/18/16 16:00 98.4 79 25 157/77 99 08/18/16 07:00 Nasal Cannula 4.00 Intake and Output 08/17/16 08/17/16 08/18/16 08:00 16:00 00:00 Intake Total 394 ml 656 ml 527 ml Output Total 150 ml 750 ml 300 ml Balance 244 ml -94 ml 227 ml Result Diagram: 08/18/16 0908 08/18/16 0908 Other Results Microbiology Date/Time Procedure Status Source Growth 08/16/16 13:35 Stool Occult Blood (IZABEL) - Final Complete Stool Stool HEMOCCULT POSITIVE Imaging Last Impressions Head Magnetic Resonance Angiography 08/17/16 Signed Impressions: Service Date/Time: July 15:17 - CONCLUSION: 1. Unremarkable MR angiography of the brain. Braydon Packer MD Brain MRI 08/17/16 Signed Impressions: Service Date/Time: July 15:17 - CONCLUSION: 1. No evidence of acute intracranial pathology. No masses are identified. Braydon Packer MD Head CT 08/16/16 Signed Impressions: Service Date/Time: Tuesday, August 16, 2016 16:22 - CONCLUSION: Stable exam with opacification of the left mastoid air cells again noted. Kian Guardado MD Chest X-Ray 08/16/16 Signed Impressions: Service Date/Time: Tuesday, August 16, 2016 13:59 - CONCLUSION: 1. Hypoinflation with minimal bibasilar atelectatic changes but no confluent infiltrate. 2. Nasogastric tube with the tip just past the GE junction. This should probably be advanced 10-15 cm further into the stomach. Kishor Kim MD Abdomen Ultrasound 08/16/16 Signed Impressions: Service Date/Time: Tuesday, August 16, 2016 14:38 - CONCLUSION: 1. Spectrum of findings suggesting cirrhosis with splenomegaly, diffuse hepatic fatty infiltration and diffuse abdominal ascites. 2. Nonvisualization of the gallbladder characteristic of the reported history of cholecystectomy. Kishor Kim MD Upper Extremity Ultrasound 08/08/16 Signed Impressions: Service Date/Time: Monday, August 08, 2016 10:34 - CONCLUSION: Soft tissue swelling. Otherwise negative without DVT. Kishor Kim MD Objective Remarks GENERAL: 50-year-old male, critically ill currently resting in bed delirious SKIN: Warm and dry. Multiple tattoos on thorax/upper and lower extremities. Significant ecchymoses right upper extremity HEAD: Atraumatic. Normocephalic. EYES: Pupils equal and round about 2 mm bilaterally and reactive. + scleral icterus. No injection or drainage. ENT: No nasal bleeding or discharge. Mucous membranes pink and moist. NECK: Trachea midline. No JVD. CARDIOVASCULAR: Regular rate and rhythm. S1, S2. No S4. Without murmur, clicks, gallops or rubs RESPIRATORY: Clear to auscultation. Breath sounds equal bilaterally. GASTROINTESTINAL: Abdomen distended, nontender. Possible right flank hematoma. Hypoactive bowel sounds. Positive succussion splash MUSCULOSKELETAL: Extremities with 1+ lower extremity pitting edema. No obvious deformities. Significant ecchymosis due to right upper extremity trauma/ ecchymosis and edema. NEUROLOGICAL: Awake and alert. No obvious cranial nerve deficits. Motor grossly within normal limits. Five out of 5 muscle strength in the arms and legs. Slurred speech Awake and alert oriented to person, time but not place. A/P Assessment and Plan Neuro/Psych: Toxic metabolic encephalopathy EtOH abuse Chronic narcotic use Depression CT head revealed no acute intracranial findings. Left mastoiditis noted. Currently on Librium 25 mg by mouth 3 times a day as needed for EtOH withdrawal. Switch to oxycodone 5 mg liquid every 6 hours when necessary pain. Ativan/morphine discontinued Received Narcan 0.4 mg IV 1 with resolution of altered mental status MRI/MRA brain 08/17 revealed no acute intracranial abnormality/no aneurysm/ bleeding CV: History of hypertension Home medications clonidine 0.2 mg by mouth twice a day Currently on D5 normal saline at 70 cc an hour. Resp: Ongoing tobaccoism Nasal cannula to maintain saturations greater than equal to 92%. Currently on 5 L Incentive spirometry awake As needed bronchodilator therapy every 6 hours GI: Elevated lipase Hypoalbuminemia Elevated ammonia level Abdominal ascites Portal hypertension Liver cirrhosis History of perforated colon/gastric ulcer Elevated AST Meld score is currently 24 Currently on Xifaxan 550 twice a day and lactulose 30 cc 4 times a day for elevated ammonia. On pentoxifylline 400 mg 3 times a day for underlying liver failure Abdominal ultrasound revealed gross ascites, cirrhotic appearing liver. Non visualization of gallbladder. Protonix 40 mg IV twice a day Receiving albumin 25 g IV every 8 hours as 3 dosages. : Bowers is not indicated due to gross thrombocytopenia Endo: Sliding scale insulin if indicated to maintain euglycemia Renal: Kidney function currently within normal limits. Follow-up creatinine in a.m. Heme: Macrocytic anemia Thrombocytopenia Low fibrinogen Elevated INR Seen in consultation by Dr. Casarez/hematology - secondary to underlying liver disease Transfuse 2 units PRBCs, 2 packets, 2 FFP and 1 cryoprecipitate since admission Recheck coags/fibrinogen a.m. it INR currently 1.9. Fibrinogen 148. Currently no active bleeding. ID: Monitor for infection FEN: Hypocalcemia Replace electrolytes as clinically indicated Currently on calcium carbonate 500 twice a day. MSK: PT evaluate and treat Access - Utilize peripheral IV. Central if indicated Prophylaxis - GI - Protonix - DVT - SCD/no pharmacological prophylaxis in light of low platelets Critical Care: The total care time was 35 minutes. Time to perform other separately billable procedures was not included in the critical care time. Decision Maker: Daughter, Alexandra Arias, , per [place] statutes. She is the only daughter. She agrees to transition to hospice. Patient is currently DNR. [facility] as patient making transition to hospice. Aj Malcolm MD Aug 18, 2016 18:21 Aj Malcolm MD Aug 18, 2016 18:21
[2016-08-19] VITALS (7 sets, daily range): BP systolic 161–173; BP diastolic 74–80; PULSE 79–93; RESP 28–30; TEMP 98.7–100; O2SAT 90–97
[2016-08-19] MEDS: CHLORHEXIDINE GLUCONATE 2 % 1 PACK (2 CLOTHS)(taper/protocol) TOPICAL SCH (04:00)
[2016-08-19] MEDS: PENTOXIFYLLINE 400 MG CONTROLLED RELEASE TAB PO SCH ×2 (05:11→13:01)
[2016-08-19] MEDS: ALBUMIN HUMAN 25% 25 GM/100 ML BAGP IV SCH ×2 (05:11→13:00)
--- NOTE | 2016-08-19 06:46 | HHI.PR ---
Subjective History of Present Illness Patient awake and alert today but still confused Poor prognosis Hospice consulted ok to dc under hospice care. low potassium will replace and check magnasium level. agitation better have jaundice right hand swelling better , no Acute Issue . Low sodium better. Need endoscopy when stable..d/w SCRAP METAL [facility] [place] check chest x- ray and on Lasix 40 mg PO Daily. MRI / MRA of Brain within normal limits. Review of Systems Constitutional Constitutional Remarks ROS Unable to obtain because patient not communicating. GI/Abdomen GI/Abdomen Remarks Jaundice, Abdominal distention. Integumentary Skin Remarks Multiple right arm and chest Bruises Neurologic Neurologic: Confused Vitals/Results Intake & Output 08/18/16 08/18/16 08/19/16 15:00 23:00 07:00 Intake Total 625 ml 1147 ml 152 ml Output Total 1950 ml 2300 ml 300 ml Balance -1325 ml -1153 ml -148 ml Intake Oral 100 ml 150 ml 50 ml IV Total 425 ml 897 ml 102 ml Albumin 100 ml 100 ml Output Urine Total 1950 ml 2300 ml 300 ml # Bowel Movements 0 0 0 Vital Signs Vital Signs Date Time Temp Pulse Resp B/P Pulse Ox O2 Delivery O2 Flow Rate FiO2 08/19/16 06:00 92 08/19/16 04:00 89 08/19/16 04:00 98.7 89 30 173/79 95 08/19/16 02:00 90 08/19/16 00:00 98.8 79 28 161/77 97 08/19/16 00:00 79 08/18/16 22:00 80 08/18/16 20:00 98.2 79 24 167/80 100 08/18/16 20:00 79 08/18/16 19:00 98 Nasal Cannula 4.00 08/18/16 16:00 98.4 79 25 157/77 99 08/18/16 12:00 98.6 83 26 156/72 97 08/18/16 08:00 97.9 80 28 182/86 97 08/18/16 08:00 80 08/18/16 07:00 92 Nasal Cannula 4.00 CBC/BMP: 08/18/16 0908 08/18/16 0908 Lab Results Laboratory Tests Test 08/18/16 09:08 White Blood Count 7.1 TH/MM3 Red Blood Count 2.32 MIL/MM3 Hemoglobin 8.4 GM/DL Hematocrit 25.0 % Mean Corpuscular Volume 108.1 FL Mean Corpuscular Hemoglobin 36.3 PG Mean Corpuscular Hemoglobin 33.6 % Concent Red Cell Distribution Width 23.3 % Platelet Count 25 TH/MM3 Mean Platelet Volume 8.7 FL Neutrophils (%) (Auto) 69.5 % Lymphocytes (%) (Auto) 18.0 % Monocytes (%) (Auto) 11.0 % Eosinophils (%) (Auto) 0.5 % Basophils (%) (Auto) 1.0 % Neutrophils # (Auto) 4.9 TH/MM3 Lymphocytes # (Auto) 1.3 TH/MM3 Monocytes # (Auto) 0.8 TH/MM3 Eosinophils # (Auto) 0.0 TH/MM3 Basophils # (Auto) 0.1 TH/MM3 CBC Comment AUTO DIFF Differential Total Cells 100 Counted Neutrophils % (Manual) 72 % Band Neutrophils % 10 % Lymphocytes % 8 % Monocytes % 8 % Basophils % 1 % Neutrophils # (Manual) 5.9 TH/MM3 Metamyelocytes 1 % Nucleated Red Blood Cells 1 /100 WBC Differential Comment FINAL DIFF MANUAL Toxic Granulation 1+ Platelet Estimate LOW Platelet Morphology Comment NORMAL Prothrombin Time 21.3 SEC Prothromb Time International 1.9 RATIO Ratio Activated Partial 40.8 SEC Thromboplast Time Fibrinogen 153 mg/dL Sodium Level 141 MEQ/L Potassium Level 3.4 MEQ/L Chloride Level 110 MEQ/L Carbon Dioxide Level 23.0 MEQ/L Anion Gap 8 MEQ/L Blood Urea Nitrogen 20 MG/DL Creatinine 0.77 MG/DL Estimat Glomerular Filtration 106 ML/MIN Rate Random Glucose 170 MG/DL Calcium Level 7.8 MG/DL Phosphorus Level 2.2 MG/DL Magnesium Level 1.9 MG/DL Total Bilirubin 10.8 MG/DL Aspartate Amino Transf 85 U/L (AST/SGOT) Alanine Aminotransferase 42 U/L (ALT/SGPT) Alkaline Phosphatase 74 U/L Ammonia 20 MCMOL/L Total Protein 7.3 GM/DL Albumin 2.1 GM/DL Amylase Level 125 U/L Lipase 2131 U/L Physical Exam General General Appearance: No Acute Distress, Comfortable Eyes Eye Exam: Pupils Equal, Pupils Reactive, Extraocular Movement Intact Eye Remarks yellow sclera. Throat Throat Exam: Oral Mucosa [place] & Moist, Oral Pharynx Normal Neck Neck Exam: Neck Supple, Trachea Midline Pulmonary Resp Exam: Clear Bilaterally, Breath Sounds Equal, No Distress Cardiology CV Exam: Regular, Normal Sinus Rhythm Gastrointestinal/Abdomen GI Exam: Soft, Non-Tender, Bowel Sounds Present Musculoskeletal MS Exam: Normal Tone, Unable to Ambulate MS Remarks swelling and bruises right upper extremity. Integumentary Skin Exam: Warm, Dry Skin Remarks Multiple Bruises right upper extremity and chest. yellow discoloration of skin and conjuctiva. Extremeties Extremities Exam: Moderate Edema Neurologic Neuro Exam: Alert, Awake, Moving All Extremities Neuro Remarks confused. VTE Prophylaxis VTE Prophylaxis Device: SCDs PUD Prophylasis PUD Prophylaxis: Protonix Assessment/Plan Assessment/Plan ASSESSMENT/PLAN This is 50-year-old male who came to the ER diagnosed with status post fall secondary to balance problem, secondary to the left acoustic neuroma removed and Alcohol intoxication causing multiple large bruises. Need to check the right upper extremity frequently for compartment syndrome, Vascular surgery input noted. Keep the right upper extremity elevated and frequently check neurovascular status. Acute anemia secondary to acute bleed in the right upper extremity. We will monitor H&H and s/p packed RBC blood transfusion. Low platelets secondary to alcoholic liver disease. Hematology input noted, s/p platelet transfusion. Hyponatremia. The patient is on normal saline. We will monitor, improving...better. Hypocalcemia. The patient is status post calcium gluconate. High LFTs secondary to alcoholic liver disease. GI input noted. Further recommendation per GI. High lipase. Alcohol abuse/Intoxication. The patient's alcohol level was 258. The patient advised to stop drinking alcohol. The patient is on DT prophylaxis, thiamine, folic acid and Librium.. Coagulopathy, INR was 1.9, secondary to alcohol liver disease. Generalized weakness secondary to multiple factor as dictated above. History of left acoustic neuroma status post removal, the patient has a balance problem DVT prophylaxis, SCD's. GI prophylaxis, Protonix. Altered mental status hepatic encephalopathy and DT Poor prognosis with advance liver disease. Hospice consulted. Hypokalemia Will replace check magnasium level. Check CBC with diff CMP in AM. We are going to manage the patient on a daily basis and make recommendations on a daily basis. OK to DC under hospice care. Discussed Condition with: Patient Ramiro Perez MD Aug 19, 2016 06:46
[2016-08-19] MEDS: INSULIN NovoLIN REGULAR SUPPLEMENTAL SCALE SQ SCH ×2 (06:52→11:00)
[2016-08-19 07:07] LABS: AUTOMATED NEUTROPHIL # 4.8 TH/MM3 (1.8-7.7); BASOPHIL # 0.1 TH/MM3 (0-0.2); BASOPHIL % 1.3 % (0.0-2.0); EOSINOPHIL % 0.7 % (0.0-4.0); HEMATOCRIT 22.4 % (39.0-51.0); LYMPH % 18.1 % (9.0-44.0); LYMPHOCYTE # 1.2 TH/MM3 (1.0-4.8); MEAN CELL VOLUME 108.7 FL (80.0-100.0); MEAN CORPUSCULAR HEMOGLOBIN 35.6 PG (27.0-34.0); MEAN CORPUSCULAR HGB CONC 32.7 % (32.0-36.0); MONO % 9.8 % (0.0-8.0); NEUT % 70.1 % (16.0-70.0); PLATELET COUNT 33 TH/MM3 (150-450); RED BLOOD COUNT 2.06 MIL/MM3 (4.50-5.90); RED CELL DISTRIBUTION WIDTH 22.5 % (11.6-17.2); WHITE BLOOD COUNT 6.9 TH/MM3 (4.0-11.0)
[2016-08-19 07:11] LABS: ALT (GPT) 39 U/L (12-78); ANION GAP 9 MEQ/L (5-15); AST (GOT) 80 U/L (15-37); BICARBONATE 24.1 MEQ/L (21.0-32.0); BLOOD UREA NITROGEN 18 MG/DL (7-18); CHLORIDE 112 MEQ/L (98-107); GLOMERULAR FILTRATION RATE 122 ML/MIN (>89); SODIUM (NA) 145 MEQ/L (136-145)
[2016-08-19 07:13] LABS: ALKALINE PHOSPHATASE 61 U/L (45-117); TOTAL BILIRUBIN ADULT 9.9 MG/DL (0.2-1.0)
[2016-08-19 07:51] LABS: HEMO FLAGS AUTO DIFF
[2016-08-19] MEDS: FOLIC ACID 1 MG TAB PO SCH (09:00)
[2016-08-19] MEDS: CALCIUM CARBONATE 500 MG CHEWABLE TAB PO SCH (09:00)
[2016-08-19] MEDS: RIFAXIMIN 550 MG TAB PO SCH (09:00)
[2016-08-19] MEDS: LACTULOSE SYRUP 20 GM/30 ML CUP PO SCH ×2 (09:00→13:00)
[2016-08-19] MEDS ORDERED: ICU - POTASSIUM CHLORIDE/AQUEOUS SOLN 40 MEQ/100 ML IVPB IV PRN (09:15)
[2016-08-19] MEDS ORDERED: ICU - SODIUM PHOSPHATE 30 MMOL/NS 250 ML IV PRN ×2 (09:15)
[2016-08-19] MEDS ORDERED: ICU - POTASSIUM PHOSPHATE MONOBASIC 500 MG TAB PO PRN (09:15)
[2016-08-19] MEDS ORDERED: ICU - POTASSIUM CHLORIDE/AQUEOUS SOLN 20 MEQ/100 ML IVPB IV PRN (09:15)
[2016-08-19] MEDS ORDERED: ICU - MAGNESIUM OXIDE 400 MG TAB PO PRN (09:15)
[2016-08-19] MEDS ORDERED: ICU - MAGNESIUM SULFATE 2 GM/NS 100 ML IV PRN ×2 (09:15)
[2016-08-19] MEDS ORDERED: POTASSIUM CHLORIDE 25 MEQ EFFERVESCENT TAB PO PRN (09:15)
[2016-08-19] MEDS ORDERED: ICU - MAGNESIUM SULFATE 4 GM/NS 100 ML IV PRN ×2 (09:15)
[2016-08-19] MEDS: SODIUM CHLORIDE 0.9% FLUSH 10 ML FLUSH IV FLUSH SCH (10:06)
[2016-08-19] MEDS: cloNIDine HCL 0.2 MG TAB PO SCH (10:06)
[2016-08-19] MEDS: THIAMINE INJ 100 MG in SODIUM CHLORIDE 0.9% INJ 100 ML IV SCH (10:06)
[2016-08-19] MEDS: FUROSEMIDE 40 MG/4 ML VIAL IV PUSH SCH (10:06)
[2016-08-19] MEDS: PANTOPRAZOLE SODIUM 40 MG VIAL IV PUSH SCH (10:06)
[2016-08-19 11:40] LABS: BANDS 10 % (0-6); BASOPHILS 3 % (0-2); CORRECTED NUCLEATED RBC 1 /100 WBC (0-0); EOSINOPHILS 2 % (0-4); MYELOCYTES 3 % (0-0); NEUTROPHIL # MANUAL DIFF 5.9 TH/MM3 (1.8-7.7); POLYS (SEG NEUTROPHILS) 73 % (16-70); WBC DIFF SAMPLE 100
[2016-08-19 11:41] LABS: PLATELET ESTIMATE SMEAR LOW (NORMAL); PLATELET MORPHOLOGY NORMAL (NORMAL); POLYCHROMASIA 2.3 % (0.0-1.9); SCAN/DIFF FINAL DIFF MANUAL
--- NOTE | 2016-08-19 12:05 | PD.ONC.PN ---
Subjective Subjective Remarks Tmax 100F overnight. Patient obtunded. Patient's daughter and healthcare surrogate has chosen [facility]. Objective Data Date Time Temp Pulse Resp B/P Pulse Ox O2 Delivery O2 Flow Rate FiO2 08/19/16 08:00 100.0 90 30 172/80 90 08/19/16 08:00 90 08/19/16 07:00 91 Nasal Cannula 4.00 08/19/16 06:00 92 08/19/16 04:00 89 08/19/16 04:00 98.7 89 30 173/79 95 08/19/16 02:00 90 08/19/16 00:00 98.8 79 28 161/77 97 08/19/16 00:00 79 08/18/16 22:00 80 08/18/16 20:00 98.2 79 24 167/80 100 08/18/16 20:00 79 08/18/16 19:00 98 Nasal Cannula 4.00 08/18/16 16:00 98.4 79 25 157/77 99 08/19/16 08/19/16 08/19/16 07:00 15:00 23:00 Intake Total 152 ml Output Total 300 ml Balance -148 ml Result Diagram: 08/19/16 0524 08/19/16 0524 Laboratory Results Laboratory Tests Test 08/19/16 05:24 White Blood Count 6.9 TH/MM3 Red Blood Count 2.06 MIL/MM3 Hemoglobin 7.3 GM/DL Hematocrit 22.4 % Mean Corpuscular Volume 108.7 FL Mean Corpuscular Hemoglobin 35.6 PG Mean Corpuscular Hemoglobin 32.7 % Concent Red Cell Distribution Width 22.5 % Platelet Count 33 TH/MM3 Mean Platelet Volume 9.8 FL Neutrophils (%) (Auto) 70.1 % Lymphocytes (%) (Auto) 18.1 % Monocytes (%) (Auto) 9.8 % Eosinophils (%) (Auto) 0.7 % Basophils (%) (Auto) 1.3 % Neutrophils # (Auto) 4.8 TH/MM3 Lymphocytes # (Auto) 1.2 TH/MM3 Monocytes # (Auto) 0.7 TH/MM3 Eosinophils # (Auto) 0.0 TH/MM3 Basophils # (Auto) 0.1 TH/MM3 CBC Comment AUTO DIFF Differential Total Cells 100 Counted Neutrophils % (Manual) 73 % Band Neutrophils % 10 % Lymphocytes % 6 % Monocytes % 3 % Eosinophils % 2 % Basophils % 3 % Neutrophils # (Manual) 5.9 TH/MM3 Myelocytes 3 % Nucleated Red Blood Cells 1 /100 WBC Differential Comment FINAL DIFF MANUAL Platelet Estimate LOW Platelet Morphology Comment NORMAL Polychromasia 2.3 % Sodium Level 145 MEQ/L Potassium Level 3.0 MEQ/L Chloride Level 112 MEQ/L Carbon Dioxide Level 24.1 MEQ/L Anion Gap 9 MEQ/L Blood Urea Nitrogen 18 MG/DL Creatinine 0.68 MG/DL Estimat Glomerular Filtration 122 ML/MIN Rate Random Glucose 136 MG/DL Calcium Level 8.2 MG/DL Magnesium Level 1.8 MG/DL Total Bilirubin 9.9 MG/DL Aspartate Amino Transf 80 U/L (AST/SGOT) Alanine Aminotransferase 39 U/L (ALT/SGPT) Alkaline Phosphatase 61 U/L Total Protein 6.9 GM/DL Albumin 2.4 GM/DL Culture Results Microbiology Date/Time Procedure Status Source Growth 08/16/16 13:35 Stool Occult Blood (IZABEL) - Final Complete Stool Stool HEMOCCULT POSITIVE Administered Medications Medications (Trade) Dose Ordered Sig/Ivan Route PRN Reason Start Time Stop Time Status Last Admin Dose Admin Sodium Chloride (NS Flush) 2 ml BID IV FLUSH 08/08/16 09:00 08/19/16 10:06 Naloxone HCl (Narcan Inj) 0.4 mg UNSCH PRN IV SEE LABEL COMMENTS 08/07/16 22:45 08/16/16 14:16 Clonidine (Catapres) 0.2 mg BID PO 08/08/16 09:00 08/19/16 10:06 Folic Acid (Folate) 1 mg DAILY PO 08/09/16 09:00 08/18/16 08:53 Pantoprazole Sodium (Protonix Inj) 40 mg Q12H IV PUSH 08/09/16 09:30 08/19/16 10:06 Pentoxifylline (TRENtal SR) 400 mg Q8HR PO 08/09/16 14:00 08/19/16 05:11 Rifaximin (Xifaxan) 550 mg BID PO 08/10/16 21:00 08/18/16 20:07 Lactulose (Lactulose Liq) 30 ml QID PO 08/11/16 13:00 08/18/16 20:07 Calcium Carbonate (Tums Chew) 500 mg BID PO 08/12/16 09:00 08/18/16 20:07 Clonidine (Catapres) 0.1 mg Q6H PRN PO SBP>160, DBP>90 08/14/16 17:00 08/19/16 05:11 Furosemide (Lasix Inj) 40 mg DAILY IV PUSH 08/16/16 11:15 08/19/16 10:06 Chlorhexidine Gluconate 3 pack 3 pack DAILY@04 TOPICAL 08/17/16 04:00 08/21/16 04:01 08/19/16 04:00 Thiamine HCl/ Sodium Chloride (Thiamine Inj/NS Inj) 101 ml @ 101 mls/hr DAILY IV 08/18/16 09:00 08/19/16 10:06 Albumin Human 25 gm 25 gm Q8H IV 08/17/16 22:00 08/20/16 21:59 08/19/16 05:11 Potassium Chloride (KCl 20 Meq Premix Inj) 100 ml @ 50 mls/hr UNSCH PRN IV ELECTROLYTE REPLACEMENT 08/19/16 09:15 08/19/16 10:06 Objective Remarks GENERAL: Obtunded male, lying in bed supine. SKIN: Warm and dry.scattered bruising. HEAD: Normocephalic. EYES: No scleral icterus. No injection or drainage. NECK: Supple, trachea midline. e and rhythm without murmurs. CARDIO: +S1/S2 RESPIRATORY: Breath sounds equal bilaterally. No accessory muscle use. GASTROINTESTINAL: Abdomen soft, non-tender, nondistended. EXTREMITIES: No cyanosis NEUROLOGICAL: obtunded Assessment/Plan Problem List: (1) Thrombocytopenia Status: Chronic Plan: 08/19: patient to be discharged with hospice today, comfort measures only. --is acute on chronic. --underlying thrombocytopenia due to cirrhosis and splenomegaly. (2) Anemia Status: Acute Plan: --multifactorial from bleeding and bone marrow suppression due to alcohol. --can also have vitamin deficiency given his history of gastric bypass surgery. (3) Coagulopathy Status: Acute Plan: -- due to liver disease from alcohol use. Assessment 50y/o male admitted to [facility]. Hematology consulted for thrombocytopenia and anemia. history of alcohol abuse and cirrhosis with portal hypertension Gastric bypass surgery, cholecystectomy. Attending Statement confuse Family has decided for hospice. D/W RN d/c to hospice. sign off available prn Radha Wright Aug 19, 2016 12:05 Xavier Lang MD Aug 19, 2016 19:21
[2016-08-19 13:41] LABS: APTT (PATIENT) 41.7 SEC (24.3-30.1); INTERNATIONAL NORMALIZED RATIO 1.8 RATIO
--- NOTE | 2016-08-23 10:20 | MD ---
cc: RAMIRO RAMIREZ MD ADMISSION DATE: 08/07/2016 DISCHARGE DATE: 08/19/2016 Okay to discharge the patient on hospice care. Condition at the time of discharge: Same. Activity: As tolerated. Diet: Cardiac diet. ALLERGIES 1. ATIVAN. 2. CELEBREX. DISCHARGE MEDICATIONS and morphine as needed. ADMITTING DIAGNOSIS 1. Status post fall leading to multiple bruises on the right upper extremity as well as the chest area. The patient is status post internal bleeding and got packed red blood cell transfusion and fresh frozen plasma and cryoprecipitate transfusion. 2. Acute anemia secondary to acute bleed inside the right upper extremity and chest area. 3. Low platelet count secondary to alcoholic liver disease. 4. End-stage liver disease. The patient's INR was 1.9 and 2.0. 5. Hyponatremia, which has improved. 6. Hypocalcemia, which was replaced during the hospital stay. 7. High LFTs secondary to alcoholic liver disease. The patient is still drinking. 8. High lipase. The patient has no abdominal pain. 9. Alcohol intoxication. The alcohol level was 258. The patient was agitated and was in restraints because of alcohol withdrawal. The patient was given Librium, folic acid and thiamine. 10.Coagulopathy. The patient had INR of 1.9. 11.History of left acoustic neuroma status post removal in the past. 12.Altered mental status secondary to most likely hepatic encephalopathy which has improved. 13.Hypokalemia, which was replaced. HOSPITAL COURSE This is a 50-year-old male admitted status post fall. The patient has a history of alcoholic intoxication and drinks a 12-pack a day of alcohol for many years. The patient has end-stage liver disease. The patient was seen by multiple consultants including GI, hematology/oncology, Palliative Care, and speech therapy. The patient had a vaccine during the hospital stay. The patient was admitted to critical care, discharged out of critical care, and eventually sent back to critical care because of altered mental status. The patient and family decided to go for hospice care. The patient was discharged on hospice care. The patient had a hemoglobin of 7.3 on the day of discharge with a hematocrit of 22.4. Platelet count was 33. The patient got platelet transfusion during the hospital stay. The patient also had hypokalemia. Magnesium level was 1.8. The patient had high LFTs secondary to alcoholic liver disease. Please see further details in the medical record. Ramiro Ramirez MD EA/VERONA /12:11 PM /10:03 AM
== END 2016-08-19 17:05 | disposition hospice, inpatient (51) | DRG 604 ==
LOC: PHED 18:28 → PHEDA 21:11 → PH3A 23:40 → HIME 08-08 12:00 → HOCA 08-12 17:07 → HIMW 08-16 13:50
PROVIDERS: ADMIT Family Medicine; ATTEND Family Medicine
PROC: 30233N1 Transfusion of Nonautologous Red Blood Cells into Peripheral Vein, Percutaneous Approach (ICD-10-PCS; principal; 2016-08-08)
PROC: 30233R1 Transfusion of Nonautologous Platelets into Peripheral Vein, Percutaneous Approach (ICD-10-PCS; 2016-08-08)
PROC: 30233K1 Transfusion of Nonautologous Frozen Plasma into Peripheral Vein, Percutaneous Approach (ICD-10-PCS; 2016-08-09)
DX: S40.021A Contusion of right upper arm, initial encounter (principal); G92 Toxic encephalopathy; D68.9 Coagulation defect, unspecified; F10.231 Alcohol dependence with withdrawal delirium; K76.6 Portal hypertension; D62 Acute posthemorrhagic anemia; E87.1 Hypo-osmolality and hyponatremia; K92.2 Gastrointestinal hemorrhage, unspecified; D69.59 Other secondary thrombocytopenia; M79.89 Other specified soft tissue disorders; E83.51 Hypocalcemia; I10 Essential (primary) hypertension; K21.9 Gastro-esophageal reflux disease without esophagitis; F32.9 Major depressive disorder, single episode, unspecified; M19.90 Unspecified osteoarthritis, unspecified site; F17.210 Nicotine dependence, cigarettes, uncomplicated; Y90.8 Blood alcohol level of 240 mg/100 ml or more; F10.20 Alcohol dependence, uncomplicated; R26.81 Unsteadiness on feet; R16.1 Splenomegaly, not elsewhere classified; K70.31 Alcoholic cirrhosis of liver with ascites; R41.3 Other amnesia; S00.83XA Contusion of other part of head, initial encounter; K70.11 Alcoholic hepatitis with ascites; R74.8 Abnormal levels of other serum enzymes; S30.1XXA Contusion of abdominal wall, initial encounter; G47.33 Obstructive sleep apnea (adult) (pediatric); E88.09 Other disorders of plasma-protein metabolism, not elsewhere classified; D53.9 Nutritional anemia, unspecified; R60.0 Localized edema; H70.92 Unspecified mastoiditis, left ear; Z66 Do not resuscitate; K72.90 Hepatic failure, unspecified without coma; E87.6 Hypokalemia; R13.10 Dysphagia, unspecified; R29.6 Repeated falls; Z51.5 Encounter for palliative care; Z96.653 Presence of artificial knee joint, bilateral; Z98.84 Bariatric surgery status; Z87.11 Personal history of peptic ulcer disease; Z90.49 Acquired absence of other specified parts of digestive tract; W18.30XA Fall on same level, unspecified, initial encounter; Y92.002 Bathroom of unspecified non-institutional (private) residence as the place of occurrence of the external cause
CPT/HCPCS: 36430; 70450; 70544; 70551; 71010; 73080; 73110; 74177; 76700; 76937; 80048; 80053; 80076; 80307; 82140; 82150; 82272; 82550; 82607; 82728; 82746; 82948; 83540; 83550; 83605; 83690; 83735; 84100; 84132; 84155; 85007; 85014; 85018; 85025; 85027; 85384; 85610; 85730; 86850; 86900; 86901; 86920; 86927; 86965; 87641; 93005; 93971; 94003; 96372; 96374; 96375; 99285; C9113; J0610; J1630; J1940; J2270; J2310; J2405; J3411; J3430; J3480; J7030; J7040; J7042; J7050; P9016; P9017; P9035; P9047; Q9967